=== PATIENT | female | born 1930 | race Caucasian/White ===

== ENCOUNTER 2016-03-11 12:03 | Inpatient (IN) | payer OTHER ==
--- NOTE | 2016-03-11 14:05 | PDOC ---
History of Present Illness - History of Present Illness Initial Comments: 03/11/16 14:56 Patient is an 85 year old female with significant medical hx of DVT, hypertension, hyperlipidemia, diabetes, and dementia who is presenting to the ED for abnormal labs. The patient is accompanied by family member who reports the patient has had high blood sugar the past few days measured as high as 320. The patient also recently saw Dr. Powell who reported she was hyponatremic. The patient complains of nausea and weakness; family member states she vomited a few times last week. The patient recently had biopsy done on a cell growth on the skin of her forehead that revealed cancer. Patient lives at home. PCP: Karson Powell MD <Renetta Tabor - Last Filed: 03/11/16 15:04> <Roman Yoon - Last Filed: 03/11/16 18:37> - General Chief Complaint: Blood Sugar Problem Stated Complaint: PCP SENT, HIGH SUGAR, DIZZY Past History <Renetta Tabor - Last Filed: 03/11/16 15:04> - Past Medical History Anemia: No Asthma: No Cancer: Yes (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) Cardiac Disorders: No CVA: No COPD: No CHF: No Diabetes: Yes Disorders: Yes HTN: Yes Hypercholesterolemia: Yes Suicide Attempt (Hx): No Seizures: No Thyroid Disease: No - Surgical History Abdominal Surgery: No Appendectomy: No Cholecystectomy: No Lung Surgery: Yes (tumor removed from right lung in 1996) Neurologic Surgery: No Orthopedic Surgery: No - Immunization History Immunization Up to Date: Yes - Psycho/Social/Smoking Cessation Hx Anxiety: No Suicidal Ideation: No Smoking Status: Yes Smoking History: Never smoked Years of Tobacco Use: 20 Have you smoked in the past 12 months: No Number of Cigarettes Smoked Daily: 0 If you are a former smoker, when did you quit?: 50yrs ago Information on smoking cessation initiated: No Hx Alcohol Use: No Drug/Substance Use Hx: No Substance Use Type: None Hx Substance Use Treatment: No <Roman Yoon - Last Filed: 03/11/16 18:37> - Past Medical History Allergies/Adverse Reactions: Allergies Allergy/AdvReac Type Severity Reaction Status Date / Time morphine Allergy Mild Swelling Verified 03/11/16 12:04 Home Medications: Ambulatory Orders Acetaminophen [Mapap] 500 mg PO PRN PRN 03/11/16 Amlodipine/Valsartan [Exforge 5-320 mg Tablet] 1 tab PO DAILY 03/11/16 Ammonium Lactate Cream [Lac-Hydrin] 1 applic TP BID 03/11/16 Aspirin [ASA -] 81 mg PO DAILY 03/11/16 Atorvastatin Ca [Lipitor] 10 mg PO DAILY 03/11/16 Dexlansoprazole [Dexilant] 60 mg PO DAILY 03/11/16 Diclofenac Sodium [Voltaren] 100 gm TP BID 03/11/16 Fenofibric Acid [Trilipix -] 45 mg PO DAILY 03/11/16 Furosemide [Lasix] 20 mg PO DAILY 03/11/16 Gabapentin [Neurontin] 100 mg PO BID 03/11/16 Glipizide [Glipizide ER] 10 mg PO BID 03/11/16 Icosapent Ethyl [Vascepa] 2 gm PO BID 03/11/16 Insulin Aspart [Novolog] 0 unit SQ DAILY 03/11/16 Insulin Glargine,Hum.rec.anlog [Toujeo Solostar] 35 unit SQ DAILY 03/11/16 Linaclotide [Linzess] 145 mcg PO DAILY 03/11/16 Nebivolol HCl [Bystolic] 5 mg PO DAILY 03/11/16 Nystatin Powder [Nystop Topical Powder -] 60 gm TP BID 03/11/16 Thiamine HCl [B-1] 100 mg PO DAILY 03/11/16 Review of Systems - Review of Systems Comments:: 03/11/16 14:57 CONSTITUTIONAL: Present: weakness Absent: fever, chills, diaphoresis, malaise, loss of appetite HEENT: Absent: rhinorrhea, nasal congestion, throat pain, throat swelling, difficulty swallowing, mouth swelling, ear pain, eye pain, visual changes CARDIOVASCULAR: Absent: chest pain, syncope, palpitations, irregular heart rate, lightheadedness , peripheral edema RESPIRATORY: Absent: cough, shortness of breath, dyspnea with exertion, orthopnea, wheezing, stridor, hemoptysis GASTROINTESTINAL: Present: nausea, vomiting Absent: abdominal pain, abdominal distension, diarrhea, constipation, melena, hematochezia GENITOURINARY: Absent: dysuria, frequency, urgency, hesitancy, hematuria, flank pain, genital pain MUSCULOSKELETAL: Absent: myalgia, arthralgia, joint swelling SKIN: Absent: rash, itching, pallor HEMATOLOGIC/IMMUNOLOGIC: Absent: easy bleeding, easy bruising, lymphadenopathy, frequent infections ENDOCRINE: Absent: unexplained weight gain, unexplained weight loss, heat intolerance, cold intolerance NEUROLOGIC: Absent: headache, focal weakness or paresthesia, dizziness, unsteady gait, seizure, mental status changes, bladder or bowel incontinence. PSYCHIATRIC: Absent: anxiety, depression, suicidal or homicidal ideation, hallucinations <Renetta Tabor - Last Filed: 03/11/16 15:04> *Physical Exam - Vital Signs Last Vital Signs Temp Pulse Resp BP Pulse Ox 97.5 F L 76 17 126/61 97 03/11/16 12:04 03/11/16 12:04 03/11/16 12:04 03/11/16 12:04 03/11/16 12:04 - Physical Exam Comments: 03/11/16 14:58 GENERAL: Well developed, well nourished. Awake and alert. No acute distress. HEENT: Normocephalic, atraumatic. PERRLA, EOMI. No conjunctival pallor. Sclera are non- icteric. Moist mucous membranes. Oropharynx is clear. NECK: Supple. Full ROM. No JVD. Carotid pulses 2+ and symmetric, without bruits. No thyromegaly. No lymphadenopathy. CARDIOVASCULAR: Regular rate and rhythm. No murmurs, rubs, or gallops. Distal pulses are 2+ and symmetric. PULMONARY: No evidence of respiratory distress. Lungs clear to auscultation bilaterally. No wheezing, rales or rhonchi. ABDOMINAL: Obese. Soft. Non-tender. Non-distended. No rebound or guarding. No organomegaly. Normoactive bowel sounds. MUSCULOSKELETAL: Normal range of motion at all joints. No bony deformities or tenderness. No CVA tenderness. EXTREMITIES: No cyanosis. No clubbing. No edema. No calf tenderness. 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 Warm and dry. Normal capillary refill. No jaundice. NEUROLOGICAL: Alert, awake, demented. No neurological deficits. Symmetric. Good, equal grasp in both hands. Cranial nerves 2-12 intact. Gait is normal without ataxia. PSYCHIATRIC: Cooperative. Good eye contact. Appropriate mood and affect. <Renetta Tabor - Last Filed: 03/11/16 15:04> - Vital Signs Last Vital Signs Temp Pulse Resp BP Pulse Ox 97.5 F L 76 17 126/61 97 03/11/16 12:04 03/11/16 12:04 03/11/16 12:04 03/11/16 12:04 03/11/16 12:04 <Roman Yoon - Last Filed: 03/11/16 18:37> ED Treatment Course - RADIOLOGY Radiograph Interpretation: 03/11/16 15:04 Chest X-Ray Since the prior study of 10/15/2015, again noted is the prominent mediastinum with weak inspiration and some new atelectatic changes in the right and left lower lung parker. Correlation recommended. Reported By: Frankie Bullock MD <Renetta Tabor - Last Filed: 03/11/16 15:04> - LABORATORY CBC & Chemistry Diagram: 03/11/16 15:45 03/11/16 16:40 <Roman Yoon - Last Filed: 03/11/16 18:37> *DC/Admit/Observation/Transfer - Attestations Scribe Attestion: 03/11/16 15:01 Documentation prepared by Renetta Tabor, acting as medical resident for Roman Yoon MD. <Renetta Tabor - Last Filed: 03/11/16 15:04> - Discharge Dispostion Admit: Yes <Roman Yoon - Last Filed: 03/11/16 18:37> Diagnosis at time of Disposition: Hyponatremia, Uncontrolled diabetes mellitus, Chronic kidney disease (CKD) - Discharge Dispostion Condition at time of disposition: Stable - Referrals Referrals: Karson Powell MD [Primary Care Provider] -
[2016-03-11 16:04] LABS: BASOPHIL 1.1 % (0-2.0); EOSINOPHIL 2.2 % (0-4.5); MCH 24.9 pg (25.7-33.7); MCHC 31.8 g/dl (32.0-36.0); MEAN CELL VOLUME 78.5 fl (80-96); NEUTROPHILS 67.5 % (42.8-82.8); RDW 15.6 % (11.6-15.6); WHITE BLOOD COUNT 9.6 K/mm3 (4.0-10.0)
[2016-03-11 16:38] LABS: PLATELET COMMENT2 SLT PLT CLUMPING; PLATELET COMMENT3 UNABLE TO ENUMERATE; PLATELET ESTIMATE ADEQUATE (NORMAL)
[2016-03-11 17:14] LABS: ALBUMIN 3.8 g/dl (3.4-5.0); CALCIUM 9.4 mg/dL (8.5-10.1); CREATININE 1.4 mg/dL (0.55-1.02)
[2016-03-11 17:15] LABS: BILIRUBIN,TOTAL 0.4 mg/dL (0.2-1.0); TOT PROT 7.8 g/dl (6.4-8.2)
[2016-03-11] MEDS ORDERED: SODIUM CHLORIDE 1,000 ML IV SCH (18:15)
[2016-03-11] MEDS ORDERED: FUROSEMIDE 20 MG TABLET (FP) PO PRN (18:46)
[2016-03-11] MEDS ORDERED: ACETAMINOPHEN 325 MG TABLET (FP) PO PRN (18:46)
[2016-03-11] MEDS ORDERED: glipiZIDE 5 MG TABLET (FP) ONE (20:55)
[2016-03-11] MEDS ORDERED: ATORVASTATIN CA 40 MG TABLET (FP) ONE (20:56)
[2016-03-11] MEDS: HEPARIN NA (PORCINE) 5,000 UNITS/ML 1ML VIAL SQ SCH (21:23)
[2016-03-11] MEDS: AMMONIUM LACTATE 12% LOTION 225 GM BOTTLE TP SCH (21:23)
[2016-03-11] MEDS: NYSTATIN POWDER 100,000 UNITS/GM - 15 GM TOPICAL POWDER TP SCH (21:24)
[2016-03-11] MEDS: GABAPENTIN 100 MG CAPSULE (FP) PO SCH (21:24)
[2016-03-11] MEDS: ATORVASTATIN CA 10 MG TABLET (FP) PO SCH (21:24)
[2016-03-11] MEDS ORDERED: INSULIN (NOVOLOG) ASPART 100 UNITS/ML 10ML VIAL ONE (21:29)
[2016-03-11] MEDS: INSULIN SLIDING SCALE (NOVOLOG) 1 VIAL SQ SCH (21:33)
[2016-03-11] MEDS ORDERED: glipiZIDE-XL 10 MG TAB.ER.24 (FP) PO SCH ×2 (22:00→22:06)
[2016-03-11] MEDS ORDERED: PATIENT'S OWN MEDICATION (NON-FORMULARY) (Diclofenac Sodium [Voltaren] 100 GM) TP SCH (22:00)
[2016-03-11] MEDS ORDERED: PATIENT'S OWN MEDICATION (NON-FORMULARY) (Icosapent Ethyl [Vascepa] 2 GM) PO SCH (22:00)
[2016-03-12 05:51] VITALS: BMI 33.5
[2016-03-12] MEDS: INSULIN SLIDING SCALE (NOVOLOG) 1 VIAL SQ SCH ×4 (06:22→21:44)
[2016-03-12] MEDS: INSULIN DETEMIR 100 UNITS/ML MDV SQ SCH (06:22)
[2016-03-12 08:26] LABS: EOSINOPHIL 2.9 % (0-4.5); MCH 25.9 pg (25.7-33.7); MEAN CELL VOLUME 78.4 fl (80-96); MEAN PLT VOLUME 6.6 fl (7.5-11.1); NEUTROPHILS 62.4 % (42.8-82.8); PLATELET COUNT 294 K/MM3 (134-434); RDW 15.4 % (11.6-15.6); WHITE BLOOD COUNT 6.6 K/mm3 (4.0-10.0)
[2016-03-12 08:44] LABS: BILIRUBIN,TOTAL 0.4 mg/dL (0.2-1.0); CALCIUM 8.5 mg/dL (8.5-10.1); CREATININE 1.6 mg/dL (0.55-1.02); TOT PROT 6.1 g/dl (6.4-8.2)
[2016-03-12] MEDS ORDERED: PATIENT'S OWN MEDICATION (NON-FORMULARY) (Amlodipine/Valsartan [Exforge 5-320 Mg Tablet] 1 PO SCH (10:00)
[2016-03-12] MEDS ORDERED: PATIENT'S OWN MEDICATION (NON-FORMULARY) (Linaclotide [Linzess] 145 MCG) PO SCH (10:00)
--- NOTE | 2016-03-12 10:24 | HP ---
Admitting History and Physical - Primary Care Physician PCP: Karson Powell I - Admission Chief Complaint: sent in by pmd for abnormal labs History of Present Illness: Patient is an 85 year old female with significant medical hx of DVT, hypertension, hyperlipidemia, diabetes, and dementia who is presenting to the ED for abnormal labs. The patient is accompanied by family member who reports the patient has had high blood sugar the past few days measured as high as 320. The patient also recently saw Dr. Powell who reported she was hyponatremic. The patient complains of nausea and weakness; family member states she vomited a few times last week. The patient recently had biopsy done on a cell growth on the skin of her forehead that revealed cancer. Patient lives at home. PCP: Karson Powell MD History Source: Family Member Limitations to Obtaining History: Language Barrier - Past Medical History Cardiovascular: Yes: Deep Vein Thrombosis, HTN, Hyperlipdemia Dermatology: Yes: Other (skin cancer at forehead) - Smoking History Smoking history: Never smoked Have you smoked in the past 12 months: No Aproximately how many cigarettes per day: 0 If you are a former smoker, when did you quit?: 50yrs ago - Alcohol/Substance Use Hx Alcohol Use: No Home Medications - Allergies Allergies/Adverse Reactions: Allergies Allergy/AdvReac Type Severity Reaction Status Date / Time morphine Allergy Mild Swelling Verified 03/11/16 12:04 - Home Medications Home Medications: Ambulatory Orders Acetaminophen [Mapap] 500 mg PO PRN PRN 03/11/16 Amlodipine/Valsartan [Exforge 5-320 mg Tablet] 1 tab PO DAILY 03/11/16 Ammonium Lactate Cream [Lac-Hydrin] 1 applic TP BID 03/11/16 Aspirin [ASA -] 81 mg PO DAILY 03/11/16 Atorvastatin Ca [Lipitor] 10 mg PO DAILY 03/11/16 Dexlansoprazole [Dexilant] 60 mg PO DAILY 03/11/16 Diclofenac Sodium [Voltaren] 100 gm TP BID 03/11/16 Fenofibric Acid [Trilipix -] 45 mg PO DAILY 03/11/16 Furosemide [Lasix] 20 mg PO DAILY 03/11/16 Gabapentin [Neurontin] 100 mg PO BID 03/11/16 Glipizide [Glipizide ER] 10 mg PO BID 03/11/16 Icosapent Ethyl [Vascepa] 2 gm PO BID 03/11/16 Insulin Aspart [Novolog] 0 unit SQ DAILY 03/11/16 Insulin Glargine,Hum.rec.anlog [Toujeo Solostar] 35 unit SQ DAILY 03/11/16 Linaclotide [Linzess] 145 mcg PO DAILY 03/11/16 Nebivolol HCl [Bystolic] 5 mg PO DAILY 03/11/16 Nystatin Powder [Nystop Topical Powder -] 60 gm TP BID 03/11/16 Thiamine HCl [B-1] 100 mg PO DAILY 03/11/16 Review of Systems - Review of Systems Respiratory: reports: No Symptoms Gastrointestinal: reports: No Symptoms Physical Examination Vital Signs: Vital Signs Temperature 98.1 F 03/12/16 05:39 Pulse Rate 69 03/12/16 05:39 Respiratory Rate 16 03/12/16 05:39 Blood Pressure 144/64 03/12/16 05:39 O2 Sat by Pulse Oximetry (%) 96 03/12/16 05:39 Constitutional: Yes: Calm, Thin Neck: Yes: Trachea Midline Cardiovascular: Yes: Regular Rate and Rhythm, S1, S2 Respiratory: Yes: CTA Bilaterally Gastrointestinal: Yes: Normal Bowel Sounds, Soft Neurological: Yes: Alert, Oriented Labs: CBC, BMP 03/12/16 07:00 03/12/16 07:00 Imaging - Results Chest X-ray: Report Reviewed Problem List - Problems (1) Chronic kidney disease (CKD) Assessment/Plan: renal consult renal sono Code(s): N18.9 - CHRONIC KIDNEY DISEASE, UNSPECIFIED Qualifiers: (2) DVT (deep venous thrombosis) Assessment/Plan: heparin sub q Code(s): I82.409 - ACUTE EMBOLISM AND THOMBOS UNSP DEEP VN UNSP LOWER EXTREMITY Qualifiers: DVT location: lower extremity Laterality: left Chronicity: chronic (3) Hyponatremia Assessment/Plan: iv hydration check tsh correct hyperglycemia Code(s): E87.1 - HYPO-OSMOLALITY AND HYPONATREMIA (4) Uncontrolled diabetes mellitus Assessment/Plan: endo insulin bgm hga1c nuerontin Code(s): E11.65 - TYPE 2 DIABETES MELLITUS WITH HYPERGLYCEMIA Qualifiers: Diabetes mellitus type: type 2 Diabetes mellitus complication status: with neurologic complications Diabetes mellitus complication detail: with unspecified neuropathy (5) Hyperlipidemia Assessment/Plan: triplipx and lovaza check lipid panel Code(s): E78.5 - HYPERLIPIDEMIA, UNSPECIFIED Qualifiers: Hyperlipidemia type: mixed hyperlipidemia Qualified Code(s): E78.2 - Mixed hyperlipidemia (6) Hypertension Assessment/Plan: stable Code(s): I10 - ESSENTIAL (PRIMARY) HYPERTENSION Qualifiers: Hypertension type: essential hypertension Qualified Code(s): I10 - Essential (primary) hypertension
[2016-03-12 11:12] LABS: INR 1.45 (0.82-1.09); PROTHROMBIN TIME (PATIENT) 16.1 SEC (9.98-11.88)
[2016-03-12] MEDS ORDERED: PT OWN MED DRAWER 7, Y5N ONE ×3 (11:26→21:16)
[2016-03-12] MEDS: amLODIPine BESYLATE 5 MG TABLET (FP) PO SCH (11:29)
[2016-03-12] MEDS: THIAMINE HCL 100 MG TABLET (FP) PO SCH (11:29)
[2016-03-12] MEDS: ASPIRIN 81 MG CHEWABLE TABLETS PO SCH (11:29)
[2016-03-12] MEDS: HEPARIN NA (PORCINE) 5,000 UNITS/ML 1ML VIAL SQ SCH ×2 (11:30→21:37)
[2016-03-12] MEDS: GABAPENTIN 100 MG CAPSULE (FP) PO SCH ×2 (11:30→21:44)
[2016-03-12] MEDS: VALSARTAN 160 MG TABLET (UD) PO SCH (11:30)
[2016-03-12] MEDS: LIDOCAINE 5% TOPICAL PATCH TP SCH (11:34)
[2016-03-12] MEDS: PANTOPRAZOLE 40 MG TABLET (FP) PO SCH (11:34)
--- NOTE | 2016-03-12 11:49 | CONSULT ---
Consult Consult Specialty:: Nephrology... Drs. Sam/ Brady Referred by:: Dr. Paul Reason for Consultation:: Thank you for the consult referral. Patient is an 85 y/o female who is found to have low serum Sodium - History of Present Illness Chief Complaint: The patient has h/o DM2. Recently her serum glucose had been running high. 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 Cardio/Vascular: Yes: Deep Vein Thrombosis, HTN, Hyperlipdemia Renal/: Yes: Renal Inusuff Dermatology: Yes: Other (skin cancer at forehead) - Alcohol/Substance Use Hx Alcohol Use: No - Smoking History Smoking history: Never smoked Have you smoked in the past 12 months: No Aproximately how many cigarettes per day: 0 If you are a former smoker, when did you quit?: 50yrs ago Home Medications - Allergies Allergies/Adverse Reactions: Allergies Allergy/AdvReac Type Severity Reaction Status Date / Time morphine Allergy Mild Swelling Verified 03/11/16 12:04 - Home Medications Home Medications: Ambulatory Orders Acetaminophen [Mapap] 500 mg PO PRN PRN 03/11/16 Amlodipine/Valsartan [Exforge 5-320 mg Tablet] 1 tab PO DAILY 03/11/16 Ammonium Lactate Cream [Lac-Hydrin] 1 applic TP BID 03/11/16 Aspirin [ASA -] 81 mg PO DAILY 03/11/16 Atorvastatin Ca [Lipitor] 10 mg PO DAILY 03/11/16 Dexlansoprazole [Dexilant] 60 mg PO DAILY 03/11/16 Diclofenac Sodium [Voltaren] 100 gm TP BID 03/11/16 Fenofibric Acid [Trilipix -] 45 mg PO DAILY 03/11/16 Furosemide [Lasix] 20 mg PO DAILY 03/11/16 Gabapentin [Neurontin] 100 mg PO BID 03/11/16 Glipizide [Glipizide ER] 10 mg PO BID 03/11/16 Icosapent Ethyl [Vascepa] 2 gm PO BID 03/11/16 Insulin Aspart [Novolog] 0 unit SQ DAILY 03/11/16 Insulin Glargine,Hum.rec.anlog [Toujeo Solostar] 35 unit SQ DAILY 03/11/16 Linaclotide [Linzess] 145 mcg PO DAILY 03/11/16 Nebivolol HCl [Bystolic] 5 mg PO DAILY 03/11/16 Nystatin Powder [Nystop Topical Powder -] 60 gm TP BID 03/11/16 Thiamine HCl [B-1] 100 mg PO DAILY 03/11/16 Review of Systems - Review of Systems Constitutional: denies: No Symptoms, Chills, Diaphoresis, Fever, Lethargy, Loss of Appetite, Malaise, Night Sweats, Unintentional Wgt. Loss, Weakness, Other HENT: denies: No Symptoms, Difficult Swallowing, Ear Discharge, Ear Pain, Epistaxis, Gingival Bleeding, Hearing Loss, Mouth Swelling, Nasal Congestion, Ocular Prosthesis, Throat Pain, Toothache, Ringing in Ears, Other Cardiovascular: denies: No Symptoms, Chest Pain, Edema, Palpitations, Shortness of Breath, Other Gastrointestinal: denies: No Symptoms, Abdominal Pain, Bloating, Constipation, Diarrhea, Dysphagia, Indigestion, Melena, Nausea, Rectal Bleeding, Vomiting, Vomiting Blood, Other Hematology/Lymphatic: denies: No Symptoms, Easily Bruised, Excessive Bleeding, Swollen Glands, Other Psychiatric: denies: No Symptoms, Altered Sleep Pattern, Anxiety, Depression, Hallucinations, Panic, Paranoia, Suicidal, Other Physical Exam Vital Signs: Vital Signs Temperature 98.1 F 03/12/16 05:39 Pulse Rate 69 03/12/16 05:39 Respiratory Rate 16 03/12/16 05:39 Blood Pressure 144/64 03/12/16 05:39 O2 Sat by Pulse Oximetry (%) 96 03/12/16 05:39 Constitutional: Yes: Well Nourished Eyes: Yes: WNL, Conjunctiva Clear, EOM Intact HENT: Yes: WNL, Atraumatic, Normocephalic Neck: Yes: WNL, Supple, Trachea Midline Cardiovascular: Yes: WNL, Regular Rate and Rhythm Respiratory: Yes: WNL, Regular, CTA Bilaterally Gastrointestinal: Yes: WNL, Normal Bowel Sounds ...Rectal Exam: Yes: WNL Renal/: Yes: WNL Breast(s): Yes: WNL Musculoskeletal: Yes: WNL Extremities: Yes: WNL Edema: No Integumentary: Yes: WNL Neurological: Yes: WNL, Alert, Oriented ...Motor Strength: WNL Psychiatric: Yes: WNL Labs: CBC, BMP 03/12/16 07:00 03/12/16 07:00 Problem List - Problems (1) Chronic kidney disease (CKD) Code(s): N18.9 - CHRONIC KIDNEY DISEASE, UNSPECIFIED Qualifiers: (2) Hyponatremia Code(s): E87.1 - HYPO-OSMOLALITY AND HYPONATREMIA (3) Uncontrolled diabetes mellitus Code(s): E11.65 - TYPE 2 DIABETES MELLITUS WITH HYPERGLYCEMIA Qualifiers: Diabetes mellitus type: type 2 Diabetes mellitus complication status: with neurologic complications Diabetes mellitus complication detail: with unspecified neuropathy (4) Diabetes Code(s): E11.9 - TYPE 2 DIABETES MELLITUS WITHOUT COMPLICATIONS Qualifiers: Diabetes mellitus type: type 2 Diabetes mellitus complication status: with neurologic complications Diabetes mellitus complication detail: with unspecified neuropathy Diabetes mellitus residential insulin use: with watermaster use Qualified Code(s): E11.40 - Type 2 diabetes mellitus with diabetic neuropathy, unspecified; 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 The patient may have an underlying Chronic hyponatremia from reset osmostat. But additionally an elemant of superimposed Acute hyponatremia is likely. While YENNI inhibitors and ARBs can cause Hyponatremia, the contributory significance of the same in her is most likely minimal There may be additional factors such as excess thirst and drinking, elevated blood Glucose (now better) and possible presence of non-osmotic ADH release. Basic w/u ordered. Will stop IV saline. Might further worsen the Hyponatremia in presence of ADH. Loop diuretics to facilitate free water excretion. Thank you will follow with you. Amilcar Lin
[2016-03-12] MEDS: FUROSEMIDE 40 MG TABLET (FP) PO SCH (13:24)
[2016-03-12] MEDS: NEBIVOLOL 5 MG TABLET (FP) PO SCH (15:43)
[2016-03-12] MEDS: NYSTATIN POWDER 100,000 UNITS/GM - 15 GM TOPICAL POWDER TP SCH ×2 (15:44→21:46)
[2016-03-12] MEDS: FENOFIBRIC ACID 45 MG CAP PO SCH (15:44)
[2016-03-12 16:45] LABS: URINE APPEARANCE SLCLOUDY; URINE BILIRUBIN NEGATIVE (NEGATIVE); URINE BLOOD 1+ (NEGATIVE); URINE COLOR LTYELLOW; URINE GLUCOSE (UA) 3+ (NEGATIVE); URINE KETONE NEGATIVE (NEGATIVE); URINE LEUK ESTERASE 3+ (NEGATIVE); URINE NITRITE POSITIVE (NEGATIVE); URINE PROTEIN NEGATIVE (NEGATIVE); URINE UROBILINOGEN NEGATIVE E.U./dl (0.2-1.0)
[2016-03-12 16:52] LABS: URINE BACTERIA MODERATE /hpf (NONE SEEN); URINE MUCUS MANY; URINE RBC 1 /hpf (0-3); URINE WBC 16 /hpf (3-5)
[2016-03-12] MEDS: AMMONIUM LACTATE 12% LOTION 225 GM BOTTLE TP SCH ×2 (17:51→23:00)
[2016-03-12] MEDS: ATORVASTATIN CA 10 MG TABLET (FP) PO SCH (21:43)
[2016-03-12] MEDS: OMEGA-3 ACID ETHYL ESTERS (FATTY-ACIDS) 1 GM CAPSULE (FP) PO SCH (21:44)
--- NOTE | 2016-03-13 01:59 | CONSULT ---
Consult Consult Specialty:: endocrine / diabetes mellitus Referred by:: dr.saba blas Reason for Consultation:: iddm nausea and vomiting hyponatremia - History of Present Illness Chief Complaint: nausea vomiting History of Present Illness: 85 year old female with significant medical hx of DVT, hypertension, hyperlipidemia, diabetes, and dementia who is presenting to the ED for abnormal labs. 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 Cardio/Vascular: Yes: Deep Vein Thrombosis, HTN, Hyperlipdemia Renal/: Yes: Renal Inusuff Dermatology: Yes: Other (skin cancer at forehead) - Alcohol/Substance Use Hx Alcohol Use: No - Smoking History Smoking history: Never smoked Have you smoked in the past 12 months: No Aproximately how many cigarettes per day: 0 If you are a former smoker, when did you quit?: 50yrs ago Home Medications - Allergies Allergies/Adverse Reactions: Allergies Allergy/AdvReac Type Severity Reaction Status Date / Time morphine Allergy Mild Swelling Verified 03/11/16 12:04 - Home Medications Home Medications: Ambulatory Orders Acetaminophen [Mapap] 500 mg PO PRN PRN 03/11/16 Amlodipine/Valsartan [Exforge 5-320 mg Tablet] 1 tab PO DAILY 03/11/16 Ammonium Lactate Cream [Lac-Hydrin] 1 applic TP BID 03/11/16 Aspirin [ASA -] 81 mg PO DAILY 03/11/16 Atorvastatin Ca [Lipitor] 10 mg PO DAILY 03/11/16 Dexlansoprazole [Dexilant] 60 mg PO DAILY 03/11/16 Diclofenac Sodium [Voltaren] 100 gm TP BID 03/11/16 Fenofibric Acid [Trilipix -] 45 mg PO DAILY 03/11/16 Furosemide [Lasix] 20 mg PO DAILY 03/11/16 Gabapentin [Neurontin] 100 mg PO BID 03/11/16 Glipizide [Glipizide ER] 10 mg PO BID 03/11/16 Icosapent Ethyl [Vascepa] 2 gm PO BID 03/11/16 Insulin Aspart [Novolog] 0 unit SQ DAILY 03/11/16 Insulin Glargine,Hum.rec.anlog [Toujeo Solostar] 35 unit SQ DAILY 03/11/16 Linaclotide [Linzess] 145 mcg PO DAILY 03/11/16 Nebivolol HCl [Bystolic] 5 mg PO DAILY 03/11/16 Nystatin Powder [Nystop Topical Powder -] 60 gm TP BID 03/11/16 Thiamine HCl [B-1] 100 mg PO DAILY 03/11/16 Review of Systems - Review of Systems Constitutional: reports: Lethargy, Loss of Appetite Eyes: reports: No Symptoms HENT: reports: No Symptoms Neck: reports: No Symptoms Cardiovascular: reports: Shortness of Breath Respiratory: reports: Exercise Intolerance Gastrointestinal: reports: Constipation, Indigestion Genitourinary: reports: No Symptoms Breasts: reports: No Symptoms Reported Musculoskeletal: reports: No Symptoms Integumentary: reports: No Symptoms Neurological: reports: Weakness Endocrine: reports: No Symptoms Hematology/Lymphatic: reports: No Symptoms Psychiatric: reports: No Symptoms Physical Exam Vital Signs: Vital Signs Temperature 97.8 F 03/13/16 01:37 Pulse Rate 73 03/13/16 01:37 Respiratory Rate 16 03/13/16 01:37 Blood Pressure 147/69 03/13/16 01:37 O2 Sat by Pulse Oximetry (%) 100 03/12/16 21:00 Constitutional: Yes: Anxious Eyes: Yes: EOM Intact HENT: Yes: Normocephalic Neck: Yes: Trachea Midline Cardiovascular: Yes: Regular Rate and Rhythm Respiratory: Yes: CTA Bilaterally Gastrointestinal: Yes: Normal Bowel Sounds ...Rectal Exam: Yes: Deferred Renal/: Yes: WNL Breast(s): Yes: WNL Musculoskeletal: Yes: WNL Extremities: Yes: WNL Edema: No Integumentary: Yes: WNL Neurological: Yes: WNL, Alert, Oriented ...Motor Strength: WNL Psychiatric: Yes: Alert Labs: CBC, BMP 03/12/16 07:00 03/12/16 07:00 Problem List - Problems (1) Chronic kidney disease (CKD) Code(s): N18.9 - CHRONIC KIDNEY DISEASE, UNSPECIFIED Qualifiers: Chronic kidney disease stage: stage 1 Qualified Code(s): N18.1 - Chronic kidney disease, stage 1 (2) Hyponatremia Code(s): E87.1 - HYPO-OSMOLALITY AND HYPONATREMIA (3) Uncontrolled diabetes mellitus Code(s): E11.65 - TYPE 2 DIABETES MELLITUS WITH HYPERGLYCEMIA Qualifiers: Diabetes mellitus type: type 2 Diabetes mellitus complication status: with neurologic complications Diabetes mellitus complication detail: with unspecified neuropathy (4) Back pain Code(s): M54.9 - DORSALGIA, UNSPECIFIED Assessment/Plan iddm ckd hyponatremia gastroparesis dehydration htn Current Active Problems Chest pain (Acute) Chronic kidney disease (CKD) (Acute) DVT (deep venous thrombosis) (Acute) Dementia (Acute) Diastolic dysfunction without heart failure (Acute) Hyponatremia (Acute) Uncontrolled diabetes mellitus (Acute) Abnormal Lab Results 03/12/16 03/12/16 03/12/16 07:00 07:00 10:05 Hgb 10.3 L D Hct 31.1 L D MCV 78.4 L MPV 6.6 L Monocytes % 11.2 H INR 1.45 H Sodium 129 L Chloride 96 L BUN 22 H Creatinine 1.6 H Random Glucose 163 H D Total Protein 6.1 L D Albumin 3.0 L D Urine Glucose (UA) Urine Blood Ur Leukocyte Esterase 03/12/16 14:45 Hgb Hct MCV MPV Monocytes % INR Sodium Chloride BUN Creatinine Random Glucose Total Protein Albumin Urine Glucose (UA) 3+ H Urine Blood 1+ H Ur Leukocyte Esterase 3+ H Laboratory Tests 03/12/16 03/12/16 03/12/16 07:00 07:00 12:34 WBC 6.6 D RBC 3.96 Hgb 10.3 L D Hct 31.1 L D MCV 78.4 L MCHC 33.0 RDW 15.4 Plt Count 294 Neutrophils % 62.4 Sodium 129 L Potassium 4.3 Chloride 96 L Carbon Dioxide 24 Anion Gap 9 BUN 22 H Creatinine 1.6 H Creat Clearance w eGFR 30.56 POC Glucometer 244 Plan : bgm qid novolog coverage levemir 30 units am ck hba1c ck cortisol level ck tsh free t4
[2016-03-13] MEDS: INSULIN DETEMIR 100 UNITS/ML MDV SQ SCH (06:32)
[2016-03-13] MEDS: FUROSEMIDE 40 MG TABLET (FP) PO SCH ×2 (06:33→15:27)
[2016-03-13] MEDS: INSULIN SLIDING SCALE (NOVOLOG) 1 VIAL SQ SCH ×4 (06:36→22:41)
[2016-03-13 08:01] LABS: ALBUMIN 3.1 g/dl (3.4-5.0); BILIRUBIN,TOTAL 0.4 mg/dL (0.2-1.0); CALCIUM 8.6 mg/dL (8.5-10.1); CREATININE 1.6 mg/dL (0.55-1.02); FREE T4 1.24 ng/dl (0.76-1.46); THYROID STIMULATING HORMONE 2.78 uIU/ml (0.358-3.74); TOT PROT 6.7 g/dl (6.4-8.2)
[2016-03-13] MEDS ORDERED: PT OWN MED DRAWER 7, Y5N ONE ×2 (10:33→22:28)
[2016-03-13] MEDS: THIAMINE HCL 100 MG TABLET (FP) PO SCH (10:35)
[2016-03-13] MEDS: ASPIRIN 81 MG CHEWABLE TABLETS PO SCH (10:35)
[2016-03-13] MEDS: PANTOPRAZOLE 40 MG TABLET (FP) PO SCH (10:35)
[2016-03-13] MEDS: GABAPENTIN 100 MG CAPSULE (FP) PO SCH ×2 (10:36→22:31)
[2016-03-13] MEDS: amLODIPine BESYLATE 5 MG TABLET (FP) PO SCH (10:36)
[2016-03-13] MEDS: VALSARTAN 160 MG TABLET (UD) PO SCH (10:36)
[2016-03-13] MEDS: HEPARIN NA (PORCINE) 5,000 UNITS/ML 1ML VIAL SQ SCH ×2 (10:36→22:30)
[2016-03-13] MEDS: NEBIVOLOL 5 MG TABLET (FP) PO SCH (10:37)
[2016-03-13] MEDS: AMMONIUM LACTATE 12% LOTION 225 GM BOTTLE TP SCH ×2 (10:37→22:31)
[2016-03-13] MEDS: OMEGA-3 ACID ETHYL ESTERS (FATTY-ACIDS) 1 GM CAPSULE (FP) PO SCH ×2 (10:37→22:31)
[2016-03-13] MEDS: NYSTATIN POWDER 100,000 UNITS/GM - 15 GM TOPICAL POWDER TP SCH ×2 (10:39→22:31)
[2016-03-13] MEDS: FENOFIBRIC ACID 45 MG CAP PO SCH (10:39)
[2016-03-13] MEDS: LIDOCAINE 5% TOPICAL PATCH TP SCH (10:39)
--- NOTE | 2016-03-13 11:52 | PN ---
Progress Note (short form) - Note Progress Note: Renal Follow up for CKD and Hyponatremia Pt seen and examined at the bedside awake and alert w/o complaints no sob, abd pain, N/V/D son at the bedside (he translated the interview) Vital Signs Temperature 97.7 F 03/13/16 10:00 Pulse Rate 67 03/13/16 10:00 Respiratory Rate 20 03/13/16 10:00 Blood Pressure 120/60 03/13/16 10:00 O2 Sat by Pulse Oximetry (%) 100 03/12/16 21:00 Intake & Output 03/10/16 03/11/16 03/12/16 03/13/16 23:59 23:59 23:59 23:59 Intake Total 1660 120 Balance 1660 120 Weight 189 lb 195 lb 9.6 oz Gen: NAD, awake and alert CVS: RRR Lungs: CTA Abd: soft NT/ND Ext: No edema, clubbing or cyanosis CBC, BMP 03/12/16 07:00 03/13/16 06:25 Current Medications Acetaminophen (Tylenol -) 650 mg PO Q6H PRN PRN Reason: PAIN Amlodipine Besylate (Norvasc -) 5 mg PO DAILY [facility] Last Admin: 03/13/16 10:36 Dose: 5 mg Aspirin (Asa -) 81 mg PO DAILY [facility] Last Admin: 03/13/16 10:35 Dose: 81 mg Atorvastatin Calcium (Lipitor -) 10 mg PO HS [facility] Last Admin: 03/12/16 21:43 Dose: 10 mg Fenofibric Acid (Trilipix -) 45 mg PO DAILY [facility] Last Admin: 03/13/16 10:39 Dose: 45 mg Furosemide (Lasix -) 40 mg PO BID@0600,1400 [facility] Last Admin: 03/13/16 06:33 Dose: 40 mg Gabapentin (Neurontin -) 100 mg PO BID [facility] Last Admin: 03/13/16 10:36 Dose: 100 mg Heparin Sodium (Porcine) (Heparin -) 5,000 unit SQ BID [facility] Last Admin: 03/13/16 10:36 Dose: 5,000 unit Insulin Aspart (Novolog Vial Sliding Scale -) 1 vial SQ ACHS [facility] PRN Reason: Protocol Last Admin: 03/13/16 06:36 Dose: Not Given Insulin Detemir (Levemir Vial) 30 units SQ AM [facility] Last Admin: 03/13/16 06:32 Dose: 30 units Lactic Acid (Lac-Hydrin 12) 1 applic TP BID [facility] Last Admin: 03/13/16 10:37 Dose: 1 applic Lidocaine (Lidoderm Patch -) 1 patch TP DAILY [facility] Last Admin: 03/13/16 10:39 Dose: Not Given Nebivolol (Bystolic -) 5 mg PO DAILY [facility] Last Admin: 03/13/16 10:37 Dose: 5 mg Nystatin (Nystop Powder -) 1 applic TP BID [facility] Last Admin: 03/13/16 10:39 Dose: 1 applic Sekdf-9-Stid Ethyl Esters (Lovaza -) 2 gm PO BID [facility] Last Admin: 03/13/16 10:37 Dose: 2 gm Pantoprazole Sodium (Protonix -) 40 mg PO DAILY [facility] Last Admin: 03/13/16 10:35 Dose: 40 mg Thiamine HCl (Vitamin B1 -) 100 mg PO DAILY [facility] Last Admin: 03/13/16 10:35 Dose: 100 mg Valsartan (Diovan -) 320 mg PO DAILY [facility] Last Admin: 03/13/16 10:36 Dose: 320 mg A/P 85 year old woman with PMhx of DVT, Hypertension, HLD, DM, Dementia edical hx of DVT, hypertension, hyperlipidemia, diabetes, and dementia who is presenting to the ED for elevated blood glucose and found to have Na of 129 and Cr of 1.6. 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
--- NOTE | 2016-03-13 12:36 | PN ---
Progress Note, Physician Chief Complaint: patient seen in bed no distress feeling better - Current Medication List Current Medications: Active Medications Acetaminophen (Tylenol -) 650 mg PO Q6H PRN PRN Reason: PAIN Amlodipine Besylate (Norvasc -) 5 mg PO DAILY [facility] Last Admin: 03/13/16 10:36 Dose: 5 mg Aspirin (Asa -) 81 mg PO DAILY [facility] Last Admin: 03/13/16 10:35 Dose: 81 mg Atorvastatin Calcium (Lipitor -) 10 mg PO HS [facility] Last Admin: 03/12/16 21:43 Dose: 10 mg Fenofibric Acid (Trilipix -) 45 mg PO DAILY [facility] Last Admin: 03/13/16 10:39 Dose: 45 mg Furosemide (Lasix -) 40 mg PO BID@0600,1400 [facility] Last Admin: 03/13/16 06:33 Dose: 40 mg Gabapentin (Neurontin -) 100 mg PO BID [facility] Last Admin: 03/13/16 10:36 Dose: 100 mg Heparin Sodium (Porcine) (Heparin -) 5,000 unit SQ BID [facility] Last Admin: 03/13/16 10:36 Dose: 5,000 unit Insulin Aspart (Novolog Vial Sliding Scale -) 1 vial SQ ACHS [facility] PRN Reason: Protocol Last Admin: 03/13/16 12:19 Dose: 2 units Insulin Detemir (Levemir Vial) 30 units SQ AM [facility] Last Admin: 03/13/16 06:32 Dose: 30 units Lactic Acid (Lac-Hydrin 12) 1 applic TP BID [facility] Last Admin: 03/13/16 10:37 Dose: 1 applic Lidocaine (Lidoderm Patch -) 1 patch TP DAILY [facility] Last Admin: 03/13/16 10:39 Dose: Not Given Nebivolol (Bystolic -) 5 mg PO DAILY [facility] Last Admin: 03/13/16 10:37 Dose: 5 mg Nystatin (Nystop Powder -) 1 applic TP BID [facility] Last Admin: 03/13/16 10:39 Dose: 1 applic Tdonw-5-Sttz Ethyl Esters (Lovaza -) 2 gm PO BID [facility] Last Admin: 03/13/16 10:37 Dose: 2 gm Pantoprazole Sodium (Protonix -) 40 mg PO DAILY [facility] Last Admin: 03/13/16 10:35 Dose: 40 mg Silver Sulfadiazine (Silvadene -) 1 applic TP BID [facility] Thiamine HCl (Vitamin B1 -) 100 mg PO DAILY [facility] Last Admin: 03/13/16 10:35 Dose: 100 mg Valsartan (Diovan -) 320 mg PO DAILY [facility] Last Admin: 03/13/16 10:36 Dose: 320 mg - Objective Vital Signs: Vital Signs Temperature 97.3 F L 03/13/16 12:16 Pulse Rate 70 03/13/16 12:16 Respiratory Rate 18 03/13/16 12:16 Blood Pressure 128/60 03/13/16 12:16 O2 Sat by Pulse Oximetry (%) 100 03/12/16 21:00 Constitutional: Yes: Calm Neck: Yes: Trachea Midline Cardiovascular: Yes: Regular Rate and Rhythm, S1, S2 Respiratory: Yes: CTA Bilaterally Gastrointestinal: Yes: Normal Bowel Sounds, Soft Neurological: Yes: Alert, Oriented Labs: CBC, BMP 03/12/16 07:00 03/13/16 06:25 INR, PTT INR 1.45 (0.82-1.09) H 03/12/16 10:05 Problem List - Problems (1) Chronic kidney disease (CKD) Assessment/Plan: renal consult noted renal sono right kidney slightly smaller claudia need outpatient renal fu Code(s): N18.9 - CHRONIC KIDNEY DISEASE, UNSPECIFIED Qualifiers: Chronic kidney disease stage: stage 1 Qualified Code(s): N18.1 - Chronic kidney disease, stage 1 (2) DVT (deep venous thrombosis) Assessment/Plan: heparin sub q couamdin was stopped by pmd Code(s): I82.409 - ACUTE EMBOLISM AND THOMBOS UNSP DEEP VN UNSP LOWER EXTREMITY Qualifiers: DVT location: lower extremity Laterality: left Chronicity: chronic (3) Hyponatremia Assessment/Plan: sodium is improving Code(s): E87.1 - HYPO-OSMOLALITY AND HYPONATREMIA (4) Uncontrolled diabetes mellitus Assessment/Plan: endo consult noted insulin increased bgm hga1c 9.3 nuerontin Code(s): E11.65 - TYPE 2 DIABETES MELLITUS WITH HYPERGLYCEMIA Qualifiers: Diabetes mellitus type: type 2 Diabetes mellitus complication status: with neurologic complications Diabetes mellitus complication detail: with unspecified neuropathy (5) Hyperlipidemia Code(s): E78.5 - HYPERLIPIDEMIA, UNSPECIFIED Qualifiers: Hyperlipidemia type: mixed hyperlipidemia Qualified Code(s): E78.2 - Mixed hyperlipidemia (6) Hypertension Code(s): I10 - ESSENTIAL (PRIMARY) HYPERTENSION Qualifiers: Hypertension type: essential hypertension Qualified Code(s): I10 - Essential (primary) hypertension (7) Pressure ulcer Assessment/Plan: silvadene prostat and vitamin c Code(s): L89.90 - PRESSURE ULCER OF UNSPECIFIED SITE, UNSPECIFIED STAGE Assessment/Plan possible dc in am if labs are better
[2016-03-13] MEDS: AMINO ACIDS/PROTEIN HYDROLYS SUGAR-FREE 30 ML PACKET PO SCH (16:59)
[2016-03-13] MEDS ORDERED: INSULIN (NOVOLOG) ASPART 100 UNITS/ML 10ML VIAL ONE (17:37)
[2016-03-13] MEDS: SILVER SULFADIAZINE 1% TOP CREAM 50 GM JAR TP SCH (22:31)
[2016-03-13] MEDS: ATORVASTATIN CA 10 MG TABLET (FP) PO SCH (22:31)
[2016-03-14] MEDS: FUROSEMIDE 40 MG TABLET (FP) PO SCH (05:58)
[2016-03-14] MEDS: INSULIN DETEMIR 100 UNITS/ML MDV SQ SCH (05:59)
[2016-03-14] MEDS: INSULIN SLIDING SCALE (NOVOLOG) 1 VIAL SQ SCH ×4 (05:59→21:42)
[2016-03-14] MEDS ORDERED: POLYETHYLENE GLYCOL 3350 119 GM BTL PO PRN (06:34)
[2016-03-14 07:53] LABS: BASOPHIL 1.2 % (0-2.0); EOSINOPHIL 4.7 % (0-4.5); MCH 25.7 pg (25.7-33.7); MCHC 32.9 g/dl (32.0-36.0); MEAN CELL VOLUME 78.1 fl (80-96); MEAN PLT VOLUME 6.8 fl (7.5-11.1); NEUTROPHILS 56.8 % (42.8-82.8); PLATELET COUNT 329 K/MM3 (134-434); RDW 15.5 % (11.6-15.6); WHITE BLOOD COUNT 6.2 K/mm3 (4.0-10.0)
[2016-03-14 08:31] LABS: ALBUMIN 3.2 g/dl (3.4-5.0); BILIRUBIN,TOTAL 0.4 mg/dL (0.2-1.0); CREATININE 2.3 mg/dL (0.55-1.02); TOT PROT 6.6 g/dl (6.4-8.2)
--- NOTE | 2016-03-14 08:40 | PN ---
Progress Note, Physician - Current Medication List Current Medications: Active Medications Acetaminophen (Tylenol -) 650 mg PO Q6H PRN PRN Reason: PAIN Amino Acids (Prostat Sugar-Free Packet -) 30 ml PO BID@0800,1730 [facility] Last Admin: 03/13/16 16:59 Dose: 30 ml Amlodipine Besylate (Norvasc -) 5 mg PO DAILY [facility] Last Admin: 03/13/16 10:36 Dose: 5 mg Ascorbic Acid (Vitamin C -) 500 mg PO DAILY [facility] Aspirin (Asa -) 81 mg PO DAILY [facility] Last Admin: 03/13/16 10:35 Dose: 81 mg Atorvastatin Calcium (Lipitor -) 10 mg PO HS [facility] Last Admin: 03/13/16 22:31 Dose: 10 mg Fenofibric Acid (Trilipix -) 45 mg PO DAILY [facility] Last Admin: 03/13/16 10:39 Dose: 45 mg Gabapentin (Neurontin -) 100 mg PO BID [facility] Last Admin: 03/13/16 22:31 Dose: 100 mg Heparin Sodium (Porcine) (Heparin -) 5,000 unit SQ BID [facility] Last Admin: 03/13/16 22:30 Dose: 5,000 unit Insulin Aspart (Novolog Vial Sliding Scale -) 1 vial SQ ACHS [facility] PRN Reason: Protocol Last Admin: 03/14/16 05:59 Dose: 2 units Insulin Detemir (Levemir Vial) 30 units SQ AM [facility] Last Admin: 03/14/16 05:59 Dose: 30 units Lactic Acid (Lac-Hydrin 12) 1 applic TP BID [facility] Last Admin: 03/13/16 22:31 Dose: 1 applic Lidocaine (Lidoderm Patch -) 1 patch TP DAILY [facility] Last Admin: 03/13/16 10:39 Dose: Not Given Nebivolol (Bystolic -) 5 mg PO DAILY [facility] Last Admin: 03/13/16 10:37 Dose: 5 mg Nystatin (Nystop Powder -) 1 applic TP BID [facility] Last Admin: 03/13/16 22:31 Dose: 1 applic Bljjh-9-Fxhs Ethyl Esters (Lovaza -) 2 gm PO BID [facility] Last Admin: 03/13/16 22:31 Dose: 2 gm Pantoprazole Sodium (Protonix -) 40 mg PO DAILY [facility] Last Admin: 03/13/16 10:35 Dose: 40 mg Polyethylene Glycol (Miralax (For Daily Use) -) 17 gm PO DAILY [facility] Sulfadiazine (Silvadene -) 1 applic TP BID [facility] Last Admin: 03/13/16 22:31 Dose: 1 applic Thiamine HCl (Vitamin B1 -) 100 mg PO DAILY [facility] Last Admin: 03/13/16 10:35 Dose: 100 mg Valsartan (Diovan -) 320 mg PO DAILY [facility] Last Admin: 03/13/16 10:36 Dose: 320 mg - Objective Vital Signs: Vital Signs Temperature 97.9 F 03/14/16 07:03 Pulse Rate 73 03/14/16 07:03 Respiratory Rate 20 03/14/16 07:03 Blood Pressure 136/64 03/14/16 07:03 O2 Sat by Pulse Oximetry (%) 100 03/13/16 21:00 Labs: CBC, BMP 03/14/16 06:20 03/14/16 06:20 INR, PTT INR 1.45 (0.82-1.09) H 03/12/16 10:05 Assessment/Plan - Problems (1) Chronic kidney disease (CKD) Assessment/Plan: renal consult noted renal sono right kidney slightly smaller will need outpatient renal fu RENAL FUNCTION WORSENING--HOLD LASIX--CXR--BLADDER SCAN Code(s): N18.9 - CHRONIC KIDNEY DISEASE, UNSPECIFIED Qualifiers: Chronic kidney disease stage: stage 1 Qualified Code(s): N18.1 - Chronic kidney disease, stage 1 (2) DVT (deep venous thrombosis) Assessment/Plan: heparin sub q Coumadin was stopped by pmd Code(s): I82.409 - ACUTE EMBOLISM AND THOMBOS UNSP DEEP VN UNSP LOWER EXTREMITY Qualifiers: DVT location: lower extremity Laterality: left Chronicity: chronic (3) Hyponatremia Assessment/Plan: sodium is improving MAYBE DUE TO DIURETIC Code(s): E87.1 - HYPO-OSMOLALITY AND HYPONATREMIA (4) Uncontrolled diabetes mellitus Assessment/Plan: endo consult noted insulin increased bgm hga1c 9.3 nuerontin Code(s): E11.65 - TYPE 2 DIABETES MELLITUS WITH HYPERGLYCEMIA Qualifiers: Diabetes mellitus type: type 2 Diabetes mellitus complication status: with neurologic complications Diabetes mellitus complication detail: with unspecified neuropathy (5) Hyperlipidemia Code(s): E78.5 - HYPERLIPIDEMIA, UNSPECIFIED Qualifiers: Hyperlipidemia type: mixed hyperlipidemia Qualified Code(s): E78.2 - Mixed hyperlipidemia (6) Hypertension Code(s): I10 - ESSENTIAL (PRIMARY) HYPERTENSION Qualifiers: Hypertension type: essential hypertension Qualified Code(s): I10 - Essential (primary) hypertension (7) Pressure ulcer Assessment/Plan: silvadene prostat and vitamin c Code(s): L89.90 - PRESSURE ULCER OF UNSPECIFIED SITE, UNSPECIFIED STAGE Assessment/Plan possible dc in am if labs are better
[2016-03-14] MEDS ORDERED: PT OWN MED DRAWER 7, Y5N ONE ×3 (09:38→20:46)
[2016-03-14] MEDS: amLODIPine BESYLATE 5 MG TABLET (FP) PO SCH (10:58)
[2016-03-14] MEDS: AMINO ACIDS/PROTEIN HYDROLYS SUGAR-FREE 30 ML PACKET PO SCH ×2 (10:58→17:13)
[2016-03-14] MEDS: OMEGA-3 ACID ETHYL ESTERS (FATTY-ACIDS) 1 GM CAPSULE (FP) PO SCH ×2 (10:58→21:41)
[2016-03-14] MEDS: ASCORBIC ACID 500 MG TABLET (FP) PO SCH (10:59)
[2016-03-14] MEDS: NEBIVOLOL 5 MG TABLET (FP) PO SCH (10:59)
[2016-03-14] MEDS: VALSARTAN 160 MG TABLET (UD) PO SCH (10:59)
[2016-03-14] MEDS: PANTOPRAZOLE 40 MG TABLET (FP) PO SCH (10:59)
[2016-03-14] MEDS: ASPIRIN 81 MG CHEWABLE TABLETS PO SCH (11:00)
[2016-03-14] MEDS: THIAMINE HCL 100 MG TABLET (FP) PO SCH (11:00)
[2016-03-14] MEDS: HEPARIN NA (PORCINE) 5,000 UNITS/ML 1ML VIAL SQ SCH ×2 (11:01→21:40)
[2016-03-14] MEDS: AMMONIUM LACTATE 12% LOTION 225 GM BOTTLE TP SCH ×2 (11:01→21:37)
[2016-03-14] MEDS: GABAPENTIN 100 MG CAPSULE (FP) PO SCH ×2 (11:01→21:42)
[2016-03-14] MEDS: LIDOCAINE 5% TOPICAL PATCH TP SCH (11:01)
[2016-03-14] MEDS: SILVER SULFADIAZINE 1% TOP CREAM 50 GM JAR TP SCH ×2 (11:02→21:36)
[2016-03-14] MEDS: NYSTATIN POWDER 100,000 UNITS/GM - 15 GM TOPICAL POWDER TP SCH ×2 (11:02→21:37)
[2016-03-14] MEDS: FENOFIBRIC ACID 45 MG CAP PO SCH (11:02)
[2016-03-14 11:22] LABS: URINE APPEARANCE CLEAR; URINE BILIRUBIN NEGATIVE (NEGATIVE); URINE COLOR LT. YELLOW; URINE GLUCOSE (UA) NEGATIVE (NEGATIVE); URINE KETONE NEGATIVE (NEGATIVE); URINE PROTEIN NEGATIVE (NEGATIVE); URINE UROBILINOGEN 0.2 E.U/dl E.U./dl (0.2-1.0)
[2016-03-14 11:25] LABS: URINE BLOOD TRACE (NEGATIVE); URINE LEUK ESTERASE 3+ (NEGATIVE); URINE NITRITE POSITIVE (NEGATIVE)
[2016-03-14 11:39] LABS: URINE BACTERIA MANY /hpf (NONE SEEN); URINE HYALINE CAST 3 /lpf; URINE MUCUS RARE; URINE RBC 4 /hpf (0-3); URINE WBC 140 /hpf (3-5); YEAST FEW
[2016-03-14] MEDS ORDERED: INSULIN (NOVOLOG) ASPART 100 UNITS/ML 10ML VIAL ONE (11:45)
[2016-03-14] MEDS: SODIUM CHLORIDE 1 GM TABLET PO SCH ×2 (12:03→21:43)
--- NOTE | 2016-03-14 13:15 | PN ---
Progress Note (short form) - Note Progress Note: Renal Follow up for CKD and Hyponatremia Pt seen and examined at the bedside no complaints Vital Signs Temperature 97.9 F 03/14/16 07:03 Pulse Rate 73 03/14/16 07:03 Respiratory Rate 20 03/14/16 07:03 Blood Pressure 136/64 03/14/16 07:03 O2 Sat by Pulse Oximetry (%) 100 03/13/16 21:00 Intake & Output 03/11/16 03/12/16 03/13/16 03/14/16 23:59 23:59 23:59 23:59 Intake Total 1660 730 Balance 1660 730 Weight 189 lb 195 lb 9.6 oz Gen: NAD, awake and alert CVS: RRR Lungs: CTA Abd: soft NT/ND Ext: No edema, clubbing or cyanosis CBC, BMP 03/14/16 06:20 03/14/16 06:20 Current Medications Acetaminophen (Tylenol -) 650 mg PO Q6H PRN PRN Reason: PAIN Amino Acids (Prostat Sugar-Free Packet -) 30 ml PO BID@0800,1730 [facility] Last Admin: 03/14/16 10:58 Dose: 30 ml Amlodipine Besylate (Norvasc -) 5 mg PO DAILY [facility] Last Admin: 03/14/16 10:58 Dose: 5 mg Ascorbic Acid (Vitamin C -) 500 mg PO DAILY [facility] Last Admin: 03/14/16 10:59 Dose: 500 mg Aspirin (Asa -) 81 mg PO DAILY [facility] Last Admin: 03/14/16 11:00 Dose: 81 mg Atorvastatin Calcium (Lipitor -) 10 mg PO HS [facility] Last Admin: 03/13/16 22:31 Dose: 10 mg Fenofibric Acid (Trilipix -) 45 mg PO DAILY [facility] Last Admin: 03/14/16 11:02 Dose: 45 mg Gabapentin (Neurontin -) 100 mg PO BID [facility] Last Admin: 03/14/16 11:01 Dose: 100 mg Heparin Sodium (Porcine) (Heparin -) 5,000 unit SQ BID [facility] Last Admin: 03/14/16 11:01 Dose: 5,000 unit Insulin Aspart (Novolog Vial Sliding Scale -) 1 vial SQ ACHS [facility] PRN Reason: Protocol Last Admin: 03/14/16 12:03 Dose: 6 units Insulin Detemir (Levemir Vial) 30 units SQ AM [facility] Last Admin: 03/14/16 05:59 Dose: 30 units Lactic Acid (Lac-Hydrin 12) 1 applic TP BID [facility] Last Admin: 03/14/16 11:01 Dose: 1 applic Lidocaine (Lidoderm Patch -) 1 patch TP DAILY [facility] Last Admin: 03/14/16 11:01 Dose: Not Given Nebivolol (Bystolic -) 5 mg PO DAILY [facility] Last Admin: 03/14/16 10:59 Dose: 5 mg Nystatin (Nystop Powder -) 1 applic TP BID [facility] Last Admin: 03/14/16 11:02 Dose: 1 applic Exgiy-9-Bmga Ethyl Esters (Lovaza -) 2 gm PO BID [facility] Last Admin: 03/14/16 10:58 Dose: 2 gm Pantoprazole Sodium (Protonix -) 40 mg PO DAILY [facility] Last Admin: 03/14/16 10:59 Dose: 40 mg Polyethylene Glycol (Miralax (For Daily Use) -) 17 gm PO DAILY [facility] Sulfadiazine (Silvadene -) 1 applic TP BID [facility] Last Admin: 03/14/16 11:02 Dose: 1 applic Sodium Chloride (Sodium Chloride Tablet -) 1 gm PO BID [facility] Last Admin: 03/14/16 12:03 Dose: 1 gm Thiamine HCl (Vitamin B1 -) 100 mg PO DAILY [facility] Last Admin: 03/14/16 11:00 Dose: 100 mg A/P 85 year old woman with PMhx of DVT, Hypertension, HLD, DM, Dementia who is presenting to the ED for elevated blood glucose and found to have Na of 129 and Cr of 1.6. #TK on CKD Cr bennett to 2.3 from 1.6 hold ARB and Lasix Check repeat urine studies trend BUN/Cr no indication for [employer] Dose all meds for Cr Cl less then 20 #Hyponatremia in setting of CKD Unlikely SIADH given CKD pt is a big water drinker serum na low likely due to excessive water intake in setting of diminished renal function advised to restrict free water to 1.5L daily Trend Chelsea Abreu DO
[2016-03-14] MEDS: ATORVASTATIN CA 10 MG TABLET (FP) PO SCH (21:41)
--- NOTE | 2016-03-15 00:43 | PN ---
Progress Note, Physician Chief Complaint: resting comfortable denies discomfort,sugars are higher with improving appetite History of Present Illness: iddm,ckd,hyponatremia,volume excess,likely fluid balance always thirsty, - Current Medication List Current Medications: Active Medications Acetaminophen (Tylenol -) 650 mg PO Q6H PRN PRN Reason: PAIN Amino Acids (Prostat Sugar-Free Packet -) 30 ml PO BID@0800,1730 [facility] Last Admin: 03/14/16 17:13 Dose: 30 ml Amlodipine Besylate (Norvasc -) 5 mg PO DAILY [facility] Last Admin: 03/14/16 10:58 Dose: 5 mg Ascorbic Acid (Vitamin C -) 500 mg PO DAILY [facility] Last Admin: 03/14/16 10:59 Dose: 500 mg Aspirin (Asa -) 81 mg PO DAILY [facility] Last Admin: 03/14/16 11:00 Dose: 81 mg Atorvastatin Calcium (Lipitor -) 10 mg PO HS [facility] Last Admin: 03/14/16 21:41 Dose: 10 mg Fenofibric Acid (Trilipix -) 45 mg PO DAILY [facility] Last Admin: 03/14/16 11:02 Dose: 45 mg Gabapentin (Neurontin -) 100 mg PO BID [facility] Last Admin: 03/14/16 21:42 Dose: 100 mg Heparin Sodium (Porcine) (Heparin -) 5,000 unit SQ BID [facility] Last Admin: 03/14/16 21:40 Dose: 5,000 unit Insulin Aspart (Novolog Vial Sliding Scale -) 1 vial SQ ACHS [facility] PRN Reason: Protocol Last Admin: 03/14/16 21:42 Dose: 6 units Insulin Detemir (Levemir Vial) 30 units SQ AM [facility] Last Admin: 03/14/16 05:59 Dose: 30 units Lactic Acid (Lac-Hydrin 12) 1 applic TP BID [facility] Last Admin: 03/14/16 21:37 Dose: 1 applic Lidocaine (Lidoderm Patch -) 1 patch TP DAILY [facility] Last Admin: 03/14/16 11:01 Dose: Not Given Nebivolol (Bystolic -) 5 mg PO DAILY [facility] Last Admin: 03/14/16 10:59 Dose: 5 mg Nystatin (Nystop Powder -) 1 applic TP BID [facility] Last Admin: 03/14/16 21:37 Dose: 1 applic Icjoi-1-Jbjk Ethyl Esters (Lovaza -) 2 gm PO BID [facility] Last Admin: 03/14/16 21:41 Dose: 2 gm Pantoprazole Sodium (Protonix -) 40 mg PO DAILY [facility] Last Admin: 03/14/16 10:59 Dose: 40 mg Polyethylene Glycol (Miralax (For Daily Use) -) 17 gm PO DAILY [facility] Sulfadiazine (Silvadene -) 1 applic TP BID [facility] Last Admin: 03/14/16 21:36 Dose: 1 applic Sodium Chloride (Sodium Chloride Tablet -) 1 gm PO BID [facility] Last Admin: 03/14/16 21:43 Dose: 1 gm Thiamine HCl (Vitamin B1 -) 100 mg PO DAILY [facility] Last Admin: 03/14/16 11:00 Dose: 100 mg - Objective Vital Signs: Vital Signs Temperature 98 F 03/14/16 22:00 Pulse Rate 79 03/14/16 22:00 Respiratory Rate 18 03/14/16 22:00 Blood Pressure 123/61 03/14/16 22:00 O2 Sat by Pulse Oximetry (%) 91 L 03/14/16 21:00 Constitutional: Yes: Well Nourished Eyes: Yes: EOM Intact HENT: Yes: Normocephalic Neck: Yes: Trachea Midline Cardiovascular: Yes: Regular Rate and Rhythm Respiratory: Yes: CTA Bilaterally Gastrointestinal: Yes: WNL ...Rectal Exam: Yes: Deferred Genitourinary: Yes: WNL Breast(s): Yes: WNL Musculoskeletal: Yes: WNL Extremities: Yes: WNL Edema: No Neurological: Yes: Alert, Oriented Labs: CBC, BMP 03/14/16 06:20 03/14/16 06:20 INR, PTT INR 1.45 (0.82-1.09) H 03/12/16 10:05 Problem List - Problems (1) Chronic kidney disease (CKD) Code(s): N18.9 - CHRONIC KIDNEY DISEASE, UNSPECIFIED Qualifiers: Chronic kidney disease stage: stage 1 Qualified Code(s): N18.1 - Chronic kidney disease, stage 1 (2) Hyponatremia Code(s): E87.1 - HYPO-OSMOLALITY AND HYPONATREMIA (3) Uncontrolled diabetes mellitus Code(s): E11.65 - TYPE 2 DIABETES MELLITUS WITH HYPERGLYCEMIA Qualifiers: Diabetes mellitus type: type 2 Diabetes mellitus complication status: with neurologic complications Diabetes mellitus complication detail: with unspecified neuropathy (4) Back pain Code(s): M54.9 - DORSALGIA, UNSPECIFIED Assessment/Plan iddm hyperglycemia hyponatremia dilutional likely siadh ckd Current Active Problems Chest pain (Acute) Chronic kidney disease (CKD) (Acute) DVT (deep venous thrombosis) (Acute) Dementia (Acute) Diastolic dysfunction without heart failure (Acute) Hyponatremia (Acute) Pressure ulcer (Acute) Uncontrolled diabetes mellitus (Acute) Abnormal Lab Results 03/14/16 03/14/16 03/14/16 06:20 06:20 10:15 MCV 78.1 L MPV 6.8 L Monocytes % 10.8 H Eosinophils % 4.7 H Sodium 129 L Chloride 93 L BUN 36 H D Creatinine 2.3 H D Random Glucose 166 H D Albumin 3.2 L Urine Blood Trace H Ur Leukocyte Esterase 3+ H Laboratory Tests 03/13/16 03/14/16 03/14/16 22:39 05:57 06:20 Sodium 129 L Potassium 4.7 Chloride 93 L Carbon Dioxide 26 Anion Gap 10 BUN 36 H D POC Glucometer 245 181 Calcium 9.0 03/14/16 03/14/16 03/14/16 12:02 17:10 21:34 Sodium Potassium Chloride Carbon Dioxide Anion Gap BUN POC Glucometer 270 221 297 Calcium plan : dc lipitor ckd increase levemir 45 units am dc trilipix
[2016-03-15 06:21] LABS: URINE APPEARANCE CLEAR; URINE BILIRUBIN NEGATIVE (NEGATIVE); URINE BLOOD NEGATIVE (NEGATIVE); URINE COLOR YELLOW; URINE GLUCOSE (UA) NEGATIVE (NEGATIVE); URINE KETONE NEGATIVE (NEGATIVE); URINE LEUK ESTERASE 2+ (NEGATIVE); URINE NITRITE NEGATIVE (NEGATIVE); URINE PROTEIN NEGATIVE (NEGATIVE); URINE UROBILINOGEN 0.2 E.U/dl E.U./dl (0.2-1.0)
[2016-03-15 06:25] LABS: URINE BACTERIA MANY /hpf (NONE SEEN); URINE RBC 2 /hpf (0-3); URINE WBC 29 /hpf (3-5)
[2016-03-15] MEDS: INSULIN SLIDING SCALE (NOVOLOG) 1 VIAL SQ SCH ×4 (06:46→22:29)
[2016-03-15] MEDS: INSULIN DETEMIR 100 UNITS/ML MDV SQ SCH (06:47)
[2016-03-15] MEDS ORDERED: INSULIN (NOVOLOG) ASPART 100 UNITS/ML 10ML VIAL ONE (07:08)
[2016-03-15 08:27] LABS: ALBUMIN 3.3 g/dl (3.4-5.0); CALCIUM 9.4 mg/dL (8.5-10.1); CREATININE 2.5 mg/dL (0.55-1.02)
[2016-03-15 08:34] LABS: BILIRUBIN,TOTAL 0.3 mg/dL (0.2-1.0); TOT PROT 6.9 g/dl (6.4-8.2)
--- NOTE | 2016-03-15 08:39 | PN ---
Progress Note, Physician History of Present Illness: FEELS BETTER - Current Medication List Current Medications: Active Medications Acetaminophen (Tylenol -) 650 mg PO Q6H PRN PRN Reason: PAIN Amino Acids (Prostat Sugar-Free Packet -) 30 ml PO BID@0800,1730 [facility] Last Admin: 03/14/16 17:13 Dose: 30 ml Amlodipine Besylate (Norvasc -) 5 mg PO DAILY [facility] Last Admin: 03/14/16 10:58 Dose: 5 mg Ascorbic Acid (Vitamin C -) 500 mg PO DAILY [facility] Last Admin: 03/14/16 10:59 Dose: 500 mg Aspirin (Asa -) 81 mg PO DAILY [facility] Last Admin: 03/14/16 11:00 Dose: 81 mg Ciprofloxacin (Cipro (Restricted To Id)) 250 mg PO BID [facility] Gabapentin (Neurontin -) 100 mg PO BID [facility] Last Admin: 03/14/16 21:42 Dose: 100 mg Heparin Sodium (Porcine) (Heparin -) 5,000 unit SQ BID [facility] Last Admin: 03/14/16 21:40 Dose: 5,000 unit Insulin Aspart (Novolog Vial Sliding Scale -) 1 vial SQ ACHS [facility] PRN Reason: Protocol Last Admin: 03/15/16 06:46 Dose: 4 units Insulin Detemir (Levemir Vial) 30 units SQ AM [facility] Last Admin: 03/15/16 06:47 Dose: 30 units Lactic Acid (Lac-Hydrin 12) 1 applic TP BID [facility] Last Admin: 03/14/16 21:37 Dose: 1 applic Lidocaine (Lidoderm Patch -) 1 patch TP DAILY [facility] Last Admin: 03/14/16 11:01 Dose: Not Given Nebivolol (Bystolic -) 5 mg PO DAILY [facility] Last Admin: 03/14/16 10:59 Dose: 5 mg Nystatin (Nystop Powder -) 1 applic TP BID [facility] Last Admin: 03/14/16 21:37 Dose: 1 applic [id number]-[id number] Ethyl Esters (Lovaza -) 2 gm PO BID [facility] Last Admin: 03/14/16 21:41 Dose: 2 gm Pantoprazole Sodium (Protonix -) 40 mg PO DAILY [facility] Last Admin: 03/14/16 10:59 Dose: 40 mg Polyethylene Glycol (Miralax (For Daily Use) -) 17 gm PO DAILY PRN Silver Sulfadiazine (Silvadene -) 1 applic TP BID [facility] Last Admin: 03/14/16 21:36 Dose: 1 applic Sodium Chloride (Sodium Chloride Tablet -) 1 gm PO BID [facility] Last Admin: 03/14/16 21:43 Dose: 1 gm Thiamine HCl (Vitamin B1 -) 100 mg PO DAILY [facility] Last Admin: 03/14/16 11:00 Dose: 100 mg - Objective Vital Signs: Vital Signs Temperature 97.6 F 03/15/16 07:20 Pulse Rate 71 03/15/16 07:20 Respiratory Rate 20 03/15/16 07:20 Blood Pressure 100/53 03/15/16 07:20 O2 Sat by Pulse Oximetry (%) 91 L 03/14/16 21:00 Cardiovascular: Yes: Regular Rate and Rhythm Respiratory: Yes: Regular, CTA Bilaterally Gastrointestinal: Yes: Normal Bowel Sounds, Soft Labs: CBC, BMP 03/14/16 06:20 INR, PTT INR 1.45 (0.82-1.09) H 03/12/16 10:05 Assessment/Plan - Problems (1) Chronic kidney disease (CKD) Assessment/Plan: renal consult noted renal sono right kidney slightly smaller will need outpatient renal fu RENAL FUNCTION WORSENING--HOLD LASIX--CXR--BLADDER SCAN Code(s): N18.9 - CHRONIC KIDNEY DISEASE, UNSPECIFIED Qualifiers: Chronic kidney disease stage: stage 1 Qualified Code(s): N18.1 - Chronic kidney disease, stage 1 (2) DVT (deep venous thrombosis) Assessment/Plan: heparin sub q Coumadin was stopped by pmd Code(s): I82.409 - ACUTE EMBOLISM AND THOMBOS UNSP DEEP VN UNSP LOWER EXTREMITY Qualifiers: DVT location: lower extremity Laterality: left Chronicity: chronic (3) Hyponatremia Assessment/Plan: sodium is improving MAYBE DUE TO DIURETIC Code(s): E87.1 - HYPO-OSMOLALITY AND HYPONATREMIA (4) Uncontrolled diabetes mellitus Assessment/Plan: endo consult noted insulin increased bgm hga1c 9.3 nuerontin Code(s): E11.65 - TYPE 2 DIABETES MELLITUS WITH HYPERGLYCEMIA Qualifiers: Diabetes mellitus type: type 2 Diabetes mellitus complication status: with neurologic complications Diabetes mellitus complication detail: with unspecified neuropathy (5) UTI URINE CULTURE POSITIVE START CIPRO Microbiology 03/14/16 10:15 Urine Culture - Preliminary Urine - Urine Clean Catch Lactose Fermenting Neg Bacilli Non Lactose Fermenting Gnb 03/12/16 14:45 Urine Culture - Final Urine - Urine Clean Catch Contaminated: Please Repeat (6) Hypertension Code(s): I10 - ESSENTIAL (PRIMARY) HYPERTENSION Qualifiers: Hypertension type: essential hypertension Qualified Code(s): I10 - Essential (primary) hypertension (7) Pressure ulcer Assessment/Plan: silvadene prostat and vitamin c Code(s): L89.90 - PRESSURE ULCER OF UNSPECIFIED SITE, UNSPECIFIED STAGE Assessment/Plan possible dc in am if labs are better
[2016-03-15] MEDS: AMINO ACIDS/PROTEIN HYDROLYS SUGAR-FREE 30 ML PACKET PO SCH ×2 (08:56→17:49)
[2016-03-15] MEDS: PANTOPRAZOLE 40 MG TABLET (FP) PO SCH (10:23)
[2016-03-15] MEDS: THIAMINE HCL 100 MG TABLET (FP) PO SCH (10:23)
[2016-03-15] MEDS: NEBIVOLOL 5 MG TABLET (FP) PO SCH (10:24)
[2016-03-15] MEDS: HEPARIN NA (PORCINE) 5,000 UNITS/ML 1ML VIAL SQ SCH ×2 (10:24→22:29)
[2016-03-15] MEDS: OMEGA-3 ACID ETHYL ESTERS (FATTY-ACIDS) 1 GM CAPSULE (FP) PO SCH ×2 (10:24→22:31)
[2016-03-15] MEDS: SODIUM CHLORIDE 1 GM TABLET PO SCH ×2 (10:24→22:29)
[2016-03-15] MEDS: ASPIRIN 81 MG CHEWABLE TABLETS PO SCH (10:24)
[2016-03-15] MEDS: ASCORBIC ACID 500 MG TABLET (FP) PO SCH (10:24)
[2016-03-15] MEDS: LEVOFLOXACIN 250 MG TABLET (FP) PO SCH (10:24)
[2016-03-15] MEDS: amLODIPine BESYLATE 5 MG TABLET (FP) PO SCH (10:24)
[2016-03-15] MEDS: LIDOCAINE 5% TOPICAL PATCH TP SCH (10:25)
[2016-03-15] MEDS: GABAPENTIN 100 MG CAPSULE (FP) PO SCH ×2 (10:25→22:29)
[2016-03-15] MEDS: NYSTATIN POWDER 100,000 UNITS/GM - 15 GM TOPICAL POWDER TP SCH ×2 (10:26→22:30)
[2016-03-15] MEDS: AMMONIUM LACTATE 12% LOTION 225 GM BOTTLE TP SCH ×2 (10:26→22:29)
[2016-03-15] MEDS: SILVER SULFADIAZINE 1% TOP CREAM 50 GM JAR TP SCH ×2 (10:27→22:30)
[2016-03-15] MEDS ORDERED: SODIUM CHLORIDE 500 ML IV STA (15:47)
--- NOTE | 2016-03-15 15:51 | PN ---
Progress Note (short form) - Note Progress Note: Renal Follow up for CKD and Hyponatremia Pt seen and examined at the bedside denies sob, chest pain, cough, fever, chills, N/V/D Vital Signs Temperature 98.2 F 03/15/16 15:18 Pulse Rate 80 03/15/16 15:18 Respiratory Rate 17 03/15/16 15:18 Blood Pressure 131/57 03/15/16 15:18 O2 Sat by Pulse Oximetry (%) 94 L 03/15/16 09:00 Intake & Output 03/12/16 03/13/16 03/14/16 03/15/16 23:59 23:59 23:59 23:59 Intake Total 1660 730 530 120 Balance 1660 730 530 120 Weight 195 lb 9.6 oz Gen: NAD, awake and alert CVS: RRR Lungs: CTA Abd: soft NT/ND Ext: No edema, clubbing or cyanosis CBC, BMP 03/14/16 06:20 03/15/16 06:45 Current Medications Acetaminophen (Tylenol -) 650 mg PO Q6H PRN PRN Reason: PAIN Amino Acids (Prostat Sugar-Free Packet -) 30 ml PO BID@0800,1730 [facility] Last Admin: 03/15/16 08:56 Dose: 30 ml Amlodipine Besylate (Norvasc -) 5 mg PO DAILY [facility] Last Admin: 03/15/16 10:24 Dose: 5 mg Ascorbic Acid (Vitamin C -) 500 mg PO DAILY [facility] Last Admin: 03/15/16 10:24 Dose: 500 mg Aspirin (Asa -) 81 mg PO DAILY [facility] Last Admin: 03/15/16 10:24 Dose: 81 mg Gabapentin (Neurontin -) 100 mg PO BID [facility] Last Admin: 03/15/16 10:25 Dose: 100 mg Heparin Sodium (Porcine) (Heparin -) 5,000 unit SQ BID [facility] Last Admin: 03/15/16 10:24 Dose: 5,000 unit Sodium Chloride (Normal Saline -) 500 mls @ 500 mls/hr IV ASDIR STA Stop: 03/15/16 16:46 Sodium Chloride (Normal Saline -) 1,000 mls @ 83 mls/hr IV ASDIR [facility] Insulin Aspart (Novolog Vial Sliding Scale -) 1 vial SQ ACHS [facility] PRN Reason: Protocol Last Admin: 01/12/17 12:02 Dose: 6 units Insulin Detemir (Levemir Vial) 30 units SQ AM [facility] Last Admin: 03/15/16 06:47 Dose: 30 units Lactic Acid (Lac-Hydrin 12) 1 applic TP BID [facility] Last Admin: 03/15/16 10:26 Dose: 1 applic Levofloxacin (Levaquin -) 250 mg PO DAILY@0600 [facility] Last Admin: 03/15/16 10:24 Dose: 250 mg Lidocaine (Lidoderm Patch -) 1 patch TP DAILY [facility] Last Admin: 03/15/16 10:25 Dose: Not Given Nebivolol (Bystolic -) 5 mg PO DAILY [facility] Last Admin: 03/15/16 10:24 Dose: 5 mg Nystatin (Nystop Powder -) 1 applic TP BID [facility] Last Admin: 03/15/16 10:26 Dose: 1 applic [id number]-[id number] Ethyl Esters (Lovaza -) 2 gm PO BID [facility] Last Admin: 03/15/16 10:24 Dose: 2 gm Pantoprazole Sodium (Protonix -) 40 mg PO DAILY [facility] Last Admin: 03/15/16 10:23 Dose: 40 mg Polyethylene Glycol (Miralax (For Daily Use) -) 17 gm PO DAILY PRN Silver Sulfadiazine (Silvadene -) 1 applic TP BID [facility] Last Admin: 03/15/16 10:27 Dose: 1 applic Sodium Chloride (Sodium Chloride Tablet -) 1 gm PO BID [facility] Last Admin: 03/15/16 10:24 Dose: 1 gm Thiamine HCl (Vitamin B1 -) 100 mg PO DAILY [facility] Last Admin: 03/15/16 10:23 Dose: 100 mg A/P 85 year old woman with PMhx of DVT, Hypertension, HLD, DM, Dementia who is presenting to the ED for elevated blood glucose and found to have Na of 129 and Cr of 1.6. #TK on CKD Renal function still down trending FeNa was 0.43% Start IVF: NS Bolus 500cc x1 and then 83cc per hour Trend BUN/cr holding ARB and Lasix at this time monitor volume status closely dose all meds for Cr Cl less then 20 #Hyponatremia in setting of CKD Unlikely SIADH given CKD pt is a big water drinker serum na low likely due to excessive water intake in setting of diminished renal function advised to restrict free water to 1.5L daily Alejandro Abreu DO
[2016-03-15] MEDS: SODIUM CHLORIDE 1,000 ML IV SCH (17:51)
[2016-03-16] MEDS: INSULIN DETEMIR 100 UNITS/ML MDV SQ SCH (06:13)
[2016-03-16] MEDS: LEVOFLOXACIN 250 MG TABLET (FP) PO SCH (06:14)
[2016-03-16] MEDS: INSULIN SLIDING SCALE (NOVOLOG) 1 VIAL SQ SCH ×4 (06:14→23:09)
[2016-03-16 08:42] LABS: CALCIUM 9.1 mg/dL (8.5-10.1); CREATININE 1.9 mg/dL (0.55-1.02); PHOSPHOROUS 3.4 mg/dL (2.5-4.9)
--- NOTE | 2016-03-16 10:23 | DS ---
Physical Examination Vital Signs: Vital Signs Temperature 98.7 F 03/16/16 06:30 Pulse Rate 72 03/16/16 06:30 Respiratory Rate 20 03/16/16 06:30 Blood Pressure 121/60 03/16/16 06:30 O2 Sat by Pulse Oximetry (%) 97 03/15/16 22:00 Cardiovascular: Yes: Regular Rate and Rhythm Respiratory: Yes: Regular, CTA Bilaterally Gastrointestinal: Yes: Normal Bowel Sounds, Soft. No: Tenderness Labs: CBC, BMP 03/14/16 06:20 03/16/16 07:00 Discharge Summary Reason For Visit: HYPONATERMIA CKD DIABETES MELLITIS Current Active Problems Chest pain (Acute) Chronic kidney disease (CKD) (Acute) DVT (deep venous thrombosis) (Acute) Dementia (Acute) Diastolic dysfunction without heart failure (Acute) Hyponatremia (Acute) Pressure ulcer (Acute) Uncontrolled diabetes mellitus (Acute) Hospital Course: Patient is an 85 year old female with significant medical hx of DVT, hypertension, hyperlipidemia, diabetes, and dementia who is presenting to the ED for abnormal labs. The patient is accompanied by family member who reports the patient has had high blood sugar the past few days measured as high as 320. The patient also recently saw Dr. Powell who reported she was hyponatremic. The patient complains of nausea and weakness; family member states she vomited a few times last week. The patient recently had biopsy done on a cell growth on the skin of her forehead that revealed cancer. Patient lives at home. PCP: Karson Powell MD History Source: Family Member Limitations to Obtaining History: Language Barrier - Past Medical History Cardiovascular: Yes: Deep Vein Thrombosis, HTN, Hyperlipdemia Dermatology: Yes: Other (skin cancer at forehead) Problems (1) Chronic kidney disease (CKD) Assessment/Plan: renal consult noted renal sono right kidney slightly smaller will need outpatient renal fu RENAL FUNCTION IMPROVING--HOLD LASIX-- Code(s): N18.9 - CHRONIC KIDNEY DISEASE, UNSPECIFIED Qualifiers: Chronic kidney disease stage: stage 1 Qualified Code(s): N18.1 - Chronic kidney disease, stage 1 (2) DVT (deep venous thrombosis) Assessment/Plan: heparin sub q Coumadin was stopped by pmd Code(s): I82.409 - ACUTE EMBOLISM AND THOMBOS UNSP DEEP VN UNSP LOWER EXTREMITY Qualifiers: DVT location: lower extremity Laterality: left Chronicity: chronic (3) Hyponatremia Assessment/Plan: sodium is improving MAYBE DUE TO DIURETIC Code(s): E87.1 - HYPO-OSMOLALITY AND HYPONATREMIA (4) Uncontrolled diabetes mellitus Assessment/Plan: endo consult noted insulin increased bgm hga1c 9.3 nuerontin Code(s): E11.65 - TYPE 2 DIABETES MELLITUS WITH HYPERGLYCEMIA Qualifiers: Diabetes mellitus type: type 2 Diabetes mellitus complication status: with neurologic complications Diabetes mellitus complication detail: with unspecified neuropathy (5) UTI URINE CULTURE POSITIVE ON CIPRO Microbiology 03/14/16 10:15 Urine Culture - Final Urine - Urine Clean Catch Escherichia Coli Pseudomonas Aeruginosa E COLI RESISTENT TO CIPRO ID (6) Hypertension Code(s): I10 - ESSENTIAL (PRIMARY) HYPERTENSION Qualifiers: Hypertension type: essential hypertension Qualified Code(s): I10 - Essential (primary) hypertension (7) Pressure ulcer Assessment/Plan: silvadene prostat and vitamin c Code(s): L89.90 - PRESSURE ULCER OF UNSPECIFIED SITE, UNSPECIFIED STAGE Assessment/Plan POSSIBLE DC PENDING ID CONSULT Condition: Stable - Instructions Diet, Activity, Other Instructions: BMP Q WEEK CBC FOLLOW UP UA AND CULTURE Referrals: Karson Powell MD [Primary Care Provider] - Disposition: LONG TERM FACILITY - Home Medications Comprehensive Discharge Medication List: Ambulatory Orders Acetaminophen [Mapap] 500 mg PO PRN PRN 03/11/16 Amlodipine/Valsartan [Exforge 5-320 mg Tablet] 1 tab PO DAILY 03/11/16 Ammonium Lactate Cream [Lac-Hydrin] 1 applic TP BID 03/11/16 Aspirin [ASA -] 81 mg PO DAILY 03/11/16 Atorvastatin Ca [Lipitor] 10 mg PO DAILY 03/11/16 Dexlansoprazole [Dexilant] 60 mg PO DAILY 03/11/16 Diclofenac Sodium [Voltaren] 100 gm TP BID 03/11/16 Fenofibric Acid [Trilipix -] 45 mg PO DAILY 03/11/16 Furosemide [Lasix] 20 mg PO DAILY 03/11/16 Gabapentin [Neurontin] 100 mg PO BID 03/11/16 Glipizide [Glipizide ER] 10 mg PO BID 03/11/16 Icosapent Ethyl [Vascepa] 2 gm PO BID 03/11/16 Insulin Aspart [Novolog] 0 unit SQ DAILY 03/11/16 Insulin Glargine,Hum.rec.anlog [Nimco Galindo] 35 unit SQ DAILY 03/11/16 Linaclotide [Linzess] 145 mcg PO DAILY 03/11/16 Nebivolol HCl [Bystolic] 5 mg PO DAILY 03/11/16 Nystatin Powder [Nystop Topical Powder -] 60 gm TP BID 03/11/16 Thiamine HCl [B-1] 100 mg PO DAILY 03/11/16
[2016-03-16] MEDS ORDERED: PT OWN MED DRAWER 7, Y5N ONE ×2 (10:56→17:47)
[2016-03-16] MEDS: AMINO ACIDS/PROTEIN HYDROLYS SUGAR-FREE 30 ML PACKET PO SCH ×2 (11:07→17:38)
[2016-03-16] MEDS: THIAMINE HCL 100 MG TABLET (FP) PO SCH (11:08)
[2016-03-16] MEDS: SODIUM CHLORIDE 1 GM TABLET PO SCH (11:08)
[2016-03-16] MEDS: ASPIRIN 81 MG CHEWABLE TABLETS PO SCH (11:09)
[2016-03-16] MEDS: PANTOPRAZOLE 40 MG TABLET (FP) PO SCH (11:09)
[2016-03-16] MEDS: GABAPENTIN 100 MG CAPSULE (FP) PO SCH ×2 (11:09→23:10)
[2016-03-16] MEDS: amLODIPine BESYLATE 5 MG TABLET (FP) PO SCH (11:09)
[2016-03-16] MEDS: OMEGA-3 ACID ETHYL ESTERS (FATTY-ACIDS) 1 GM CAPSULE (FP) PO SCH ×2 (11:10→23:10)
[2016-03-16] MEDS: HEPARIN NA (PORCINE) 5,000 UNITS/ML 1ML VIAL SQ SCH ×2 (11:10→23:09)
[2016-03-16] MEDS: ASCORBIC ACID 500 MG TABLET (FP) PO SCH (11:10)
[2016-03-16] MEDS: LIDOCAINE 5% TOPICAL PATCH TP SCH (11:11)
[2016-03-16] MEDS: NYSTATIN POWDER 100,000 UNITS/GM - 15 GM TOPICAL POWDER TP SCH ×2 (11:12→23:11)
[2016-03-16] MEDS: SILVER SULFADIAZINE 1% TOP CREAM 50 GM JAR TP SCH ×2 (11:12→23:11)
[2016-03-16] MEDS: AMMONIUM LACTATE 12% LOTION 225 GM BOTTLE TP SCH ×2 (11:12→23:11)
[2016-03-16] MEDS: NEBIVOLOL 5 MG TABLET (FP) PO SCH (11:12)
[2016-03-16] MEDS ORDERED: INSULIN (NOVOLOG) ASPART 100 UNITS/ML 10ML VIAL ONE (11:33)
--- NOTE | 2016-03-16 12:02 | PN ---
Progress Note (short form) - Note Progress Note: ID Consult dictated Recurrent E. coli UTI Pseudomonas in urine likely colonizer Azotemia Diabetes mellitus Advise Keflex 500mg po bid x7d OK for outpatient treatment
--- NOTE | 2016-03-16 12:23 | CONS ---
DATE OF CONSULTATION: 03/16/2016 REFERRING PHYSICIAN: Vandana Emery MD HISTORY OF PRESENT ILLNESS: The patient is an 85-year-old woman with past medical history of chronic kidney disease, diabetes, deep vein thrombosis, hypertension who was admitted with weakness and hyponatremia. The patient developed increasing weakness and, as of March 11, she presented to the emergency room with a sodium of 127. BUN was slightly elevated at 20, creatinine 1.4. The patient had a normal total protein on admission, 7.8, and albumin of 3.8. CBC was normal with WBCs high normal at 9.6, hemoglobin 11.9, platelet count not reportable on March 11. The patient had follow up blood work, and her sodium had slightly improved but her kidney function worsened. As of March 15, BUN elevated at 52, creatinine 2.5, sodium to 129, albumin low at 3.3. The patient was started on IV fluids and has noted improvement in BUN to 48, creatinine 1.9 still above her baseline. Sodium improved to 134. CBC was last done on March 14. WBCs 6.2, hemoglobin 10.7, platelet count 329. The patient was evaluated by physical therapy and was limited with her mobility only ambulating a few feet with minimal assist of 2 using a walker, and she was [id number] assist for transfers. The patient herself has no complaints other than generalized weakness. PAST MEDICAL HISTORY: As above. There is also mention of mild dementia, hypertension, hyperlipidemia, diabetes, chronic, mild back pain. No complaints of arthritic pain. PAST SURGICAL HISTORY: As above. SOCIAL HISTORY: Lives with a daughter in an apartment with an elevator. Premorbidly she could ambulate with assistance using a rolling walker and required assistance from a homemaker, which she has 6 days a week from 9 a.m. to 6 p.m. Current function as above. MEDICATIONS: Extensive and reviewed. ALLERGIES: MORPHINE. REVIEW OF SYSTEMS: She denies any headache, any lightheadedness, dizziness, blurry vision, double vision, chest pain, shortness of breath, dyspnea on exertion, cough, abdominal discomfort, bowel or bladder complaints, numbness or tingling in the upper and lower extremities. Mild back pain but no other joint arthralgias. No skin rash. No significant weight loss, weight gain, fever, or chills. PHYSICAL EXAMINATION: General: An overweight woman seen lying in bed. She is awake and cooperative. HEENT: She is normocephalic and atraumatic. Extraocular muscles are intact. She has no other facial weakness. Neck: Supple. Extremities: Without any pitting edema or calf tenderness. Skin: Without any heel breakdown. No rash. No discoloration. Neuromuscular: Awake and alert. She is close with the date. Cranial nerves 2-12 appear grossly intact. Fairly good strength and range in the upper extremities with some mild shoulder girdle weakness. In the lower extremities, she has weakness in the hip girdle at 2/5-3/5, knee extensors 3+/5, dorsiflexion and plantar flexion 5/5. Normal sensation to pinprick in the upper and lower extremities. Symmetric reflexes. Downgoing toes. OVERALL IMPRESSION: 1. Deficits in mobility, activities of daily living multifactorial. 2. Deconditioning. 3. Hyponatremia, improving. 4. Acute on chronic kidney disease, improving with intravenous fluids. 5. History of diabetes and elevated blood sugars. 6. The patient is overweight. 7. History of a left lower extremity deep vein thrombosis and elevated risk for further deep vein thrombosis. 8. Reported mild dementia. 9. History of hypertension. 10. History of hyperlipidemia. 11. Mild back discomfort. PLAN/SUGGESTION: 1. Discuss with case management. 2. Continue physical therapy while the patient is in the hospital. 3. Renal follow up regarding IV fluids and whether the patient can be discharged. 4. Out of bed to chair. 5. Agree with subcutaneous heparin for DVT prophylaxis especially in light of her history of a DVT. 6. Safety fall precaution. 7. Cardiac precaution. 8. Follow up chemistry if the patient remains in the hospital. 9. Discussed discharge planning with family. 10. Discharge to a fdc facility once she is medically stable. I thank you for this referral. JOAQUIN AYON M.D. CRUZ/[id number]
[2016-03-16] MEDS: CEPHALEXIN MONOHYDRATE 500 MG CAPSULE (UD) PO SCH ×2 (14:57→23:09)
--- NOTE | 2016-03-16 15:41 | PN ---
Progress Note (short form) - Note Progress Note: Renal Follow up for CKD and Hyponatremia Pt seen and examined at the bedside no acute complaints Vital Signs Temperature 98.0 F 03/16/16 10:00 Pulse Rate 74 03/16/16 10:00 Respiratory Rate 18 03/16/16 10:00 Blood Pressure 153/73 03/16/16 10:00 O2 Sat by Pulse Oximetry (%) 97 03/16/16 09:00 Intake & Output 03/13/16 03/14/16 03/15/16 03/16/16 23:59 23:59 23:59 23:59 Intake Total 212 726 3720 664 Balance 002 787 2031 664 Gen: NAD, awake and alert CVS: RRR Lungs: CTA Abd: soft NT/ND Ext: No edema, clubbing or cyanosis CBC, BMP 03/14/16 06:20 03/16/16 07:00 Current Medications Acetaminophen (Tylenol -) 650 mg PO Q6H PRN PRN Reason: PAIN Amino Acids (Prostat Sugar-Free Packet -) 30 ml PO BID@0800,1730 [facility] Last Admin: 03/16/16 11:07 Dose: 30 ml Amlodipine Besylate (Norvasc -) 5 mg PO DAILY [facility] Last Admin: 03/16/16 11:09 Dose: 5 mg Ascorbic Acid (Vitamin C -) 500 mg PO DAILY [facility] Last Admin: 03/16/16 11:10 Dose: 500 mg Aspirin (Asa -) 81 mg PO DAILY [facility] Last Admin: 03/16/16 11:09 Dose: 81 mg Cephalexin HCl (Keflex -) 500 mg PO BID [facility] Last Admin: 03/16/16 14:57 Dose: 500 mg Gabapentin (Neurontin -) 100 mg PO BID [facility] Last Admin: 03/16/16 11:09 Dose: 100 mg Heparin Sodium (Porcine) (Heparin -) 5,000 unit SQ BID [facility] Last Admin: 03/16/16 11:10 Dose: 5,000 unit Sodium Chloride (Normal Saline -) 1,000 mls @ 83 mls/hr IV ASDIR [facility] Last Admin: 03/15/16 17:51 Dose: 83 mls/hr Insulin Aspart (Novolog Vial Sliding Scale -) 1 vial SQ ACHS [facility] PRN Reason: Protocol Last Admin: 03/16/16 11:34 Dose: 2 units Insulin Detemir (Levemir Vial) 35 units SQ AM [facility] Lactic Acid (Lac-Hydrin 12) 1 applic TP BID [facility] Last Admin: 03/16/16 11:12 Dose: 1 applic Lidocaine (Lidoderm Patch -) 1 patch TP DAILY [facility] Last Admin: 03/16/16 11:11 Dose: Not Given Nebivolol (Bystolic -) 5 mg PO DAILY [facility] Last Admin: 03/16/16 11:12 Dose: 5 mg Nystatin (Nystop Powder -) 1 applic TP BID [facility] Last Admin: 03/16/16 11:12 Dose: 1 applic Iagut-5-Wmlk Ethyl Esters (Lovaza -) 2 gm PO BID [facility] Last Admin: 03/16/16 11:10 Dose: 2 gm Pantoprazole Sodium (Protonix -) 40 mg PO DAILY [facility] Last Admin: 03/16/16 11:09 Dose: 40 mg Polyethylene Glycol (Miralax (For Daily Use) -) 17 gm PO DAILY PRN Silver Sulfadiazine (Silvadene -) 1 applic TP BID [facility] Last Admin: 03/16/16 11:12 Dose: 1 applic Thiamine HCl (Vitamin B1 -) 100 mg PO DAILY [facility] Last Admin: 03/16/16 11:08 Dose: 100 mg A/P 85 year old woman with PMhx of DVT, Hypertension, HLD, DM, Dementia who is presenting to the ED for elevated blood glucose and found to have Na of 129 and Cr of 1.6. #TK on CKD Renal function improved today FeNa was 0.43% continue normal saline holding ARB and Lasix at this time monitor volume status closely dose all meds for Cr Cl less then 20 #Hyponatremia in setting of CKD Unlikely SIADH given CKD pt is a big water drinker serum na low likely due to excessive water intake in setting of diminished renal function advised to restrict free water to 1.5L daily Alejandro Abreu DO
[2016-03-16] MEDS: SODIUM CHLORIDE 1,000 ML IV SCH ×2 (17:34→23:28)
[2016-03-16] MEDS ORDERED: INSULIN (NOVOLOG MIX 70/30) 100 UNITS/ML MDV SQ ONE (17:44)
[2016-03-17] MEDS: INSULIN SLIDING SCALE (NOVOLOG) 1 VIAL SQ SCH ×4 (06:43→23:29)
[2016-03-17] MEDS ORDERED: INSULIN DETEMIR 100 UNITS/ML MDV SQ SCH ×2 (07:00→10:00)
[2016-03-17] MEDS: AMINO ACIDS/PROTEIN HYDROLYS SUGAR-FREE 30 ML PACKET PO SCH ×2 (08:56→17:09)
[2016-03-17] MEDS: CEPHALEXIN MONOHYDRATE 500 MG CAPSULE (UD) PO SCH ×2 (09:29→23:16)
[2016-03-17] MEDS: ASPIRIN 81 MG CHEWABLE TABLETS PO SCH (09:29)
[2016-03-17] MEDS: ASCORBIC ACID 500 MG TABLET (FP) PO SCH (09:29)
[2016-03-17] MEDS: PANTOPRAZOLE 40 MG TABLET (FP) PO SCH (09:29)
[2016-03-17] MEDS: amLODIPine BESYLATE 5 MG TABLET (FP) PO SCH (09:29)
[2016-03-17] MEDS: THIAMINE HCL 100 MG TABLET (FP) PO SCH (09:29)
[2016-03-17] MEDS: GABAPENTIN 100 MG CAPSULE (FP) PO SCH ×2 (09:30→23:16)
[2016-03-17] MEDS: LIDOCAINE 5% TOPICAL PATCH TP SCH (09:33)
[2016-03-17] MEDS: AMMONIUM LACTATE 12% LOTION 225 GM BOTTLE TP SCH ×2 (09:34→23:38)
[2016-03-17] MEDS: HEPARIN NA (PORCINE) 5,000 UNITS/ML 1ML VIAL SQ SCH ×2 (09:37→23:16)
[2016-03-17] MEDS: NYSTATIN POWDER 100,000 UNITS/GM - 15 GM TOPICAL POWDER TP SCH (09:45)
[2016-03-17] MEDS: SILVER SULFADIAZINE 1% TOP CREAM 50 GM JAR TP SCH (09:46)
[2016-03-17 10:19] LABS: CALCIUM 9.2 mg/dL (8.5-10.1); CREATININE 1.5 mg/dL (0.55-1.02); MAGNESIUM 1.9 mg/dL (1.8-2.4)
[2016-03-17] MEDS: NEBIVOLOL 5 MG TABLET (FP) PO SCH ×2 (10:38→14:33)
[2016-03-17] MEDS: OMEGA-3 ACID ETHYL ESTERS (FATTY-ACIDS) 1 GM CAPSULE (FP) PO SCH ×3 (10:39→23:14)
--- NOTE | 2016-03-17 12:23 | DS ---
Physical Examination Vital Signs: Vital Signs Temperature 97.2 F L 03/17/16 10:00 Pulse Rate 70 03/17/16 10:00 Respiratory Rate 18 03/17/16 10:00 Blood Pressure 140/71 03/17/16 10:00 O2 Sat by Pulse Oximetry (%) 96 03/16/16 22:00 Findings/Remarks: NO COMPLAINTS Cardiovascular: Yes: Regular Rate and Rhythm Respiratory: Yes: Regular, CTA Bilaterally Gastrointestinal: Yes: Normal Bowel Sounds, Soft Edema: No Labs: CBC, BMP 03/14/16 06:20 03/17/16 06:15 Discharge Summary Reason For Visit: HYPONATERMIA CKD DIABETES MELLITIS Current Active Problems Chest pain (Acute) Chronic kidney disease (CKD) (Acute) DVT (deep venous thrombosis) (Acute) Dementia (Acute) Diastolic dysfunction without heart failure (Acute) Hyponatremia (Acute) Pressure ulcer (Acute) Uncontrolled diabetes mellitus (Acute) Hospital Course: Patient is an 85 year old female with significant medical hx of DVT, hypertension, hyperlipidemia, diabetes, and dementia who is presenting to the ED for abnormal labs. The patient is accompanied by family member who reports the patient has had high blood sugar the past few days measured as high as 320. The patient also recently saw Dr. Powell who reported she was hyponatremic. The patient complains of nausea and weakness; family member states she vomited a few times last week. The patient recently had biopsy done on a cell growth on the skin of her forehead that revealed cancer. Patient lives at home. PCP: Karson Powell MD History Source: Family Member Limitations to Obtaining History: Language Barrier - Past Medical History Cardiovascular: Yes: Deep Vein Thrombosis, HTN, Hyperlipdemia Dermatology: Yes: Other (skin cancer at forehead) Problems (1) Chronic kidney disease (CKD) Assessment/Plan: renal consult noted renal sono right kidney slightly smaller will need outpatient renal fu RENAL FUNCTION IMPROVING--HOLD LASIX-- Code(s): N18.9 - CHRONIC KIDNEY DISEASE, UNSPECIFIED Qualifiers: Chronic kidney disease stage: stage 1 Qualified Code(s): N18.1 - Chronic kidney disease, stage 1 (2) DVT (deep venous thrombosis) Assessment/Plan: heparin sub q Coumadin was stopped by pmd Code(s): I82.409 - ACUTE EMBOLISM AND THOMBOS UNSP DEEP VN UNSP LOWER EXTREMITY Qualifiers: DVT location: lower extremity Laterality: left Chronicity: chronic (3) Hyponatremia Assessment/Plan: sodium is improving MAYBE DUE TO DIURETIC Code(s): E87.1 - HYPO-OSMOLALITY AND HYPONATREMIA (4) Uncontrolled diabetes mellitus Assessment/Plan: endo consult noted insulin increased bgm hga1c 9.3 nuerontin Code(s): E11.65 - TYPE 2 DIABETES MELLITUS WITH HYPERGLYCEMIA Qualifiers: Diabetes mellitus type: type 2 Diabetes mellitus complication status: with neurologic complications Diabetes mellitus complication detail: with unspecified neuropathy (5) UTI URINE CULTURE POSITIVE ON CIPRO Microbiology 03/14/16 10:15 Urine Culture - Final Urine - Urine Clean Catch Escherichia Coli Pseudomonas Aeruginosa E COLI RESISTENT TO CIPRO ID (6) Hypertension Code(s): I10 - ESSENTIAL (PRIMARY) HYPERTENSION Qualifiers: Hypertension type: essential hypertension Qualified Code(s): I10 - Essential (primary) hypertension (7) Pressure ulcer Assessment/Plan: silvadene prostat and vitamin c Code(s): L89.90 - PRESSURE ULCER OF UNSPECIFIED SITE, UNSPECIFIED STAGE Condition: Stable - Instructions Diet, Activity, Other Instructions: BMP Q WEEK CBC FOLLOW UP UA AND CULTURE Referrals: Karson Powell MD [Primary Care Provider] - Disposition: LONG-TERM FACILITY - Home Medications Comprehensive Discharge Medication List: Ambulatory Orders Acetaminophen [Mapap] 500 mg PO PRN PRN 03/11/16 Amlodipine/Valsartan [Exforge 5-320 mg Tablet] 1 tab PO DAILY 03/11/16 Ammonium Lactate Cream [Lac-Hydrin] 1 applic TP BID 03/11/16 Aspirin [ASA -] 81 mg PO DAILY 03/11/16 Atorvastatin Ca [Lipitor] 10 mg PO DAILY 03/11/16 Dexlansoprazole [Dexilant] 60 mg PO DAILY 03/11/16 Diclofenac Sodium [Voltaren] 100 gm TP BID 03/11/16 Fenofibric Acid [Trilipix -] 45 mg PO DAILY 03/11/16 Furosemide [Lasix] 20 mg PO DAILY 03/11/16 Gabapentin [Neurontin] 100 mg PO BID 03/11/16 Glipizide [Glipizide ER] 10 mg PO BID 03/11/16 Icosapent Ethyl [Vascepa] 2 gm PO BID 03/11/16 Insulin Aspart [Novolog] 0 unit SQ DAILY 03/11/16 Insulin Glargine,Hum.rec.anlog [Nimco Galindo] 35 unit SQ DAILY 03/11/16 Linaclotide [Linzess] 145 mcg PO DAILY 03/11/16 Nebivolol HCl [Bystolic] 5 mg PO DAILY 03/11/16 Nystatin Powder [Nystop Topical Powder -] 60 gm TP BID 03/11/16 Thiamine HCl [B-1] 100 mg PO DAILY 03/11/16
--- NOTE | 2016-03-17 13:12 | PN ---
Progress Note (short form) - Note Progress Note: Renal Follow up for CKD and Hyponatremia Pt seen and examined at the bedside no complaints feels well denies sob for discharge to rehab today Vital Signs Temperature 97.2 F L 03/17/16 10:00 Pulse Rate 70 03/17/16 10:00 Respiratory Rate 18 03/17/16 10:00 Blood Pressure 140/71 03/17/16 10:00 O2 Sat by Pulse Oximetry (%) 96 03/16/16 22:00 Intake & Output 03/14/16 03/15/16 03/16/16 03/17/16 23:59 23:59 23:59 23:59 Intake Total 530 1858 3146 664 Balance 530 1858 3146 664 Gen: NAD, awake and alert CVS: RRR Lungs: CTA Abd: soft NT/ND Ext: No edema, clubbing or cyanosis CBC, BMP 03/14/16 06:20 03/17/16 06:15 Current Medications Acetaminophen (Tylenol -) 650 mg PO Q6H PRN PRN Reason: PAIN Amino Acids (Prostat Sugar-Free Packet -) 30 ml PO BID@0800,1730 [facility] [place] Last Admin: 03/17/16 08:56 Dose: 30 ml Amlodipine Besylate (Norvasc -) 5 mg PO DAILY [facility] Last Admin: 03/17/16 09:29 Dose: 5 mg Ascorbic Acid (Vitamin C -) 500 mg PO DAILY [facility] [place] Last Admin: 03/17/16 09:29 Dose: 500 mg Aspirin (Asa -) 81 mg PO DAILY [facility] [place] Last Admin: 03/17/16 09:29 Dose: 81 mg Cephalexin HCl (Keflex -) 500 mg PO BID [facility] [place] Last Admin: 03/17/16 09:29 Dose: 500 mg Gabapentin (Neurontin -) 100 mg PO BID [facility] [place] Last Admin: 03/17/16 09:30 Dose: 100 mg Heparin Sodium (Porcine) (Heparin -) 5,000 unit SQ BID [facility] [place] Last Admin: 03/17/16 09:37 Dose: 5,000 unit Insulin Aspart (Novolog Vial Sliding Scale -) 1 vial SQ ACHS [facility] [place] PRN Reason: Protocol Last Admin: 03/17/16 11:54 Dose: 5 units Insulin Detemir (Levemir Vial) 40 units SQ AM [facility] [place] Lactic Acid (Lac-Hydrin 12) 1 applic TP BID [facility] [place] Last Admin: 03/17/16 09:34 Dose: 1 applic Lidocaine (Lidoderm Patch -) 1 patch TP DAILY [facility] [place] Last Admin: 03/17/16 09:33 Dose: Not Given Nebivolol (Bystolic -) 5 mg PO DAILY [facility] [place] Last Admin: 03/16/16 11:12 Dose: 5 mg Nystatin (Nystop Powder -) 1 applic TP BID [facility] [place] Last Admin: 03/17/16 09:45 Dose: 1 applic [id number] Ethyl Esters (Lovaza -) 2 gm PO BID [facility] [place] Last Admin: 03/16/16 23:10 Dose: 2 gm Pantoprazole Sodium (Protonix -) 40 mg PO DAILY [facility] [place] Last Admin: 03/17/16 09:29 Dose: 40 mg Polyethylene Glycol (Miralax (For Daily Use) -) 17 gm PO DAILY PRN Silver Sulfadiazine (Silvadene -) 1 applic TP BID [facility] [place] Last Admin: 03/17/16 09:46 Dose: 1 applic Thiamine HCl (Vitamin B1 -) 100 mg PO DAILY [facility] [place] Last Admin: 03/17/16 09:29 Dose: 100 mg A/P 85 year old woman with PMhx of DVT, Hypertension, HLD, DM, Dementia who is presenting to the ED for elevated blood glucose and found to have Na of 129 and Cr of 1.6. #TK on CKD Renal function improved to baseline Can resume ARB and lasix as outpatient Repeat BMP in 1 week as outpatient avoid nsaids, fleete enemas #Hyponatremia in setting of CKD Serum na WNL Fluid restriction of 1.5L as outpatient repat BMP in 1 week Alejandro Abreu DO
[2016-03-17] MEDS ORDERED: PT OWN MED DRAWER 7, Y5N ONE ×2 (21:16→23:15)
[2016-03-18] MEDS: NYSTATIN POWDER 100,000 UNITS/GM - 15 GM TOPICAL POWDER TP SCH ×2 (06:52→09:50)
[2016-03-18] MEDS: SILVER SULFADIAZINE 1% TOP CREAM 50 GM JAR TP SCH ×2 (06:52→09:50)
[2016-03-18] MEDS: INSULIN SLIDING SCALE (NOVOLOG) 1 VIAL SQ SCH ×3 (07:00→17:48)
[2016-03-18 08:07] LABS: CALCIUM 9.4 mg/dL (8.5-10.1); CREATININE 1.6 mg/dL (0.55-1.02)
[2016-03-18] MEDS ORDERED: PT OWN MED DRAWER 7, Y5N ONE (09:03)
[2016-03-18] MEDS: ASPIRIN 81 MG CHEWABLE TABLETS PO SCH (09:43)
[2016-03-18] MEDS: THIAMINE HCL 100 MG TABLET (FP) PO SCH (09:43)
[2016-03-18] MEDS: AMINO ACIDS/PROTEIN HYDROLYS SUGAR-FREE 30 ML PACKET PO SCH ×2 (09:43→17:51)
[2016-03-18] MEDS: ASCORBIC ACID 500 MG TABLET (FP) PO SCH (09:44)
[2016-03-18] MEDS: PANTOPRAZOLE 40 MG TABLET (FP) PO SCH (09:44)
[2016-03-18] MEDS: CEPHALEXIN MONOHYDRATE 500 MG CAPSULE (UD) PO SCH (09:44)
[2016-03-18] MEDS: GABAPENTIN 100 MG CAPSULE (FP) PO SCH (09:44)
[2016-03-18] MEDS: HEPARIN NA (PORCINE) 5,000 UNITS/ML 1ML VIAL SQ SCH (09:44)
[2016-03-18] MEDS: amLODIPine BESYLATE 5 MG TABLET (FP) PO SCH (09:44)
[2016-03-18] MEDS: NEBIVOLOL 5 MG TABLET (FP) PO SCH (09:44)
[2016-03-18] MEDS: AMMONIUM LACTATE 12% LOTION 225 GM BOTTLE TP SCH (09:45)
[2016-03-18] MEDS: LIDOCAINE 5% TOPICAL PATCH TP SCH (09:47)
[2016-03-18] MEDS: OMEGA-3 ACID ETHYL ESTERS (FATTY-ACIDS) 1 GM CAPSULE (FP) PO SCH (09:47)
--- NOTE | 2016-03-18 11:27 | PN ---
Progress Note, Physician History of Present Illness: FEELS BETTER - Current Medication List Current Medications: Active Medications Acetaminophen (Tylenol -) 650 mg PO Q6H PRN PRN Reason: PAIN Amino Acids (Prostat Sugar-Free Packet -) 30 ml PO BID@0800,1730 [facility] Last Admin: 03/18/16 09:43 Dose: 30 ml Amlodipine Besylate (Norvasc -) 5 mg PO DAILY [facility] Last Admin: 03/18/16 09:44 Dose: 5 mg Ascorbic Acid (Vitamin C -) 500 mg PO DAILY [facility] Last Admin: 03/18/16 09:44 Dose: 500 mg Aspirin (Asa -) 81 mg PO DAILY [facility] Last Admin: 03/18/16 09:43 Dose: 81 mg Cephalexin HCl (Keflex -) 500 mg PO BID [facility] Last Admin: 03/18/16 09:44 Dose: 500 mg Gabapentin (Neurontin -) 100 mg PO BID [facility] Last Admin: 03/18/16 09:44 Dose: 100 mg Heparin Sodium (Porcine) (Heparin -) 5,000 unit SQ BID [facility] Last Admin: 03/18/16 09:44 Dose: 5,000 unit Insulin Aspart (Novolog Vial Sliding Scale -) 1 vial SQ ACHS [facility] PRN Reason: Protocol Last Admin: 03/18/16 07:00 Dose: 4 units Insulin Detemir (Levemir Vial) 40 units SQ AM [facility] Last Admin: 03/18/16 06:51 Dose: 40 units Lactic Acid (Lac-Hydrin 12) 1 applic TP BID [facility] Last Admin: 03/18/16 09:45 Dose: 1 applic Lidocaine (Lidoderm Patch -) 1 patch TP DAILY [facility] Last Admin: 03/18/16 09:47 Dose: Not Given Nebivolol (Bystolic -) 5 mg PO DAILY [facility] Last Admin: 03/18/16 09:44 Dose: 5 mg Nystatin (Nystop Powder -) 1 applic TP BID [facility] Last Admin: 03/18/16 09:50 Dose: 1 applic [id number] Ethyl Esters (Lovaza -) 2 gm PO BID [facility] Last Admin: 03/18/16 09:47 Dose: 2 gm Pantoprazole Sodium (Protonix -) 40 mg PO DAILY [facility] Last Admin: 03/18/16 09:44 Dose: 40 mg Polyethylene Glycol (Miralax (For Daily Use) -) 17 gm PO DAILY PRN Silver Sulfadiazine (Silvadene -) 1 applic TP BID [facility] Last Admin: 03/18/16 09:50 Dose: 1 applic Thiamine HCl (Vitamin B1 -) 100 mg PO DAILY [facility] Last Admin: 03/18/16 09:43 Dose: 100 mg - Objective Vital Signs: Vital Signs Temperature 97.9 F 03/18/16 06:00 Pulse Rate 73 03/18/16 06:00 Respiratory Rate 18 03/18/16 06:00 Blood Pressure 139/77 03/18/16 06:00 O2 Sat by Pulse Oximetry (%) 99 03/17/16 21:00 Cardiovascular: Yes: S1, S2 Respiratory: Yes: Regular, CTA Bilaterally Gastrointestinal: Yes: Normal Bowel Sounds, Soft Edema: No Labs: CBC, BMP 03/14/16 06:20 03/18/16 06:20 INR, PTT INR 1.45 (0.82-1.09) H 03/12/16 10:05 Assessment/Plan - Problems (1) Chronic kidney disease (CKD) Assessment/Plan: renal consult noted renal sono right kidney slightly smaller will need outpatient renal fu RENAL FUNCTION WORSENING--HOLD LASIX--CXR--BLADDER SCAN --NOTED NOW STABLE--MONITOR AT [facility] Code(s): N18.9 - CHRONIC KIDNEY DISEASE, UNSPECIFIED Qualifiers: Chronic kidney disease stage: stage 1 Qualified Code(s): N18.1 - Chronic kidney disease, stage 1 (2) DVT (deep venous thrombosis) Assessment/Plan: heparin sub q Coumadin was stopped by pmd Code(s): I82.409 - ACUTE EMBOLISM AND THOMBOS UNSP DEEP VN UNSP LOWER EXTREMITY Qualifiers: DVT location: lower extremity Laterality: left Chronicity: chronic (3) Hyponatremia Assessment/Plan: sodium is improving MAYBE DUE TO DIURETIC Code(s): E87.1 - HYPO-OSMOLALITY AND HYPONATREMIA (4) Uncontrolled diabetes mellitus Assessment/Plan: endo consult noted insulin increased bgm hga1c 9.3 nuerontin Code(s): E11.65 - TYPE 2 DIABETES MELLITUS WITH HYPERGLYCEMIA Qualifiers: Diabetes mellitus type: type 2 Diabetes mellitus complication status: with neurologic complications Diabetes mellitus complication detail: with unspecified neuropathy (5) UTI URINE CULTURE POSITIVE START CIPRO Microbiology 03/14/16 10:15 Urine Culture - Preliminary Urine - Urine Clean Catch Lactose Fermenting Neg Bacilli Non Lactose Fermenting Gnb 03/12/16 14:45 Urine Culture - Final Urine - Urine Clean Catch Contaminated: Please Repeat (6) Hypertension Code(s): I10 - ESSENTIAL (PRIMARY) HYPERTENSION Qualifiers: Hypertension type: essential hypertension Qualified Code(s): I10 - Essential (primary) hypertension (7) Pressure ulcer Assessment/Plan: silvadene prostat and vitamin c Code(s): L89.90 - PRESSURE ULCER OF UNSPECIFIED SITE, UNSPECIFIED STAGE Assessment/Plan DC TO SNF WHEN BED AVAILABLE
--- NOTE | 2016-03-18 14:32 | DS ---
Physical Examination Vital Signs: Vital Signs Temperature 98.1 F 03/18/16 10:00 Pulse Rate 68 03/18/16 10:00 Respiratory Rate 18 03/18/16 10:00 Blood Pressure 137/52 03/18/16 10:00 O2 Sat by Pulse Oximetry (%) 99 03/18/16 09:00 Labs: CBC, BMP 03/14/16 06:20 03/18/16 06:20 Discharge Summary Reason For Visit: HYPONATERMIA CKD DIABETES MELLITIS Current Active Problems Chest pain (Acute) Chronic kidney disease (CKD) (Acute) DVT (deep venous thrombosis) (Acute) Dementia (Acute) Diastolic dysfunction without heart failure (Acute) Hyponatremia (Acute) Pressure ulcer (Acute) Uncontrolled diabetes mellitus (Acute) Hospital Course: Patient is an 85 year old female with significant medical hx of DVT, hypertension, hyperlipidemia, diabetes, and dementia who is presenting to the ED for abnormal labs. The patient is accompanied by family member who reports the patient has had high blood sugar the past few days measured as high as 320. The patient also recently saw Dr. Powell who reported she was hyponatremic. The patient complains of nausea and weakness; family member states she vomited a few times last week. The patient recently had biopsy done on a cell growth on the skin of her forehead that revealed cancer. Patient lives at home. PCP: Karson Powell MD History Source: Family Member Limitations to Obtaining History: Language Barrier - Past Medical History Cardiovascular: Yes: Deep Vein Thrombosis, HTN, Hyperlipdemia Dermatology: Yes: Other (skin cancer at forehead) Problems (1) Chronic kidney disease (CKD) Assessment/Plan: renal consult noted renal sono right kidney slightly smaller will need outpatient renal fu RENAL FUNCTION IMPROVING--HOLD LASIX-- Code(s): N18.9 - CHRONIC KIDNEY DISEASE, UNSPECIFIED Qualifiers: Chronic kidney disease stage: stage 1 Qualified Code(s): N18.1 - Chronic kidney disease, stage 1 (2) DVT (deep venous thrombosis) Assessment/Plan: heparin sub q Coumadin was stopped by pmd Code(s): I82.409 - ACUTE EMBOLISM AND THOMBOS UNSP DEEP VN UNSP LOWER EXTREMITY Qualifiers: DVT location: lower extremity Laterality: left Chronicity: chronic (3) Hyponatremia Assessment/Plan: sodium is improving MAYBE DUE TO DIURETIC Code(s): E87.1 - HYPO-OSMOLALITY AND HYPONATREMIA (4) Uncontrolled diabetes mellitus Assessment/Plan: endo consult noted insulin increased bgm hga1c 9.3 nuerontin Code(s): E11.65 - TYPE 2 DIABETES MELLITUS WITH HYPERGLYCEMIA Qualifiers: Diabetes mellitus type: type 2 Diabetes mellitus complication status: with neurologic complications Diabetes mellitus complication detail: with unspecified neuropathy (5) UTI URINE CULTURE POSITIVE ON CIPRO Microbiology 03/14/16 10:15 Urine Culture - Final Urine - Urine Clean Catch Escherichia Coli Pseudomonas Aeruginosa E COLI RESISTENT TO CIPRO ID (6) Hypertension Code(s): I10 - ESSENTIAL (PRIMARY) HYPERTENSION Qualifiers: Hypertension type: essential hypertension Qualified Code(s): I10 - Essential (primary) hypertension (7) Pressure ulcer Assessment/Plan: silvadene prostat and vitamin c Code(s): L89.90 - PRESSURE ULCER OF UNSPECIFIED SITE, UNSPECIFIED STAGE Condition: Stable - Instructions Diet, Activity, Other Instructions: DAILY WEIGHTS BMP Q WEEK CBC FOLLOW UP UA AND CULTURE IF BECOMES VOLUME OVERLOADED MAY NEED TO RESUME LASIX Referrals: Karson Powell MD [Primary Care Provider] - Disposition: [facility] - Home Medications Comprehensive Discharge Medication List: Ambulatory Orders Acetaminophen [Mapap] 500 mg PO PRN PRN 03/11/16 Ammonium Lactate Cream [Lac-Hydrin 12% Cream -] 1 applic TP BID 03/11/16 Aspirin [ASA -] 81 mg PO DAILY 03/11/16 Atorvastatin Ca [Lipitor] 10 mg PO DAILY 03/11/16 Fenofibric Acid [Trilipix -] 45 mg PO DAILY 03/11/16 Gabapentin [Neurontin] 100 mg PO BID 03/11/16 Icosapent Ethyl [Vascepa] 2 gm PO BID 03/11/16 Nebivolol HCl [Bystolic] 5 mg PO DAILY 03/11/16 Nystatin Powder [Nystop Powder -] 60 gm TP BID 03/11/16 Thiamine HCl [B-1] 100 mg PO DAILY 03/11/16 Cephalexin Monohydrate [Keflex -] 500 mg PO BID capsule 03/18/16 Heparin - 5,000 unit SQ BID vial 03/18/16 Insulin (Levemir) [Levemir Vial] 40 units SQ AM ml 03/18/16 Insulin Sliding Scale [Novolog Vial Sliding Scale -] 1 vial SQ ACHS units 03/18 Lidocaine 5% Patch [Lidoderm -] 1 patch TP DAILY patch 03/18/16 Pantoprazole Sodium [Protonix -] 40 mg PO DAILY tablet.ec 03/18/16 Polyethylene Glycol 3350 [Miralax 119 gm Btl -] 17 gm PO DAILY #0 bottle
[2016-03-18 15:23] VITALS: BP 144/58; PULSE 77; TEMP 98.3
== END 2016-03-18 18:00 | DRG 641 ==
LOC: JER 12:03 → JERBED 18:45 → J5S 03-12 05:42
PROVIDERS: ADMIT Family Medicine; ATTEND Family Medicine
DX: E87.1 Hypo-osmolality and hyponatremia (principal); N17.9 Acute kidney failure, unspecified; N39.0 Urinary tract infection, site not specified; Z86.718 Personal history of other venous thrombosis and embolism; E78.5 Hyperlipidemia, unspecified; F03.90 Unspecified dementia, unspecified severity, without behavioral disturbance, psychotic disturbance, mood disturbance, and anxiety; Z79.84 Long term (current) use of oral hypoglycemic drugs; E11.65 Type 2 diabetes mellitus with hyperglycemia; E11.22 Type 2 diabetes mellitus with diabetic chronic kidney disease; I12.9 Hypertensive chronic kidney disease with stage 1 through stage 4 chronic kidney disease, or unspecified chronic kidney disease; E11.43 Type 2 diabetes mellitus with diabetic autonomic (poly)neuropathy; K31.84 Gastroparesis; E86.0 Dehydration; N18.1 Chronic kidney disease, stage 1; B96.20 Unspecified Escherichia coli [E. coli] as the cause of diseases classified elsewhere; L89.159 Pressure ulcer of sacral region, unspecified stage
CPT/HCPCS: 36415; 71010-TC; 76775-TC; 80048; 80053; 80061; 81003; 81015; 82533; 82570; 83036; 83721; 83735; 83935; 84100; 84300; 84439; 84443; 85025; 85610; 85730; 87086; 87186; 97116-GP; 97163-GP; 99284-25; J1644

== ENCOUNTER 2018-12-22 10:51 | Inpatient (IN) | payer OTHER ==
--- NOTE | 2018-12-22 11:57 | PDOC ---
Attending Attestation - Resident Resident Name: Lester Bill - ED Attending Attestation I have performed the following: I have examined & evaluated the patient, The case was reviewed & discussed with the resident, I agree w/resident's findings & plan, Exceptions are as noted - HPI HPI: 12/22/18 11:54 88y F hx of dementia, ckd, hyponatremia, dvt, presents with generalized weakness. Family notes that the patient has been more generally weak than usual starting this weekend. The patient usually needs some assistance with ambulation however she required more assistance than usual there is no other focal complaints including fever, chills, obvious discomfort, nausea, vomiting, diarrhea, foul-smelling urine. The family has had a history of UTIs in the past. The patient herself has no complaints - Physicial Exam PE: 12/22/18 12:34 GENERAL: The patient is awake, alert, and oriented x 2. no acute complalints HEAD: Normocephalic, atraumatic. EYES: eomi, assymetric pupils ENT: Normal voice, Moist mucous membranes. NECK: Normal range of motion, supple LUNGS: Breath sounds equal, clear to auscultation bilaterally. No wheezes, no rhonchi, no rales. HEART: Regular rate and rhythm, normal S1 and S2 without murmur, rub or gallop. ABDOMEN: Soft, nontender, No guarding, no rebound. No CVA tenderness EXTREMITIES: Normal range of motion, no edema. NEUROLOGICAL: No facial assymetry, Normal speech, moving all 4 extremities spontaneously and symmetrically PSYCH: Normal mood, normal affect. SKIN: Warm, Dry, normal turgor, - Medical Decision Making 12/22/18 12:35 ddx - Nonfocal complaints, differential includes possible metabolic derangements , anemia, occult infection We will obtain blood work, UA, chest x-ray, EKG, Will reassess 12/22/18 14:35 pts labs reviewed noted for dennis, hyponatermia and uti will hydrate and start abx will admit for further management Heart Score/ECG Review - ECG Impressions Comment:: 12/22/18 12:34 Twelve-lead EKG was performed and reviewed by me. There is normal sinus rhythm with a normal rate. rate of 75 Left axis devaiation atnormal r wave progression
--- NOTE | 2018-12-22 12:04 | PDOC ---
History of Present Illness - General Chief Complaint: Weakness Stated Complaint: HYPOGLYCEMIA Time Seen by Provider: 12/22/18 11:08 History Source: Patient, Family (Daughter present at bedside.), Old Records Exam Limitations: Dementia - History of Present Illness Initial Comments: HPI: 88 y/o female presenting to [facility] ER complaining of generalized weakness since yesterday. Pt is accompanied by daughter at bedside who reports the pt began to display generalized weakness and increased somnolence since yesterday. No localizing weakness. H/o similar symptoms one year ago. Was evaluated at [facility] ED at that time and diagnosed with UTI. H/o of recurrent UTIs. Most recent UTI diagnosed by PCP three weeks ago; completed course of PO antibiotic two weeks ago. Pt is demented at baseline and unable to provide detailed answers. Daughter reports she is normally able to give basic details about surroundings but is unable to answer beyond yes or no today. No recent medication changes. Medical Hx: - Dementia - HTN - Diabetes - HLD - CKD - H/o DVT - H/o hyponatremia Review of Systems: In addition to that documented in the HPI above, the additional ROS was obtained : Constitutional- Denies fevers or chills Head- Denies vision changes ENMT- Denies sore throat CV- Denies chest pain Resp- Denies SOB GI- Denies vomiting or diarrhea - Denies painful urination MSK- Denies recent trauma Skin- Denies new rashes Neuro- Denies new numbness or tingling or weakness Endocrine- Denies polyuria Heme- Denies bleeding or bruising Physical Examination: Constitutional- Elderly adult female in no acute distress or obvious discomfort. Found semi-fowlers on hospital bed. Head- Normocephalic. No obvious external signs of trauma. Eyes- Left pupil pinpoint. Right pupil 4mm and reactive. Sclerae white. Conjunctiva moist and not injected. Throat- Oral cavity and pharynx normal. No inflammation, swelling, exudate, or lesions. Teeth and gingiva in good general condition. Neck- Supple, trachea is midline. Cardiovascular / Chest- Regular rate and regular rhythm. No murmur, rubs, clicks , or gallops. Peripheral pulses- radial pulses full. Trace pretibial edema bilaterally. Respiratory- Breathing unlabored. Equal chest rise and fall. Clear to auscultation bilaterally. No stridor, no wheezing, no rhonchi. Gastrointestinal- abdomen is soft, non-tender, non-distended. Neuro- Alert and oriented to person. Moving all four extremities spontaneously. No drift in right or left upper extremity. Unable to hold either right or left leg off bed, but bent legs at knee. Plantar flexion and dorsiflexion 5/5. No nuchal rigidity. Skin- Warm, dry, and intact. Psych- Affect- appropriate. Mood- normal. Speech was non-labored, non- pressured. MDM: *Reviewed vital signs, nursing notes, and prior visit documentation (if available). 88 y/o female presenting with generalized weakness. Afebrile. Vitals unremarkable for hypotension or tachycardia. Physical exam as described above. Labs revealed possible UTI in setting of mild hyponatremia and TK. Ordered IV hydration and abx. Pt to be admitted for continued IV abx. Lester Bill M.D., PGY2 Emergency Medicine Resident Past History - Past Medical History Allergies/Adverse Reactions: Allergies Allergy/AdvReac Type Severity Reaction Status Date / Time morphine Allergy Mild Swelling Verified 12/22/18 11:10 Home Medications: Ambulatory Orders Acetaminophen [Pain Relief] 500 mg PO QID PRN 12/23/18 Ammonium Lactate Cream [Lac-Hydrin 12% Cream -] 1 applic TP BID 12/23/18 Aspirin Coated [Ecotrin -] 81 mg PO DAILY 12/23/18 Atorvastatin Ca [Lipitor] 10 mg PO HS 12/23/18 Calcium Carbonate/Vitamin D3 [Calcium 500-Vit D3 400 Chew Tb] 1 tab.chew PO BID 12/23/18 Fenofibrate,Micronized [Antara] 90 mg PO DAILY 12/23/18 Folic Acid 1 mg PO DAILY 12/23/18 Icosapent Ethyl [Vascepa] 2 gm PO BID 12/23/18 Linaclotide [Linzess] 145 mcg PO DAILY 12/23/18 Thiamine HCl [B-1] 100 mg PO DAILY 12/23/18 Insulin (Levemir) [Levemir Vial] 7 units SQ AM #100 units 12/26/18 Iron Polysaccharides [Niferex-150 -] 150 mg PO DAILY #30 capsule 12/26/18 Nitrofurantoin Macrocrystal [Nitrofurantoin] 100 mg PO BID #14 capsule 12/26/18 Valsartan [Diovan] 160 mg PO DAILY #30 tablet 12/26/18 hydrALAZINE HCL [Apresoline -] 20 mg PO BID #20 tablet 12/26/18 Anemia: No Asthma: No Cancer: Yes (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) Cardiac Disorders: No CVA: No COPD: No CHF: No Diabetes: Yes Disorders: Yes HTN: Yes Hypercholesterolemia: Yes Seizures: No Thyroid Disease: No - Surgical History Abdominal Surgery: No Appendectomy: No Cholecystectomy: No Lung Surgery: Yes (tumor removed from right lung in 1996) Neurologic Surgery: No Orthopedic Surgery: No - Immunization History Immunization Up to Date: Yes - Psycho Social/Smoking Cessation Hx Smoking Status: Yes Smoking History: Former smoker Years of Tobacco Use: 20 Have you smoked in the past 12 months: No Number of Cigarettes Smoked Daily: 0 If you are a former smoker, when did you quit?: 50yrs ago Information on smoking cessation initiated: No Hx Alcohol Use: No Drug/Substance Use Hx: No Substance Use Type: None Hx Substance Use Treatment: No *Physical Exam - Vital Signs Last Vital Signs Temp Pulse Resp BP Pulse Ox 98 F 74 18 146/66 98 12/22/18 11:10 12/22/18 11:10 12/22/18 11:10 12/22/18 11:10 12/22/18 11:10 ED Treatment Course - LABORATORY CBC & Chemistry Diagram: 12/24/18 06:45 12/26/18 08:00 - ADDITIONAL ORDERS Additional order review: Laboratory Results 12/22/18 11:05 POC Glucometer 270 12/22/18 11:05 POC Glucometer 270 - RADIOLOGY Radiology Studies Ordered: Category Date Time Status HEAD CT WITHOUT CONTRAST [CT] Stat CT Scan 12/22/18 11:44 Ordered CHEST X-RAY PORTABLE* [RAD] Stat Radiology 12/22/18 11:44 Ordered Discharge - Discharge Information Problems reviewed: Yes Clinical Impression/Diagnosis: Elevated BUN, Elevated serum creatinine, Hyponatremia, Weakness UTI (urinary tract infection) Qualifiers: Urinary tract infection type: acute cystitis Hematuria presence: without hematuria Qualified Code(s): N30.00 - Acute cystitis without hematuria Condition: Stable Disposition: HOME - Admission Yes - Follow up/Referral - Patient Discharge Instructions - Post Discharge Activity
[2018-12-22 12:19] LABS: BASO % 0.8 % (0-2.0); EOS % 0.4 % (0-4.5); HEMATOCRIT 30.1 % (32.4-45.2); LYMPH % 8.4 % (8-40); MCH 26.3 pg (25.7-33.7); MCHC 33.1 g/dl (32.0-36.0); MEAN CELL VOLUME 79.4 fl (80-96); MEAN PLT VOLUME 6.8 fl (7.5-11.1); MONO % 8.2 % (3.8-10.2); NEUT % 82.2 % (42.8-82.8); PLATELET COUNT 374 K/MM3 (134-434); RBC 3.79 M/mm3 (3.60-5.2); RDW 14.9 % (11.6-15.6)
[2018-12-22 12:22] LABS: EPI CELLS 0.7 /HPF (0-5/HPF); HYALINE CASTS 5 /lpf (0-8); PH,URINE 6.5 (5.0-8.0); URINE APPEARANCE CLOUDY; URINE BACTERIA 2461.6 /hpf (NEGATIVE); URINE BILIRUBIN NEGATIVE (NEGATIVE); URINE COLOR YELLOW; URINE GLUCOSE (UA) 1+ (NEGATIVE); URINE KETONE NEGATIVE (NEGATIVE); URINE LEUK ESTERASE 3+ (NEGATIVE); URINE NITRITE NEGATIVE (NEGATIVE); URINE PROTEIN 2+ (NEGATIVE); URINE RBC 4 /hpf (0-4); URINE UROBILINOGEN 0.2 mg/dL (0.2-1.0); URINE WBC 181 /hpf (0-5)
[2018-12-22 12:38] LABS: INR 1.13 (0.83-1.09); PROTHROMBIN TIME (PATIENT) 13.3 SEC (9.7-13.0)
[2018-12-22 12:48] LABS: MAGNESIUM 1.7 mg/dL (1.8-2.4); PHOSPHOROUS 2.4 mg/dL (2.5-4.9)
[2018-12-22 13:16] LABS: ALBUMIN 2.9 g/dl (3.4-5.0); BILIRUBIN,TOTAL 0.2 mg/dL (0.2-1); BLOOD UREA NITROGEN 26.2 mg/dL (7-18); CALCIUM 8.3 mg/dL (8.5-10.1); CREATININE 2.2 mg/dL (0.55-1.3); POTASSIUM 4.8 mmol/L (3.5-5.1); TOT PROT 6.9 g/dl (6.4-8.2)
[2018-12-22] MEDS ORDERED: LACTATED RINGERS SOLUTION 1,000 ML/1,000 ML INFUS.BAG IV SCH (14:00)
[2018-12-22] MEDS ORDERED: CEFTRIAXONE 2,000 MG in DEXTROSE 5%-WATER - 50 ML IVPB ONE (14:02)
[2018-12-22] MEDS ORDERED: CEFTRIAXONE 2 GM/100 ML BAG IVPB ONE (14:05)
[2018-12-22] MEDS ORDERED: SODIUM CHLORIDE 1,000 ML IV SCH (14:15)
[2018-12-22] MEDS ORDERED: SODIUM PHOSPHATE - 20 MM in DEXTROSE 5%-WATER - 250 ML IVPB ONE (15:43)
[2018-12-22] MEDS ORDERED: MAGNESIUM SULF 50% (8.12 MEQ/2 ML-1 GM VIAL) IVPB ONE (15:43)
--- NOTE | 2018-12-22 15:52 | EKG ---
Test Reason : Blood Pressure : / mmHG Vent. Rate : 075 BPM Atrial Rate : 075 BPM P-R Int : 188 ms QRS Dur : 084 ms QT Int : 380 ms P-R-T Axes : 066 -30 019 degrees QTc Int : 424 ms NORMAL SINUS RHYTHM LEFT AXIS DEVIATION MODERATE VOLTAGE CRITERIA FOR LVH, MAY BE NORMAL VARIANT INFERIOR INFARCT (CITED ON OR BEFORE 13-JUN-2007) ABNORMAL ECG WHEN COMPARED WITH ECG OF 15-OCT-2015 18:41, T WAVE VARIATION Confirmed by KATIE SNYDER MD ([id number]) on 12/22/2018 3:52:35 PM Referred By: Confirmed By:KATIE SNYDER MD
[2018-12-22] MEDS ORDERED: MAGNESIUM 1GM/D5W - 2 GM/200 ML IVPB IVPB ONE (15:54)
[2018-12-22] MEDS: SODIUM CHLORIDE 1,000 ML IV SCH ×2 (15:59→22:23)
--- NOTE | 2018-12-22 16:00 | HP ---
Admitting History and Physical - Admission Chief Complaint: came in for weakness History of Present Illness: 88y F hx of dementia, ckd, hyponatremia, dvt, presents with generalized weakness. Family notes that the patient has been more generally weak than usual starting this weekend. The patient usually needs some assistance with ambulation however she required more assistance than usual there is no other focal complaints including fever, chills, obvious discomfort, nausea, vomiting, diarrhea, foul-smelling urine. The family has had a history of UTIs in the past. 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: Yes: Dementia Cardiovascular: Yes: Deep Vein Thrombosis, HTN, Hyperlipdemia Renal/: Yes: Renal Inusuff Dermatology: Yes: Other (skin cancer at forehead) - Smoking History Smoking history: Former smoker Have you smoked in the past 12 months: No Aproximately how many cigarettes per day: 0 If you are a former smoker, when did you quit?: 50yrs ago - Alcohol/Substance Use Hx Alcohol Use: No Home Medications - Allergies Allergies/Adverse Reactions: Allergies Allergy/AdvReac Type Severity Reaction Status Date / Time morphine Allergy Mild Swelling Verified 12/22/18 11:10 - Home Medications Home Medications: Ambulatory Orders Acetaminophen [Mapap] 500 mg PO PRN PRN 03/11/16 Ammonium Lactate Cream [Lac-Hydrin 12% Cream -] 1 applic TP BID 03/11/16 Aspirin [ASA -] 81 mg PO DAILY 03/11/16 Atorvastatin Ca [Lipitor] 10 mg PO DAILY 03/11/16 Fenofibric Acid [Trilipix -] 45 mg PO DAILY 03/11/16 Gabapentin [Neurontin] 100 mg PO BID 03/11/16 Icosapent Ethyl [Vascepa] 2 gm PO BID 03/11/16 Nebivolol HCl [Bystolic] 5 mg PO DAILY 03/11/16 Nystatin Powder [Nystop Powder -] 60 gm TP BID 03/11/16 Thiamine HCl [B-1] 100 mg PO DAILY 03/11/16 Cephalexin Monohydrate [Keflex -] 500 mg PO BID capsule 03/18/16 Heparin - 5,000 unit SQ BID vial 03/18/16 Insulin (Levemir) [Levemir Vial] 40 units SQ AM ml 03/18/16 Insulin Sliding Scale [Novolog Vial Sliding Scale -] 1 vial SQ ACHS units 03/18 Lidocaine 5% Patch [Lidoderm -] 1 patch TP DAILY patch 03/18/16 Pantoprazole Sodium [Protonix -] 40 mg PO DAILY tablet.ec 03/18/16 Polyethylene Glycol 3350 [Miralax 119 gm Btl -] 17 gm PO DAILY #0 bottle Review of Systems - Review of Systems Constitutional: reports: Weakness Physical Examination Vital Signs: Vital Signs Temperature 98 F 12/22/18 11:10 Pulse Rate 74 12/22/18 11:10 Respiratory Rate 18 12/22/18 11:10 Blood Pressure 146/66 12/22/18 11:10 O2 Sat by Pulse Oximetry (%) 98 12/22/18 11:10 Constitutional: Yes: Calm, Thin Cardiovascular: Yes: Regular Rate and Rhythm, S1, S2 Respiratory: Yes: CTA Bilaterally Gastrointestinal: Yes: Normal Bowel Sounds, Soft Edema: No Neurological: Yes: Alert, Oriented Labs: CBC, BMP 12/22/18 11:50 12/22/18 11:50 Problem List - Problems (1) Hyponatremia Assessment/Plan: ivf renal eval check tsh Code(s): E87.1 - HYPO-OSMOLALITY AND HYPONATREMIA (2) TK (acute kidney injury) Assessment/Plan: ivf renal sono acute on chronic kidney disease Code(s): N17.9 - ACUTE KIDNEY FAILURE, UNSPECIFIED (3) Diabetes Assessment/Plan: bgm sliding scale insulin Code(s): E11.9 - TYPE 2 DIABETES MELLITUS WITHOUT COMPLICATIONS Qualifiers: Diabetes mellitus type: type 2 Diabetes mellitus 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
[2018-12-22 18:44] VITALS: BMI 32.4
[2018-12-22] MEDS ORDERED: PNEUMOC 13-VAL CONJ-DIP CRM/PF 0.5 ML DISP.SYRIN IM ONE (18:44)
[2018-12-22] MEDS ORDERED: FLU VACCINE QUAD 60 MCG/0.5 ML (MDV 19-20) IM ONE ×2 (18:44→20:05)
[2018-12-22] MEDS ORDERED: INSULIN (NOVOLOG) ASPART 100 UNITS/ML 10ML VIAL ONE (20:18)
[2018-12-22] MEDS: HEPARIN NA (PORCINE) 5,000 UNITS/ML 1ML VIAL SQ SCH (22:16)
[2018-12-22] MEDS: NAPH,MB-DB/K PH,MBDB POWDER PACKET PO SCH (22:16)
[2018-12-22] MEDS: ATORVASTATIN CA 10 MG TABLET (FP) PO SCH (22:16)
[2018-12-22] MEDS: INSULIN SLIDING SCALE (NOVOLOG) 1 VIAL SQ SCH (22:16)
[2018-12-23] MEDS: INSULIN SLIDING SCALE (NOVOLOG) 1 VIAL SQ SCH ×4 (06:53→21:59)
[2018-12-23] MEDS ORDERED: cefTRIAXone SODIUM 1 GM VIAL ONE (10:45)
[2018-12-23] MEDS ORDERED: DEXTROSE 5%-WATER - 50 ML IVPB ONE (10:46)
[2018-12-23 10:53] LABS: HEMATOCRIT 27.4 % (32.4-45.2); HEMOGLOBIN 8.9 GM/dL (10.7-15.3); MCH 25.9 pg (25.7-33.7); MCHC 32.6 g/dl (32.0-36.0); MEAN CELL VOLUME 79.4 fl (80-96); MEAN PLT VOLUME 6.8 fl (7.5-11.1); PLATELET COUNT 342 K/MM3 (134-434); RBC 3.45 M/mm3 (3.60-5.2); RDW 14.7 % (11.6-15.6); WHITE BLOOD COUNT 6.6 K/mm3 (4.0-10.0)
[2018-12-23] MEDS: HEPARIN NA (PORCINE) 5,000 UNITS/ML 1ML VIAL SQ SCH ×2 (10:56→21:58)
[2018-12-23] MEDS: CEFTRIAXONE 1 GM in DEXTROSE 5%-WATER - 50 ML IVPB SCH (10:56)
[2018-12-23] MEDS: NAPH,MB-DB/K PH,MBDB POWDER PACKET PO SCH ×2 (10:56→21:59)
--- NOTE | 2018-12-23 11:14 | PN ---
Progress Note, Physician Chief Complaint: Weakness UTI TK Hyponatremia History of Present Illness: NAD in bed daughter at bedside - Current Medication List Current Medications: Active Medications Atorvastatin Calcium (Lipitor -) 10 mg PO HS [facility] Last Admin: 12/22/18 22:16 Dose: 10 mg Heparin Sodium (Porcine) (Heparin -) 5,000 unit SQ BID GUMARO Last Admin: 12/23/18 10:56 Dose: 5,000 unit Sodium Chloride (Normal Saline -) 1,000 mls @ 75 mls/hr IV ASDIR GUMARO Last Admin: 12/22/18 22:23 Dose: 75 mls/hr Ceftriaxone Sodium 1 gm/ (Dextrose) 50 mls @ 200 mls/hr IVPB DAILY [facility]; Protocol Last Admin: 12/23/18 10:56 Dose: 200 mls/hr Insulin Aspart (Novolog Vial Sliding Scale -) 1 vial SQ ACHS [facility]; Protocol Last Admin: 12/23/18 06:53 Dose: Not Given Potassium Phos/Sodium Phos (Phos-Nak Packet -) 1 packet PO BID [facility] Last Admin: 12/23/18 10:56 Dose: 1 packet - Objective Vital Signs: Vital Signs Temperature 97.7 F 12/23/18 06:00 Pulse Rate 81 12/23/18 06:00 Respiratory Rate 18 12/23/18 06:00 Blood Pressure 151/77 12/23/18 06:00 O2 Sat by Pulse Oximetry (%) 95 12/22/18 21:00 Constitutional: Yes: Well Nourished, No Distress, Calm Cardiovascular: Yes: Regular Rate and Rhythm Respiratory: Yes: Regular Gastrointestinal: Yes: Normal Bowel Sounds, Soft Genitourinary: Yes: WNL Musculoskeletal: Yes: WNL Extremities: Yes: WNL Edema: No Peripheral Pulses WNL: Yes Neurological: Yes: Alert, Oriented Psychiatric: Yes: Alert, Oriented Labs: CBC, BMP 12/23/18 09:50 INR, PTT INR 1.13 (0.83-1.09) H 12/22/18 11:50 Problem List - Problems (1) TK (acute kidney injury) Assessment/Plan: -2/2 to UTI -UC pending Problems reviewed: Yes Code(s): N17.9 - ACUTE KIDNEY FAILURE, UNSPECIFIED (2) Hyponatremia Assessment/Plan: -IVF -NS @ 60 cc/hr Problems reviewed: Yes Code(s): E87.1 - HYPO-OSMOLALITY AND HYPONATREMIA (3) UTI (urinary tract infection) Assessment/Plan: -ID consult -IV abx -UC pending Problems reviewed: Yes Code(s): N39.0 - URINARY TRACT INFECTION, SITE NOT SPECIFIED Qualifiers: Urinary tract infection type: acute cystitis Hematuria presence: without hematuria Qualified Code(s): N30.00 - Acute cystitis without hematuria (4) Weakness Assessment/Plan: -likely 2/2 to UTI -Physical therapy Problems reviewed: Yes Code(s): R53.1 - WEAKNESS (5) Anemia Assessment/Plan: -Stool OB pending -B12+ thyroid profile normal -monitor trend Problems reviewed: Yes Code(s): D64.9 - ANEMIA, UNSPECIFIED (6) Diabetes Assessment/Plan: -Check A1c -Endocrine consult -Diabetic pureed diet -BGM AC HS -ISS Problems reviewed: Yes Code(s): E11.9 - TYPE 2 DIABETES MELLITUS WITHOUT COMPLICATIONS Qualifiers: Diabetes mellitus type: type 2 Diabetes mellitus 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
[2018-12-23 11:25] LABS: CHOLESTEROL 104 mg/dL (50-200); HDL CHOLESTEROL 21 mg/dL (40-60); LDL CHOLESTEROL (ONLY SJRH) 62 mg/dL (5-100); TRIGLYCERIDES 136 mg/dL (0-150)
--- NOTE | 2018-12-23 11:32 | PN ---
Progress Note (short form) - Note Progress Note: ID CONSULT DICTATED RECURRENT UTI POSSIBLE SEPSIS SECONDARY TO UTI CKD OBS AWAIT C/S EMPIRIC [id number]
[2018-12-23 11:37] LABS: ALBUMIN 2.4 g/dl (3.4-5.0); BILIRUBIN,TOTAL 0.3 mg/dL (0.2-1); BLOOD UREA NITROGEN 20.4 mg/dL (7-18); CALCIUM 7.7 mg/dL (8.5-10.1); CREATININE 1.7 mg/dL (0.55-1.3); MAGNESIUM 2.1 mg/dL (1.8-2.4); PHOSPHOROUS 3.1 mg/dL (2.5-4.9); POTASSIUM 4.5 mmol/L (3.5-5.1)
[2018-12-23 11:52] LABS: IRON SERUM 10 ug/dL (50-175); TOTAL IRON BINDING CAPACITY 307 ug/dL (250-450)
--- NOTE | 2018-12-23 12:37 | CONSULT ---
Consult Consult Specialty:: Nephrology Reason for Consultation:: TK and hyponatremia - History of Present Illness Chief Complaint: weakness History of Present Illness: Pt is an 88 year old female with pmhx of ckd, dementia, hyponatremia and DVT who presents with generalized weakness. She was found to have elevated creatinine. She has CKD and follows with Dr Alvarez. I was called as I cover him in the hospital. She last saw Dr Alvarez about 2 months ago at which time her renal function was stable. She was recommended to get an ultrasound at the time but has not gotten one yet. Her daughter is at bedside and did help with history. She has had decreased PO intake. She does complain of mild lower ext edema. She denies shortness of breath. She denies dysuria or hematuria. 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 Cardio/Vascular: Yes: Deep Vein Thrombosis, HTN, Hyperlipdemia Renal/: Yes: Renal Inusuff ...: No Dermatology: Yes: Other (skin cancer at forehead) - Alcohol/Substance Use Hx Alcohol Use: No - Smoking History Smoking history: Former smoker Have you smoked in the past 12 months: No Aproximately how many cigarettes per day: 0 If you are a former smoker, when did you quit?: 50yrs ago Home Medications - Allergies Allergies/Adverse Reactions: Allergies Allergy/AdvReac Type Severity Reaction Status Date / Time morphine Allergy Mild Swelling Verified 12/22/18 11:10 - Home Medications Home Medications: Ambulatory Orders Acetaminophen [Pain Relief] 500 mg PO QID PRN 12/23/18 Amlodipine Bes/Olmesartan Med [Amlodipine-Olmesartan 10-20 mg] 1 tab PO DAILY Ammonium Lactate Cream [Lac-Hydrin 12% *Cream*] 1 applic TP BID 12/23/18 Aspirin Coated [Ecotrin -] 81 mg PO DAILY 12/23/18 Atorvastatin Ca [Lipitor] 10 mg PO HS 12/23/18 Betamethasone Dipropionate [Diprolene] 1 applic TP BID 12/23/18 Calcium Carbonate/Vitamin D3 [Calcium 500-Vit D3 400 Chew Tb] 1 tab.chew PO BID 12/23/18 Diclofenac Sodium [Voltaren] 100 gm TP BID 12/23/18 Fenofibrate,Micronized [Antara] 90 mg PO DAILY 12/23/18 Ferrous Sulfate 325 mg PO DAILY 12/23/18 Folic Acid 1 mg PO DAILY 12/23/18 Furosemide [Lasix] 20 mg PO DAILY 12/23/18 Gabapentin [Neurontin] 100 mg PO TID 12/23/18 Glipizide 10 mg PO BIDAC 12/23/18 Icosapent Ethyl [Vascepa] 2 gm PO BID 12/23/18 Insulin Glargine,Hum.rec.anlog [Toujeo Solostar] 300 unit SQ ACDIN 12/23/18 Insulin Lispro [Humalog] See Protocol SQ PRN 12/23/18 Linaclotide [Linzess] 145 mcg PO DAILY 12/23/18 Nebivolol HCl [Bystolic] 10 mg PO DAILY 12/23/18 Nystatin Powder [Nystop Topical Powder -] 15 gm TP BID 12/23/18 Thiamine HCl [B-1] 100 mg PO DAILY 12/23/18 Family Medical History Family History: Denies Review of Systems - Review of Systems Constitutional: reports: Malaise Eyes: reports: No Symptoms HENT: reports: No Symptoms Neck: reports: No Symptoms Cardiovascular: reports: Edema Gastrointestinal: reports: No Symptoms Genitourinary: reports: No Symptoms Musculoskeletal: reports: No Symptoms Integumentary: reports: No Symptoms Neurological: reports: No Symptoms Endocrine: reports: No Symptoms Hematology/Lymphatic: reports: No Symptoms Psychiatric: reports: No Symptoms Physical Exam Vital Signs: Vital Signs Temperature 97.7 F 12/23/18 06:00 Pulse Rate 81 12/23/18 06:00 Respiratory Rate 18 12/23/18 06:00 Blood Pressure 151/77 12/23/18 06:00 O2 Sat by Pulse Oximetry (%) 95 12/22/18 21:00 Constitutional: Yes: Calm Eyes: Yes: Conjunctiva Clear HENT: Yes: Atraumatic Neck: Yes: Supple Cardiovascular: Yes: S1, S2 Respiratory: Yes: CTA Bilaterally Gastrointestinal: Yes: Normal Bowel Sounds, Soft Renal/: Yes: WNL Musculoskeletal: Yes: WNL Edema: Yes Edema: LLE: Trace, RLE: Trace Neurological: Yes: Oriented Psychiatric: Yes: Oriented Labs: CBC, BMP 12/23/18 09:50 12/23/18 09:50 Laboratory Tests 03/18/16 12/22/1819 06:20 11:50 09:50 Sodium 126 L 131 L Creatinine 1.6 H 2.2 H 1.7 H Imaging - Results Ultrasound: Report Reviewed Problem List - Problems (1) TK (acute kidney injury) Code(s): N17.9 - ACUTE KIDNEY FAILURE, UNSPECIFIED (2) Hyponatremia Code(s): E87.1 - HYPO-OSMOLALITY AND HYPONATREMIA (3) Chronic kidney disease (CKD) Code(s): N18.9 - CHRONIC KIDNEY DISEASE, UNSPECIFIED Qualifiers: Chronic kidney disease stage: stage 1 Qualified Code(s): N18.1 - Chronic kidney disease, stage 1 Assessment/Plan Current Medications Generic Name Dose Route Start Last Admin Trade Name Freq PRN Reason Stop Dose Admin Atorvastatin Calcium 10 mg 12/22/18 22:00 12/22/18 22:16 Lipitor - PO 10 mg HS GUMARO Administration Heparin Sodium (Porcine) 5,000 unit 12/22/18 22:00 12/23/18 10:56 Heparin - SQ 5,000 unit BID GUMARO Administration Sodium Chloride 1,000 mls @ 75 mls/hr 12/22/18 15:45 12/22/18 22:23 Normal Saline - IV 75 mls/hr ASDIR GUMARO Administration Ceftriaxone Sodium 1 gm/ 50 mls @ 200 mls/hr 12/23/18 10:00 12/23/18 10:56 Dextrose IVPB 200 mls/hr DAILY GUMARO Administration Protocol Insulin Aspart 1 vial 12/22/18 22:00 12/23/18 12:30 Novolog Vial Sliding Scale - SQ Not Given ACHS GUMARO Protocol Polysaccharide Iron Complex 150 mg 12/23/18 12:30 Niferex-150 - PO DAILY GUMARO Potassium Phos/Sodium Phos 1 packet 12/22/18 22:00 12/23/18 10:56 Phos-Nak Packet - PO 1 packet BID GUMARO Administration Impression 1. TK 2. CKD 3. HTN 4. hyponatremia 5. nsaid use 6. UTI 7. dementia 8. dvt Plan - renal function improved with fluids - sodium is improving - decrease rate of saline - cont abx for uti - restart arb - hold calcium channel mandy as it may contribute to edema - d/c diclofenac and avoid nsaids
--- NOTE | 2018-12-23 15:43 | CONS ---
DATE OF CONSULTATION: DATE OF DICTATION: 12/23/2018 INFECTIOUS DISEASE CONSULTATION HISTORY OF PRESENT ILLNESS: The patient is an 88-year-old female who is evaluated for recurrent urinary tract infection, possible secondary to UTI. She was admitted to the hospital from home on December 22, 2018, with generalized weakness. History was obtained from the patient's daughter, who was present at the time of examination. Patient suffers from dementia and is primarily [place] speaking. She has a history of recurrent urinary tract infections, and according to the daughter was treated for a UTI with a 10-day course of oral antibiotic therapy at the beginning of the month. She now presents with profound weakness. She denies any focal complaint. As per daughter, she denied any dysuria, hematuria, frequency, or urgency. No complaints of suprapubic or flank pain. She denies any chest pain, shortness of breath, cough or sputum production. No vomiting or diarrhea. The patient has had frequent urinary tract infections in the past. On review of cultures, she has had sensitive organisms including E. coli and Enterobacter. She denies any associated fever or chills. No history of multidrug resistant pathogens. PAST MEDICAL HISTORY: Positive for dementia, chronic kidney disease, hypertension, diabetes mellitus, hypothyroidism, hyponatremia, DVT. PAST SURGICAL HISTORY: Status post lung resection. Includes status post excision of basal cell carcinoma earlier this year. ALLERGIES: MORPHINE. MEDICATION: Include ceftriaxone, Lipitor, heparin. SOCIAL HISTORY: She resides at home. She is essentially wheelchair bound; however, she is able to ambulate short distances with assistance. She is a nonsmoker, nondrinker. No recent [facility] hospitalizations; however, daughter states she has been hospitalized at [facility] within the past several months. She had not received influenza vaccine prior to this visit. Originally from the [place], has been living in the [place] since 1983. No recent travel. No active tobacco or alcohol use. SYSTEMS REVIEW: Neurologic: Positive for dementia. Cardiac: Negative for chest pain or palpitations. Respiratory: Negative for cough or sputum production. Gastrointestinal: Negative vomiting or diarrhea. Genitourinary: As per HPI. LABORATORY DATA: White count 9.0, hematocrit 30.1, platelet count 374, BUN 26, creatinine 2.2. Urinalysis: 181 white cells. 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 Chest x-ray negative for acute infiltrate. PHYSICAL EXAMINATION: General: On exam, she is awake and alert, she is not acutely toxic appearing, she is supine in bed, morbidly obese. Vital signs: Temperature 97.7, blood pressure 151/81, pulse 81 regular, respirations 18 per minute. HEENT: Sclerae anicteric. There is a circular soft tissue defect present in the forehead from previous basal cell excision. Cardiovascular: Heart sounds S1, S2. Lungs: Clear. There are some excoriations noted below the right breast. Abdomen: Obese. Soft, no tenderness elicited. No suprapubic or flank tenderness. Extremities: Negative for edema. Negative Homans sign. IMPRESSION: 1. Recurrent urinary tract infection, lactose fixed assets accountant. 2. Possible sepsis secondary to urinary tract infection. 3. Chronic kidney disease. 4. Dementia. Await cultures. Continue empiric ceftriaxone, pending cultures. Case discussed with patient's daughter present at the time of the examination. Thank you for the kind referral. BATSHEVA KRISHNAN M.D. [id number]
[2018-12-23] MEDS: VALSARTAN 160 MG TABLET (UD) PO SCH (16:21)
[2018-12-23] MEDS: SODIUM CHLORIDE 1,000 ML IV SCH (16:21)
[2018-12-23] MEDS: IRON POLYSACCHARIDES 150 MG CAPSULE PO SCH (16:25)
[2018-12-23] MEDS ORDERED: INSULIN (NOVOLOG) ASPART 100 UNITS/ML 10ML VIAL ONE (21:54)
[2018-12-23] MEDS: ATORVASTATIN CA 10 MG TABLET (FP) PO SCH (21:59)
--- NOTE | 2018-12-24 00:25 | CONSULT ---
Consult Consult Specialty:: endocrine Referred by:: dr.saba blas Reason for Consultation:: dmt2 - History of Present Illness Chief Complaint: weak and poor appetite History of Present Illness: 88y F hx of DM2,dementia, ckd, hyponatremia, dvt, was admitted with generalized weakness. Family noted that the patient has been more generally weak than usual confused and poor intake of food,foul smelling urine, high blood sugars.upon admission,found to have uti ,and tk,. 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 Cardio/Vascular: Yes: Deep Vein Thrombosis, HTN, Hyperlipdemia Renal/: Yes: Renal Inusuff ...: No Dermatology: Yes: Other (skin cancer at forehead) - Alcohol/Substance Use Hx Alcohol Use: No - Smoking History Smoking history: Former smoker Have you smoked in the past 12 months: No Aproximately how many cigarettes per day: 0 If you are a former smoker, when did you quit?: 50yrs ago Home Medications - Allergies Allergies/Adverse Reactions: Allergies Allergy/AdvReac Type Severity Reaction Status Date / Time morphine Allergy Mild Swelling Verified 12/22/18 11:10 - Home Medications Home Medications: Ambulatory Orders Acetaminophen [Pain Relief] 500 mg PO QID PRN 12/23/18 Amlodipine Bes/Olmesartan Med [Amlodipine-Olmesartan 10-20 mg] 1 tab PO DAILY Ammonium Lactate Cream [Lac-Hydrin 12% *Cream*] 1 applic TP BID 12/23/18 Aspirin Coated [Ecotrin -] 81 mg PO DAILY 12/23/18 Atorvastatin Ca [Lipitor] 10 mg PO HS 12/23/18 Betamethasone Dipropionate [Diprolene] 1 applic TP BID 12/23/18 Calcium Carbonate/Vitamin D3 [Calcium 500-Vit D3 400 Chew Tb] 1 tab.chew PO BID 12/23/18 Diclofenac Sodium [Voltaren] 100 gm TP BID 12/23/18 Fenofibrate,Micronized [Antara] 90 mg PO DAILY 12/23/18 Ferrous Sulfate 325 mg PO DAILY 12/23/18 Folic Acid 1 mg PO DAILY 12/23/18 Furosemide [Lasix] 20 mg PO DAILY 12/23/18 Gabapentin [Neurontin] 100 mg PO TID 12/23/18 Glipizide 10 mg PO BIDAC 12/23/18 Icosapent Ethyl [Vascepa] 2 gm PO BID 12/23/18 Insulin Glargine,Hum.rec.anlog [Nimco Galindo] 300 unit SQ ACDIN 12/23/18 Insulin Lispro [Humalog] See Protocol SQ PRN 12/23/18 Linaclotide [Linzess] 145 mcg PO DAILY 12/23/18 Nebivolol HCl [Bystolic] 10 mg PO DAILY 12/23/18 Nystatin Powder [Nystop Topical Powder -] 15 gm TP BID 12/23/18 Thiamine HCl [B-1] 100 mg PO DAILY 12/23/18 Review of Systems Unable to obtain ROS, reason: confused Physical Exam Vital Signs: Vital Signs Temperature 97.8 F 12/23/18 18:20 Pulse Rate 84 12/23/18 19:32 Respiratory Rate 18 12/23/18 18:20 Blood Pressure 152/78 12/23/18 19:32 O2 Sat by Pulse Oximetry (%) 95 12/23/18 09:00 Constitutional: Yes: Calm Eyes: Yes: EOM Intact HENT: Yes: Normocephalic, Other Neck: Yes: Trachea Midline Cardiovascular: Yes: Regular Rate and Rhythm Respiratory: Yes: CTA Bilaterally Gastrointestinal: Yes: Normal Bowel Sounds ...Rectal Exam: Yes: Deferred Renal/: Yes: Incontinence Musculoskeletal: Yes: Muscle Pain, Muscle Weakness Extremities: Yes: Delayed Capillary Refill Edema: No Neurological: Yes: Alert, Lethargy, Unsteady Gait, Weakness Labs: CBC, BMP 12/23/18 09:50 12/23/18 09:50 Problem List - Problems (1) TK (acute kidney injury) Problems reviewed: Yes Code(s): N17.9 - ACUTE KIDNEY FAILURE, UNSPECIFIED (2) Anemia Problems reviewed: Yes Code(s): D64.9 - ANEMIA, UNSPECIFIED (3) Elevated BUN Problems reviewed: Yes Code(s): R79.9 - ABNORMAL FINDING OF BLOOD CHEMISTRY, UNSPECIFIED (4) Elevated serum creatinine Problems reviewed: Yes Code(s): R79.89 - OTHER SPECIFIED ABNORMAL FINDINGS OF BLOOD CHEMISTRY (5) Hyponatremia Problems reviewed: Yes Code(s): E87.1 - HYPO-OSMOLALITY AND HYPONATREMIA (6) UTI (urinary tract infection) Problems reviewed: Yes Code(s): N39.0 - URINARY TRACT INFECTION, SITE NOT SPECIFIED Qualifiers: Urinary tract infection type: acute cystitis Hematuria presence: without hematuria Qualified Code(s): N30.00 - Acute cystitis without hematuria (7) Weakness Code(s): R53.1 - WEAKNESS Assessment/Plan Current Active Problems DMT2,hyperglycemia KT (acute kidney injury) (Acute) Anemia (Acute) Elevated BUN (Acute) Elevated serum creatinine (Acute) Hyponatremia (Acute) UTI (urinary tract infection) (Acute) Weakness (Acute) Abnormal Lab Results 12/23/18 12/23/18 12/23/18 09:50 09:50 09:50 RBC 3.45 L Hgb 8.9 L Hct 27.4 L MCV 79.4 L MPV 6.8 L Sodium 131 L BUN 20.4 H Creatinine 1.7 H Random Glucose 144 H Hemoglobin A1c % < 3.5 L Calcium 7.7 L Iron Iron Saturation Unsaturated IBC Total Protein 6.0 L Albumin 2.4 L HDL Cholesterol 12/23/18 09:50 RBC Hgb Hct MCV MPV Sodium BUN Creatinine Random Glucose Hemoglobin A1c % Calcium Iron 10 L Iron Saturation 3 L Unsaturated IBC 297 H Total Protein Albumin HDL Cholesterol 21 L Laboratory Results - last 24 hr 12/23/18 12/23/18 12/23/18 06:18 09:50 09:50 WBC 6.6 RBC 3.45 L Hgb 8.9 L Hct 27.4 L MCV 79.4 L MCH 25.9 MCHC 32.6 RDW 14.7 Plt Count 342 MPV 6.8 L Sodium 131 L Potassium 4.5 Chloride 101 Carbon Dioxide 22 Anion Gap 8 BUN 20.4 H Creatinine 1.7 H Est GFR (CKD-EPI)AfAm 30.45 Est GFR (CKD-EPI)NonAf 26.28 POC Glucometer 90 Random Glucose 144 H Hemoglobin A1c % Calcium 7.7 L Phosphorus 3.1 Magnesium 2.1 Iron TIBC Iron Saturation Unsaturated IBC Total Bilirubin 0.3 AST 18 ALT 17 Alkaline Phosphatase 46 Total Protein 6.0 L Albumin 2.4 L Triglycerides Cholesterol Total LDL Cholesterol HDL Cholesterol Vitamin B12 TSH 2.85 12/23/18 12/23/18 12/23/18 09:50 09:50 11:26 WBC RBC Hgb Hct MCV MCH MCHC RDW Plt Count MPV Sodium Potassium Chloride Carbon Dioxide Anion Gap BUN Creatinine Est GFR (CKD-EPI)AfAm Est GFR (CKD-EPI)NonAf POC Glucometer 155 Random Glucose Hemoglobin A1c % < 3.5 L Calcium Phosphorus Magnesium Iron 10 L TIBC 307 Iron Saturation 3 L Unsaturated IBC 297 H Total Bilirubin AST ALT Alkaline Phosphatase Total Protein Albumin Triglycerides 136 Cholesterol 104 Total LDL Cholesterol 62 HDL Cholesterol 21 L Vitamin B12 523 TSH 12/23/18 12/23/18 17:18 21:11 WBC RBC Hgb Hct MCV MCH MCHC RDW Plt Count MPV Sodium Potassium Chloride Carbon Dioxide Anion Gap BUN Creatinine Est GFR (CKD-EPI)AfAm Est GFR (CKD-EPI)NonAf POC Glucometer 116 189 Random Glucose Hemoglobin A1c % Calcium Phosphorus Magnesium Iron TIBC Iron Saturation Unsaturated IBC Total Bilirubin AST ALT Alkaline Phosphatase Total Protein Albumin Triglycerides Cholesterol Total LDL Cholesterol HDL Cholesterol Vitamin B12 TSH plan: bgm achs novolog scale ck hba1c diet nutrition for pureed foor
[2018-12-24] MEDS: SODIUM CHLORIDE 1,000 ML IV SCH ×2 (06:19→14:10)
[2018-12-24] MEDS: INSULIN SLIDING SCALE (NOVOLOG) 1 VIAL SQ SCH ×4 (06:20→23:59)
[2018-12-24 08:05] LABS: BASO % 1.2 % (0-2.0); EOS % 3.6 % (0-4.5); HEMATOCRIT 27.3 % (32.4-45.2); HEMOGLOBIN 9.2 GM/dL (10.7-15.3); LYMPH % 16.8 % (8-40); MCH 26.2 pg (25.7-33.7); MCHC 33.5 g/dl (32.0-36.0); MEAN CELL VOLUME 78.2 fl (80-96); MEAN PLT VOLUME 6.9 fl (7.5-11.1); MONO % 16.3 % (3.8-10.2); NEUT % 62.1 % (42.8-82.8); PLATELET COUNT 369 K/MM3 (134-434); RDW 14.8 % (11.6-15.6); WHITE BLOOD COUNT 5.6 K/mm3 (4.0-10.0)
[2018-12-24 08:30] LABS: ALBUMIN 2.5 g/dl (3.4-5.0); BILIRUBIN,TOTAL 0.3 mg/dL (0.2-1); BLOOD UREA NITROGEN 17.9 mg/dL (7-18); CALCIUM 7.8 mg/dL (8.5-10.1); CREATININE 1.6 mg/dL (0.55-1.3); POTASSIUM 4.6 mmol/L (3.5-5.1); TOT PROT 6.2 g/dl (6.4-8.2)
[2018-12-24] MEDS: INSULIN (LEVEMIR) 100 UNITS/ML UNITS SQ SCH (08:45)
[2018-12-24] MEDS ORDERED: DEXTROSE 5%-WATER - 50 ML IVPB ONE (09:21)
[2018-12-24] MEDS ORDERED: cefTRIAXone SODIUM 1 GM VIAL ONE (09:21)
[2018-12-24] MEDS ORDERED: PT OWN MED DRAWER 7, Y5N ONE (09:21)
[2018-12-24] MEDS: VALSARTAN 160 MG TABLET (UD) PO SCH (09:46)
[2018-12-24] MEDS: HEPARIN NA (PORCINE) 5,000 UNITS/ML 1ML VIAL SQ SCH (09:47)
[2018-12-24] MEDS: IRON POLYSACCHARIDES 150 MG CAPSULE PO SCH (09:47)
[2018-12-24] MEDS: NAPH,MB-DB/K PH,MBDB POWDER PACKET PO SCH (09:47)
[2018-12-24] MEDS: POLYETHYLENE GLYCOL 3350 119 GM BTL PO SCH (09:50)
[2018-12-24] MEDS: CEFTRIAXONE 1 GM in DEXTROSE 5%-WATER - 50 ML IVPB SCH (09:50)
[2018-12-24] MEDS ORDERED: INSULIN (NOVOLOG) ASPART 100 UNITS/ML 10ML VIAL ONE (11:52)
--- NOTE | 2018-12-24 12:07 | PN ---
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 - Current Medication List Current Medications: Active Medications Atorvastatin Calcium (Lipitor -) 10 mg PO HS [facility] Last Admin: 12/23/18 21:59 Dose: 10 mg Heparin Sodium (Porcine) (Heparin -) 5,000 unit SQ BID [facility] Last Admin: 12/24/18 09:47 Dose: 5,000 unit Sodium Chloride (Normal Saline -) 1,000 mls @ 60 mls/hr IV ASDIR [facility] Last Admin: 12/24/18 06:19 Dose: 60 mls/hr Ertapenem 0.5 gm/ Sodium (Chloride) 50 mls @ 100 mls/hr IVPB DAILY [facility] Insulin Aspart (Novolog Vial Sliding Scale -) 1 vial SQ ACHS [facility]; Protocol Last Admin: 12/24/18 11:59 Dose: Not Given Insulin Detemir (Levemir Vial) 7 units SQ AM [facility] Last Admin: 12/24/18 08:45 Dose: 7 units Polyethylene Glycol (Miralax (For Daily Use) -) 17 gm PO DAILY [facility] Last Admin: 12/24/18 09:50 Dose: 17 gm Polysaccharide Iron Complex (Niferex-150 -) 150 mg PO DAILY [facility] Last Admin: 12/24/18 09:47 Dose: 150 mg Potassium Phos/Sodium Phos (Phos-Nak Packet -) 1 packet PO BID [facility] Last Admin: 12/24/18 09:47 Dose: 1 packet Valsartan (Diovan -) 160 mg PO DAILY [facility] Last Admin: 12/24/18 09:46 Dose: 160 mg - Objective Vital Signs: Vital Signs Temperature 98.2 F 12/24/18 10:00 Pulse Rate 80 12/24/18 10:00 Respiratory Rate 18 12/24/18 10:00 Blood Pressure 162/77 12/24/18 10:00 O2 Sat by Pulse Oximetry (%) 95 12/24/18 09:00 Constitutional: Yes: No Distress Eyes: Yes: Conjunctiva Clear Cardiovascular: Yes: Regular Rate and Rhythm, S1, S2 Respiratory: Yes: CTA Bilaterally Gastrointestinal: Yes: Normal Bowel Sounds, Soft, Abdomen, Obese. No: Tenderness Labs: CBC, BMP 12/24/18 06:45 12/24/18 06:45 INR, PTT INR 1.13 (0.83-1.09) H 12/22/18 11:50 Assessment/Plan RECURRENT UTI + URINE C/S ESBL CKD OBS SUBSTITUTE ERTAPENEM CONTACT PRECAUTIONS
--- NOTE | 2018-12-24 13:00 | PN ---
Progress Note, Physician History of Present Illness: Pt seen and examined at bedside. She is awake and alert. She denies shortness of breath. - Current Medication List Current Medications: Active Medications Atorvastatin Calcium (Lipitor -) 10 mg PO HS [facility] Last Admin: 12/23/18 21:59 Dose: 10 mg Heparin Sodium (Porcine) (Heparin -) 5,000 unit SQ BID [facility] Last Admin: 12/24/18 09:47 Dose: 5,000 unit Sodium Chloride (Normal Saline -) 1,000 mls @ 60 mls/hr IV ASDIR [facility] Last Admin: 12/24/18 06:19 Dose: 60 mls/hr Ertapenem 0.5 gm/ Sodium (Chloride) 50 mls @ 100 mls/hr IVPB DAILY [facility] Insulin Aspart (Novolog Vial Sliding Scale -) 1 vial SQ ACHS [facility]; Protocol Last Admin: 12/24/18 11:59 Dose: Not Given Insulin Detemir (Levemir Vial) 7 units SQ AM [facility] Last Admin: 12/24/18 08:45 Dose: 7 units Polyethylene Glycol (Miralax (For Daily Use) -) 17 gm PO DAILY [facility] Last Admin: 12/24/18 09:50 Dose: 17 gm Polysaccharide Iron Complex (Niferex-150 -) 150 mg PO DAILY [facility] Last Admin: 12/24/18 09:47 Dose: 150 mg Potassium Phos/Sodium Phos (Phos-Nak Packet -) 1 packet PO BID [facility] Last Admin: 12/24/18 09:47 Dose: 1 packet Valsartan (Diovan -) 160 mg PO DAILY [facility] Last Admin: 12/24/18 09:46 Dose: 160 mg - Objective Vital Signs: Vital Signs Temperature 98.2 F 12/24/18 10:00 Pulse Rate 80 12/24/18 10:00 Respiratory Rate 18 12/24/18 10:00 Blood Pressure 162/77 12/24/18 10:00 O2 Sat by Pulse Oximetry (%) 95 12/24/18 09:00 Constitutional: Yes: Calm Eyes: Yes: Conjunctiva Clear HENT: Yes: Atraumatic Neck: Yes: Supple Cardiovascular: Yes: S1, S2 Respiratory: Yes: CTA Bilaterally Gastrointestinal: Yes: Soft, Abdomen, Obese Genitourinary: Yes: Incontinence Musculoskeletal: Yes: WNL Edema: LLE: Trace, RLE: Trace Neurological: Yes: Oriented Psychiatric: Yes: Oriented Labs: CBC, BMP 12/24/18 06:45 12/24/18 06:45 INR, PTT INR 1.13 (0.83-1.09) H 12/22/18 11:50 Problem List - Problems (1) KT (acute kidney injury) Code(s): N17.9 - ACUTE KIDNEY FAILURE, UNSPECIFIED (2) Hyponatremia Code(s): E87.1 - HYPO-OSMOLALITY AND HYPONATREMIA (3) Chronic kidney disease (CKD) Code(s): N18.9 - CHRONIC KIDNEY DISEASE, UNSPECIFIED Qualifiers: Qualified Code(s): N18.1 - Chronic kidney disease, stage 1 Assessment/Plan Current Medications Generic Name Dose Route Start Last Admin Trade Name Freq PRN Reason Stop Dose Admin Atorvastatin Calcium 10 mg 12/22/18 22:00 12/23/18 21:59 Lipitor - PO 10 mg HS [facility] Administration Heparin Sodium (Porcine) 5,000 unit 12/22/18 22:00 12/24/18 09:47 Heparin - SQ 5,000 unit BID [facility] Administration Sodium Chloride 1,000 mls @ 60 mls/hr 12/23/18 12:46 12/24/18 06:19 Normal Saline - IV 60 mls/hr ASDIR [facility] Administration Ertapenem 0.5 gm/ Sodium 50 mls @ 100 mls/hr 12/24/18 12:15 Chloride IVPB DAILY [facility] Insulin Aspart 1 vial 12/22/18 22:00 12/24/18 11:59 Novolog Vial Sliding Scale - SQ Not Given ACHS [facility] Protocol Insulin Detemir 7 units 12/24/18 07:00 12/24/18 08:45 Levemir Vial SQ 7 units AM [facility] Administration Polyethylene Glycol 17 gm 12/24/18 10:00 12/24/18 09:50 Miralax (For Daily Use) - PO 17 gm DAILY [facility] Administration Polysaccharide Iron Complex 150 mg 12/23/18 12:30 12/24/18 09:47 Niferex-150 - PO 150 mg DAILY [facility] Administration Potassium Phos/Sodium Phos 1 packet 12/22/18 22:00 12/24/18 09:47 Phos-Nak Packet - PO 1 packet BID [facility] Administration Valsartan 160 mg 12/23/18 12:45 12/24/18 09:46 Diovan - PO 160 mg DAILY [facility] Administration Impression 1. TK 2. CKD 3. HTN 4. hyponatremia 5. nsaid use 6. UTI 7. dementia 8. dvt Plan - cont diovan - sodium improving - can add hydralazine - monitor bp - decrease rate of fluids - cont abx for uti - hold calcium channel mandy as it may contribute to edema - d/c diclofenac and avoid nsaids
--- NOTE | 2018-12-24 13:03 | PN ---
Progress Note, Physician Chief Complaint: Weakness UTI-ESBL TK Hyponatremia History of Present Illness: NAD in bed - Current Medication List Current Medications: Active Medications Atorvastatin Calcium (Lipitor -) 10 mg PO HS [facility] Last Admin: 12/23/18 21:59 Dose: 10 mg Heparin Sodium (Porcine) (Heparin -) 5,000 unit SQ BID [facility] Last Admin: 12/24/18 09:47 Dose: 5,000 unit Sodium Chloride (Normal Saline -) 1,000 mls @ 60 mls/hr IV ASDIR [facility] Last Admin: 12/24/18 06:19 Dose: 60 mls/hr Ertapenem 0.5 gm/ Sodium (Chloride) 50 mls @ 100 mls/hr IVPB DAILY [facility] Insulin Aspart (Novolog Vial Sliding Scale -) 1 vial SQ ACHS [facility]; Protocol Last Admin: 12/24/18 11:59 Dose: Not Given Insulin Detemir (Levemir Vial) 7 units SQ AM [facility] Last Admin: 12/24/18 08:45 Dose: 7 units Polyethylene Glycol (Miralax (For Daily Use) -) 17 gm PO DAILY [facility] Last Admin: 12/24/18 09:50 Dose: 17 gm Polysaccharide Iron Complex (Niferex-150 -) 150 mg PO DAILY [facility] Last Admin: 12/24/18 09:47 Dose: 150 mg Potassium Phos/Sodium Phos (Phos-Nak Packet -) 1 packet PO BID [facility] Last Admin: 12/24/18 09:47 Dose: 1 packet Valsartan (Diovan -) 160 mg PO DAILY [facility] Last Admin: 12/24/18 09:46 Dose: 160 mg - Objective Vital Signs: Vital Signs Temperature 98.2 F 12/24/18 10:00 Pulse Rate 80 12/24/18 10:00 Respiratory Rate 18 12/24/18 10:00 Blood Pressure 162/77 12/24/18 10:00 O2 Sat by Pulse Oximetry (%) 95 12/24/18 09:00 Constitutional: Yes: Well Nourished, No Distress, Calm Cardiovascular: Yes: Regular Rate and Rhythm Respiratory: Yes: Regular Gastrointestinal: Yes: WNL, Normal Bowel Sounds, Soft Musculoskeletal: Yes: Muscle Weakness Extremities: Yes: WNL Edema: No Peripheral Pulses WNL: Yes Neurological: Yes: Alert, Oriented Psychiatric: Yes: Alert, Oriented Labs: CBC, BMP 12/24/18 06:45 12/24/18 06:45 INR, PTT INR 1.13 (0.83-1.09) H 12/22/18 11:50 Problem List - Problems (1) TK (acute kidney injury) Assessment/Plan: -2/2 to UTI -UC + ESBL -Nephrology on board -Continue NS -IV abx -Monitor trend Problems reviewed: Yes Code(s): N17.9 - ACUTE KIDNEY FAILURE, UNSPECIFIED (2) Hyponatremia Assessment/Plan: -improved -IVF-NS @ 60 cc/hr -Nephrology consult -Monitor trend Problems reviewed: Yes Code(s): E87.1 - HYPO-OSMOLALITY AND HYPONATREMIA (3) UTI (urinary tract infection) Assessment/Plan: -ID consult -IV abx -UC +ESBL -Contact isolation Problems reviewed: Yes Code(s): N39.0 - URINARY TRACT INFECTION, SITE NOT SPECIFIED Qualifiers: Urinary tract infection type: acute cystitis Hematuria presence: without hematuria Qualified Code(s): N30.00 - Acute cystitis without hematuria (4) Weakness Assessment/Plan: -likely 2/2 to UTI -Physical therapy Problems reviewed: Yes Code(s): R53.1 - WEAKNESS (5) Anemia Assessment/Plan: -JULIA -Started on polysaccharide 1 tab po daily -Stool OB pending -B12+ thyroid profile normal -monitor trend Problems reviewed: Yes Code(s): D64.9 - ANEMIA, UNSPECIFIED (6) Diabetes Assessment/Plan: -A1c-8.4 -Endocrine consult -Diabetic pureed diet -BGM AC HS -ISS -Started on Levemir Problems reviewed: Yes Code(s): E11.9 - TYPE 2 DIABETES MELLITUS WITHOUT COMPLICATIONS Qualifiers: Diabetes mellitus type: type 2 Diabetes mellitus intermediate school 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
[2018-12-24] MEDS: ERTAPENEM SODIUM 0.5 GM in SODIUM CHLORIDE 50 ML IVPB SCH (14:10)
[2018-12-24] MEDS: hydrALAZINE HCL 10 MG TABLET PO SCH (14:13)
--- NOTE | 2018-12-24 23:10 | PN ---
Progress Note, Physician Chief Complaint: no complaint eating well yet no dentures - Current Medication List Current Medications: Active Medications Atorvastatin Calcium (Lipitor -) 10 mg PO HS [facility] Last Admin: 12/23/18 21:59 Dose: 10 mg Heparin Sodium (Porcine) (Heparin -) 5,000 unit SQ BID [facility] Last Admin: 12/24/18 09:47 Dose: 5,000 unit Hydralazine HCl (Apresoline -) 10 mg PO BID [facility] Last Admin: 12/24/18 14:13 Dose: 10 mg Ertapenem 0.5 gm/ Sodium (Chloride) 50 mls @ 100 mls/hr IVPB DAILY [facility] Last Admin: 12/24/18 14:10 Dose: 100 mls/hr Sodium Chloride (Normal Saline -) 1,000 mls @ 42 mls/hr IV ASDIR [facility] Last Admin: 12/24/18 14:10 Dose: 42 mls/hr Insulin Aspart (Novolog Vial Sliding Scale -) 1 vial SQ ACHS [facility]; Protocol Last Admin: 12/24/18 17:37 Dose: Not Given Insulin Detemir (Levemir Vial) 7 units SQ AM [facility] Last Admin: 12/24/18 08:45 Dose: 7 units Polyethylene Glycol (Miralax (For Daily Use) -) 17 gm PO DAILY [facility] Last Admin: 12/24/18 09:50 Dose: 17 gm Polysaccharide Iron Complex (Niferex-150 -) 150 mg PO DAILY [facility] Last Admin: 12/24/18 09:47 Dose: 150 mg Potassium Phos/Sodium Phos (Phos-Nak Packet -) 1 packet PO BID [facility] Last Admin: 12/24/18 09:47 Dose: 1 packet Valsartan (Diovan -) 160 mg PO DAILY [facility] Last Admin: 12/24/18 09:46 Dose: 160 mg - Objective Vital Signs: Vital Signs Temperature 98.5 F 12/24/18 18:00 Pulse Rate 88 12/24/18 18:00 Respiratory Rate 18 12/24/18 18:00 Blood Pressure 177/80 H 12/24/18 18:00 O2 Sat by Pulse Oximetry (%) 95 12/24/18 09:00 Constitutional: Yes: Calm Eyes: Yes: EOM Intact HENT: Yes: Normocephalic Neck: Yes: Trachea Midline Cardiovascular: Yes: Regular Rate and Rhythm Respiratory: Yes: CTA Bilaterally Gastrointestinal: Yes: Normal Bowel Sounds Genitourinary: Yes: WNL Breast(s): Yes: WNL Musculoskeletal: Yes: WNL Extremities: Yes: WNL Edema: No Neurological: Yes: Alert, Oriented Labs: CBC, BMP 12/24/18 06:45 12/24/18 06:45 INR, PTT INR 1.13 (0.83-1.09) H 12/22/18 11:50 Problem List - Problems (1) Elevated serum creatinine Code(s): R79.89 - OTHER SPECIFIED ABNORMAL FINDINGS OF BLOOD CHEMISTRY (2) TK (acute kidney injury) Problems reviewed: Yes Code(s): N17.9 - ACUTE KIDNEY FAILURE, UNSPECIFIED (3) Anemia Problems reviewed: Yes Code(s): D64.9 - ANEMIA, UNSPECIFIED (4) Elevated BUN Code(s): R79.9 - ABNORMAL FINDING OF BLOOD CHEMISTRY, UNSPECIFIED (5) Hyponatremia Code(s): E87.1 - HYPO-OSMOLALITY AND HYPONATREMIA (6) Weakness Code(s): R53.1 - WEAKNESS (7) UTI (urinary tract infection) Code(s): N39.0 - URINARY TRACT INFECTION, SITE NOT SPECIFIED Qualifiers: Urinary tract infection type: acute cystitis Hematuria presence: without hematuria Qualified Code(s): N30.00 - Acute cystitis without hematuria Assessment/Plan Current Active Problems TK (acute kidney injury) (Acute) Anemia (Acute) Elevated BUN (Acute) Elevated serum creatinine (Acute) Hyponatremia (Acute) UTI (urinary tract infection) (Acute) Weakness (Acute) Abnormal Lab Results 12/24/18 12/24/18 12/24/18 06:45 06:45 06:45 RBC 3.50 L Hgb 9.2 L Hct 27.3 L MCV 78.2 L MPV 6.9 L Monocytes % 16.3 H D Sodium 133 L Creatinine 1.6 H Hemoglobin A1c % 8.4 H Calcium 7.8 L Total Protein 6.2 L Albumin 2.5 L Laboratory Results - last 24 hr 12/24/18 12/24/18 12/24/18 05:55 06:45 06:45 WBC RBC Hgb Hct MCV MCH MCHC RDW Plt Count MPV Absolute Neuts (auto) Neutrophils % Lymphocytes % Monocytes % Eosinophils % Basophils % Nucleated RBC % Sodium 133 L Potassium 4.6 Chloride 104 Carbon Dioxide 22 Anion Gap 8 BUN 17.9 Creatinine 1.6 H Est GFR (CKD-EPI)AfAm 32.77 Est GFR (CKD-EPI)NonAf 28.27 POC Glucometer 113 Random Glucose 101 Hemoglobin A1c % 8.4 H Calcium 7.8 L Ferritin 48.4 Total Bilirubin 0.3 AST 19 ALT 19 Alkaline Phosphatase 49 Total Protein 6.2 L Albumin 2.5 L 12/24/18 12/24/18 12/24/18 06:45 11:57 17:33 WBC 5.6 RBC 3.50 L Hgb 9.2 L Hct 27.3 L MCV 78.2 L MCH 26.2 MCHC 33.5 RDW 14.8 Plt Count 369 MPV 6.9 L Absolute Neuts (auto) 3.5 Neutrophils % 62.1 D Lymphocytes % 16.8 D Monocytes % 16.3 H D Eosinophils % 3.6 D Basophils % 1.2 Nucleated RBC % 0 Sodium Potassium Chloride Carbon Dioxide Anion Gap BUN Creatinine Est GFR (CKD-EPI)AfAm Est GFR (CKD-EPI)NonAf POC Glucometer 193 171 Random Glucose Hemoglobin A1c % Calcium Ferritin Total Bilirubin AST ALT Alkaline Phosphatase Total Protein Albumin plan: chopped diet levemir 7 units am titration needed as diet improves
[2018-12-25] MEDS: hydrALAZINE HCL 10 MG TABLET PO SCH ×3 (00:08→22:04)
[2018-12-25] MEDS: ATORVASTATIN CA 10 MG TABLET (FP) PO SCH ×2 (00:08→22:04)
[2018-12-25] MEDS: HEPARIN NA (PORCINE) 5,000 UNITS/ML 1ML VIAL SQ SCH ×3 (00:09→22:05)
[2018-12-25] MEDS: NAPH,MB-DB/K PH,MBDB POWDER PACKET PO SCH ×3 (00:09→22:07)
[2018-12-25] MEDS: SODIUM CHLORIDE 1,000 ML IV SCH ×3 (04:38→17:38)
[2018-12-25] MEDS ORDERED: INSULIN (NOVOLOG) ASPART 100 UNITS/ML 10ML VIAL ONE (07:05)
[2018-12-25] MEDS: INSULIN SLIDING SCALE (NOVOLOG) 1 VIAL SQ SCH ×4 (07:32→22:07)
[2018-12-25] MEDS: ERTAPENEM SODIUM 0.5 GM in SODIUM CHLORIDE 50 ML IVPB SCH (11:31)
[2018-12-25] MEDS: POLYETHYLENE GLYCOL 3350 119 GM BTL PO SCH (11:32)
[2018-12-25] MEDS: VALSARTAN 160 MG TABLET (UD) PO SCH (11:34)
[2018-12-25] MEDS: INSULIN (LEVEMIR) 100 UNITS/ML UNITS SQ SCH (12:03)
--- NOTE | 2018-12-25 14:33 | PN ---
Progress Note, Physician History of Present Illness: Pt seen and examined at bedside. She is awake and appears comfortable. - Current Medication List Current Medications: Active Medications Atorvastatin Calcium (Lipitor -) 10 mg PO HS [facility] Last Admin: 12/25/18 00:08 Dose: 10 mg Heparin Sodium (Porcine) (Heparin -) 5,000 unit SQ BID [facility] Last Admin: 12/25/18 11:30 Dose: 5,000 unit Hydralazine HCl (Apresoline -) 10 mg PO BID [facility] Last Admin: 12/25/18 11:29 Dose: 10 mg Ertapenem 0.5 gm/ Sodium (Chloride) 50 mls @ 100 mls/hr IVPB DAILY [facility] Last Admin: 12/25/18 11:31 Dose: 100 mls/hr Sodium Chloride (Normal Saline -) 1,000 mls @ 42 mls/hr IV ASDIR [facility] Last Admin: 12/25/18 04:38 Dose: 42 mls/hr Insulin Aspart (Novolog Vial Sliding Scale -) 1 vial SQ ACHS [facility]; Protocol Last Admin: 12/25/18 12:03 Dose: Not Given Insulin Detemir (Levemir Vial) 7 units SQ AM [facility] Last Admin: 12/25/18 12:03 Dose: 7 units Polyethylene Glycol (Miralax (For Daily Use) -) 17 gm PO DAILY [facility] Last Admin: 12/25/18 11:32 Dose: 17 gm Polysaccharide Iron Complex (Niferex-150 -) 150 mg PO DAILY [facility] Last Admin: 12/24/18 09:47 Dose: 150 mg Potassium Phos/Sodium Phos (Phos-Nak Packet -) 1 packet PO BID [facility] Last Admin: 12/25/18 11:30 Dose: 1 packet Valsartan (Diovan -) 160 mg PO DAILY [facility] Last Admin: 12/25/18 11:34 Dose: 160 mg - Objective Vital Signs: Vital Signs Temperature 98.7 F 12/25/18 07:00 Pulse Rate 56 L 12/25/18 07:00 Respiratory Rate 18 12/25/18 07:00 Blood Pressure 150/78 12/25/18 07:00 O2 Sat by Pulse Oximetry (%) 97 12/24/18 21:00 Constitutional: Yes: Calm Eyes: Yes: Conjunctiva Clear HENT: Yes: Atraumatic Neck: Yes: Supple Cardiovascular: Yes: S1, S2 Respiratory: Yes: CTA Bilaterally Gastrointestinal: Yes: Soft Genitourinary: Yes: WNL Musculoskeletal: Yes: WNL Edema: No Neurological: Yes: Oriented Labs: CBC, BMP 12/24/18 06:45 12/24/18 06:45 INR, PTT INR 1.13 (0.83-1.09) H 12/22/18 11:50 Problem List - Problems (1) TK (acute kidney injury) Code(s): N17.9 - ACUTE KIDNEY FAILURE, UNSPECIFIED (2) Hyponatremia Code(s): E87.1 - HYPO-OSMOLALITY AND HYPONATREMIA (3) Chronic kidney disease (CKD) Code(s): N18.9 - CHRONIC KIDNEY DISEASE, UNSPECIFIED Qualifiers: Chronic kidney disease stage: stage 1 Qualified Code(s): N18.1 - Chronic kidney disease, stage 1 Assessment/Plan Current Medications Generic Name Dose Route Start Last Admin Trade Name Freq PRN Reason Stop Dose Admin Atorvastatin Calcium 10 mg 12/22/18 22:00 12/25/18 00:08 Lipitor - PO 10 mg HS [facility] Administration Heparin Sodium (Porcine) 5,000 unit 12/22/18 22:00 12/25/18 11:30 Heparin - SQ 5,000 unit BID [facility] Administration Hydralazine HCl 10 mg 12/24/18 13:00 12/25/18 11:29 Apresoline - PO 10 mg BID [facility] Administration Ertapenem 0.5 gm/ Sodium 50 mls @ 100 mls/hr 12/24/18 12:15 12/25/18 11:31 Chloride IVPB 100 mls/hr DAILY [facility] Administration Sodium Chloride 1,000 mls @ 42 mls/hr 12/24/18 13:00 12/25/18 04:38 Normal Saline - IV 42 mls/hr ASDIR [facility] Administration Insulin Aspart 1 vial 12/22/18 22:00 12/25/18 12:03 Novolog Vial Sliding Scale - SQ Not Given ACHS [facility] Protocol Insulin Detemir 7 units 12/24/18 07:00 12/25/18 12:03 Levemir Vial SQ 7 units AM [facility] Administration Polyethylene Glycol 17 gm 12/24/18 10:00 12/25/18 11:32 Miralax (For Daily Use) - PO 17 gm DAILY [facility] Administration Polysaccharide Iron Complex 150 mg 12/23/18 12:30 12/24/18 09:47 Niferex-150 - PO 150 mg DAILY [facility] Administration Potassium Phos/Sodium Phos 1 packet 12/22/18 22:00 12/25/18 11:30 Phos-Nak Packet - PO 1 packet BID [facility] Administration Valsartan 160 mg 12/23/18 12:45 12/25/18 11:34 Diovan - PO 160 mg DAILY [facility] Administration Impression 1. TK 2. CKD 3. HTN 4. hyponatremia 5. nsaid use 6. UTI 7. dementia 8. dvt Plan - check bmo in am - d/c saline - increase hydralazine - monitor bp - cont abx for uti - amlodipine on hold - d/c diclofenac and avoid nsaids
[2018-12-25] MEDS: IRON POLYSACCHARIDES 150 MG CAPSULE PO SCH (14:53)
--- NOTE | 2018-12-25 15:23 | PN ---
Progress Note, Physician Chief Complaint: ESBL ecoli - Current Medication List Current Medications: Active Medications Atorvastatin Calcium (Lipitor -) 10 mg PO HS [facility] Last Admin: 12/25/18 00:08 Dose: 10 mg Heparin Sodium (Porcine) (Heparin -) 5,000 unit SQ BID [facility] Last Admin: 12/25/18 11:30 Dose: 5,000 unit Hydralazine HCl (Apresoline -) 20 mg PO BID [facility] Ertapenem 0.5 gm/ Sodium (Chloride) 50 mls @ 100 mls/hr IVPB DAILY [facility] Last Admin: 12/25/18 11:31 Dose: 100 mls/hr Insulin Aspart (Novolog Vial Sliding Scale -) 1 vial SQ ACHS [facility]; Protocol Last Admin: 12/25/18 12:03 Dose: Not Given Insulin Detemir (Levemir Vial) 7 units SQ AM [facility] Last Admin: 12/25/18 12:03 Dose: 7 units Polyethylene Glycol (Miralax (For Daily Use) -) 17 gm PO DAILY [facility] Last Admin: 12/25/18 11:32 Dose: 17 gm Polysaccharide Iron Complex (Niferex-150 -) 150 mg PO DAILY [facility] Last Admin: 12/25/18 14:53 Dose: 150 mg Potassium Phos/Sodium Phos (Phos-Nak Packet -) 1 packet PO BID [facility] Last Admin: 12/25/18 11:30 Dose: 1 packet Valsartan (Diovan -) 160 mg PO DAILY [facility] Last Admin: 12/25/18 11:34 Dose: 160 mg - Objective Vital Signs: Vital Signs Temperature 98.7 F 12/25/18 07:00 Pulse Rate 56 L 12/25/18 07:00 Respiratory Rate 18 12/25/18 07:00 Blood Pressure 150/78 12/25/18 07:00 O2 Sat by Pulse Oximetry (%) 97 12/24/18 21:00 Constitutional: Yes: Calm Cardiovascular: Yes: Regular Rate and Rhythm, S1, S2 Respiratory: Yes: CTA Bilaterally Gastrointestinal: Yes: Normal Bowel Sounds, Soft Labs: CBC, BMP 12/24/18 06:45 12/24/18 06:45 INR, PTT INR 1.13 (0.83-1.09) H 12/22/18 11:50 Problem List - Problems (1) Hyponatremia Assessment/Plan: ivf dc recheck sodium in AM renal on board check tsh Code(s): E87.1 - HYPO-OSMOLALITY AND HYPONATREMIA (2) TK (acute kidney injury) Assessment/Plan: ivf stop creatinine decreasing Code(s): N17.9 - ACUTE KIDNEY FAILURE, UNSPECIFIED (3) Diabetes Assessment/Plan: bgm sliding scale insulin hba1c 8.4 Code(s): E11.9 - TYPE 2 DIABETES MELLITUS WITHOUT COMPLICATIONS Qualifiers: Diabetes mellitus type: type 2 Diabetes mellitus 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 Diabetes mellitus complication status: with neurologic complications Diabetes mellitus complication detail: with unspecified neuropathy Qualified Code(s): E11.40 - Type 2 diabetes mellitus with diabetic neuropathy, unspecified (4) UTI (urinary tract infection) Assessment/Plan: Microbiology 12/22/18 11:50 Urine - Urine - Catheterized Urine Culture - Final Escherichia Coli Esbl Shop Coordinator ertrapenem Code(s): N39.0 - URINARY TRACT INFECTION, SITE NOT SPECIFIED Qualifiers: Urinary tract infection type: acute cystitis Hematuria presence: without hematuria Qualified Code(s): N30.00 - Acute cystitis without hematuria
[2018-12-25] MEDS ORDERED: ALBUTEROL SO4 0.083% IH SOL 2.5 MG/3 ML VIAL.NEB. NEB ONE (16:45)
[2018-12-25] MEDS ORDERED: ALBUTEROL SO4 0.083% IH SOL 2.5 MG/3 ML VIAL.NEB. NEB PRN (16:45)
[2018-12-25] MEDS ORDERED: FUROSEMIDE 40 MG/4 ML INJECTABLE VIAL IVPUSH ONE (16:45)
[2018-12-26] MEDS: INSULIN SLIDING SCALE (NOVOLOG) 1 VIAL SQ SCH ×2 (06:40→11:49)
[2018-12-26] MEDS ORDERED: INSULIN (NOVOLOG) ASPART 100 UNITS/ML 10ML VIAL ONE (08:25)
[2018-12-26] MEDS: INSULIN (LEVEMIR) 100 UNITS/ML UNITS SQ SCH (08:31)
[2018-12-26 09:07] LABS: ALBUMIN 2.6 g/dl (3.4-5.0); BILIRUBIN,TOTAL 0.2 mg/dL (0.2-1); BLOOD UREA NITROGEN 23.4 mg/dL (7-18); CALCIUM 8.9 mg/dL (8.5-10.1); CREATININE 1.8 mg/dL (0.55-1.3); POTASSIUM 4.8 mmol/L (3.5-5.1); TOT PROT 6.6 g/dl (6.4-8.2)
[2018-12-26] MEDS: hydrALAZINE HCL 10 MG TABLET PO SCH (10:43)
[2018-12-26] MEDS: HEPARIN NA (PORCINE) 5,000 UNITS/ML 1ML VIAL SQ SCH (10:43)
[2018-12-26] MEDS: VALSARTAN 160 MG TABLET (UD) PO SCH (10:43)
[2018-12-26] MEDS: POLYETHYLENE GLYCOL 3350 119 GM BTL PO SCH (10:44)
[2018-12-26] MEDS: NAPH,MB-DB/K PH,MBDB POWDER PACKET PO SCH (10:44)
[2018-12-26] MEDS: IRON POLYSACCHARIDES 150 MG CAPSULE PO SCH (10:45)
[2018-12-26] MEDS: ERTAPENEM SODIUM 0.5 GM in SODIUM CHLORIDE 50 ML IVPB SCH (10:48)
--- NOTE | 2018-12-26 13:51 | DS ---
Physical Examination Vital Signs: Vital Signs Temperature 98.2 F 12/26/18 09:30 Pulse Rate 93 H 12/26/18 09:30 Respiratory Rate 18 12/26/18 09:30 Blood Pressure 134/75 12/26/18 09:30 O2 Sat by Pulse Oximetry (%) 96 12/25/18 21:00 Constitutional: Yes: Calm Cardiovascular: Yes: Regular Rate and Rhythm, S1, S2 Respiratory: Yes: CTA Bilaterally Gastrointestinal: Yes: Normal Bowel Sounds, Soft Labs: CBC, BMP 12/24/18 06:45 12/26/18 08:00 Discharge Summary Problems reviewed: Yes Reason For Visit: UTI WEAKNESS Current Active Problems TK (acute kidney injury) (Acute) Anemia (Acute) Elevated BUN (Acute) Elevated serum creatinine (Acute) Hyponatremia (Acute) UTI (urinary tract infection) (Acute) Weakness (Acute) Hospital Course: came in for weakness History of Present Illness: 88y F hx of dementia, ckd, hyponatremia, dvt, presents with generalized weakness. Family notes that the patient has been more generally weak than usual starting this weekend. The patient usually needs some assistance with ambulation however she required more assistance than usual there is no other focal complaints including fever, chills, obvious discomfort, nausea, vomiting, diarrhea, foul-smelling urine. The family has had a history of UTIs in the past. per famly the patient has been having loose BM for two days and got very weak, no fever no chills in ER found to be hyponatremic with low magnesium and phosphorous found to have uti on iv abx now change to oral abx nad will go home Condition: Stable - Instructions Disposition: HOME - Home Medications Comprehensive Discharge Medication List: Ambulatory Orders Acetaminophen [Pain Relief] 500 mg PO QID PRN 12/23/18 Amlodipine Bes/Olmesartan Med [Amlodipine-Olmesartan 10-20 mg] 1 tab PO DAILY Ammonium Lactate Cream [Lac-Hydrin 12% *Cream*] 1 applic TP BID 12/23/18 Aspirin Coated [Ecotrin -] 81 mg PO DAILY 12/23/18 Atorvastatin Ca [Lipitor] 10 mg PO HS 12/23/18 Betamethasone Dipropionate [Diprolene] 1 applic TP BID 12/23/18 Calcium Carbonate/Vitamin D3 [Calcium 500-Vit D3 400 Chew Tb] 1 tab.chew PO BID 12/23/18 Diclofenac Sodium [Voltaren] 100 gm TP BID 12/23/18 Fenofibrate,Micronized [Antara] 90 mg PO DAILY 12/23/18 Ferrous Sulfate 325 mg PO DAILY 12/23/18 Folic Acid 1 mg PO DAILY 12/23/18 Furosemide [Lasix] 20 mg PO DAILY 12/23/18 Gabapentin [Neurontin] 100 mg PO TID 12/23/18 Glipizide 10 mg PO BIDAC 12/23/18 Icosapent Ethyl [Vascepa] 2 gm PO BID 12/23/18 Insulin Glargine,Hum.rec.anlog [Nimco Galindo] 300 unit SQ ACDIN 12/23/18 Insulin Lispro [Humalog] See Protocol SQ PRN 12/23/18 Linaclotide [Linzess] 145 mcg PO DAILY 12/23/18 Nebivolol HCl [Bystolic] 10 mg PO DAILY 12/23/18 Nystatin Powder [Nystop Topical Powder -] 15 gm TP BID 12/23/18 Thiamine HCl [B-1] 100 mg PO DAILY 12/23/18
--- NOTE | 2018-12-26 13:59 | PN ---
Progress Note, Physician History of Present Illness: AWAKE, ALERT IN BED OFFERS NO COMPLAINTS VIA CERTIFICATION OFFICER DENIES DYSURIA AFEBRILE - Current Medication List Current Medications: Active Medications Albuterol Sulfate (Ventolin 0.083% Nebulizer Soln -) 1 amp NEB Q6H PRN PRN Reason: SHORT OF BREATH/WHEEZING Atorvastatin Calcium (Lipitor -) 10 mg PO HS [facility] Last Admin: 12/25/18 22:04 Dose: 10 mg Heparin Sodium (Porcine) (Heparin -) 5,000 unit SQ BID [facility] Last Admin: 12/26/18 10:43 Dose: 5,000 unit Hydralazine HCl (Apresoline -) 20 mg PO BID [facility] Last Admin: 12/26/18 10:43 Dose: 20 mg Ertapenem 0.5 gm/ Sodium (Chloride) 50 mls @ 100 mls/hr IVPB DAILY [facility] Last Admin: 12/26/18 10:48 Dose: 100 mls/hr Insulin Aspart (Novolog Vial Sliding Scale -) 1 vial SQ ACHS [facility]; Protocol Last Admin: 12/26/18 11:49 Dose: 2 units Insulin Detemir (Levemir Vial) 7 units SQ AM [facility] Last Admin: 12/26/18 08:31 Dose: 7 units Polyethylene Glycol (Miralax (For Daily Use) -) 17 gm PO DAILY [facility] Last Admin: 12/26/18 10:44 Dose: 17 gm Polysaccharide Iron Complex (Niferex-150 -) 150 mg PO DAILY [facility] Last Admin: 12/26/18 10:45 Dose: 150 mg Potassium Phos/Sodium Phos (Phos-Nak Packet -) 1 packet PO BID [facility] Last Admin: 12/26/18 10:44 Dose: 1 packet Valsartan (Diovan -) 160 mg PO DAILY [facility] Last Admin: 12/26/18 10:43 Dose: 160 mg - Objective Vital Signs: Vital Signs Temperature 98.2 F 12/26/18 09:30 Pulse Rate 93 H 12/26/18 09:30 Respiratory Rate 18 12/26/18 09:30 Blood Pressure 134/75 12/26/18 09:30 O2 Sat by Pulse Oximetry (%) 96 12/25/18 21:00 Constitutional: Yes: No Distress, Obese Cardiovascular: Yes: Regular Rate and Rhythm, S1, S2 Respiratory: Yes: CTA Bilaterally Gastrointestinal: Yes: Normal Bowel Sounds, Soft. No: Tenderness Edema: No Labs: CBC, BMP 12/24/18 06:45 12/26/18 08:00 INR, PTT INR 1.13 (0.83-1.09) H 12/22/18 11:50 Assessment/Plan RECURRENT UTI + URINE C/S ESBL CKD OBS SUBSTITUTE MACROBID 100MG PO BID X 7D
--- NOTE | 2018-12-26 15:48 | PN ---
Progress Note, Physician History of Present Illness: Pt seen and examined at bedside. She is awake and alert. She denies shortness of breath. - Current Medication List Current Medications: Active Medications Albuterol Sulfate (Ventolin 0.083% Nebulizer Soln -) 1 amp NEB Q6H PRN PRN Reason: SHORT OF BREATH/WHEEZING Atorvastatin Calcium (Lipitor -) 10 mg PO HS [facility] Last Admin: 12/25/18 22:04 Dose: 10 mg Heparin Sodium (Porcine) (Heparin -) 5,000 unit SQ BID [facility] Last Admin: 12/26/18 10:43 Dose: 5,000 unit Hydralazine HCl (Apresoline -) 20 mg PO BID [facility] Last Admin: 12/26/18 10:43 Dose: 20 mg Ertapenem 0.5 gm/ Sodium (Chloride) 50 mls @ 100 mls/hr IVPB DAILY [facility] Last Admin: 12/26/18 10:48 Dose: 100 mls/hr Insulin Aspart (Novolog Vial Sliding Scale -) 1 vial SQ ACHS [facility]; Protocol Last Admin: 12/26/18 11:49 Dose: 2 units Insulin Detemir (Levemir Vial) 7 units SQ AM [facility] Last Admin: 12/26/18 08:31 Dose: 7 units Nystatin (Mycostatin Cream -) 1 applic TP BID [facility] Polyethylene Glycol (Miralax (For Daily Use) -) 17 gm PO DAILY [facility] Last Admin: 12/26/18 10:44 Dose: 17 gm Polysaccharide Iron Complex (Niferex-150 -) 150 mg PO DAILY [facility] Last Admin: 12/26/18 10:45 Dose: 150 mg Potassium Phos/Sodium Phos (Phos-Nak Packet -) 1 packet PO BID [facility] Last Admin: 12/26/18 10:44 Dose: 1 packet Valsartan (Diovan -) 160 mg PO DAILY [facility] Last Admin: 12/26/18 10:43 Dose: 160 mg - Objective Vital Signs: Vital Signs Temperature 98.2 F 12/26/18 09:30 Pulse Rate 93 H 12/26/18 09:30 Respiratory Rate 18 12/26/18 09:30 Blood Pressure 134/75 12/26/18 09:30 O2 Sat by Pulse Oximetry (%) 98 12/26/18 09:30 Constitutional: Yes: Calm Eyes: Yes: Conjunctiva Clear HENT: Yes: Atraumatic Cardiovascular: Yes: S1, S2 Respiratory: Yes: CTA Bilaterally Gastrointestinal: Yes: Soft, Abdomen, Obese Genitourinary: Yes: WNL Musculoskeletal: Yes: WNL Edema: No Integumentary: Yes: WNL Neurological: Yes: Oriented Labs: CBC, BMP 12/24/18 06:45 12/26/18 08:00 INR, PTT INR 1.13 (0.83-1.09) H 12/22/18 11:50 Problem List - Problems (1) TK (acute kidney injury) Code(s): N17.9 - ACUTE KIDNEY FAILURE, UNSPECIFIED (2) Hyponatremia Code(s): E87.1 - HYPO-OSMOLALITY AND HYPONATREMIA (3) Chronic kidney disease (CKD) Code(s): N18.9 - CHRONIC KIDNEY DISEASE, UNSPECIFIED Qualifiers: Chronic kidney disease stage: stage 1 Qualified Code(s): N18.1 - Chronic kidney disease, stage 1 Assessment/Plan Current Medications Generic Name Dose Route Start Last Admin Trade Name Freq PRN Reason Stop Dose Admin Albuterol Sulfate 1 amp 12/25/18 16:45 Ventolin 0.083% Nebulizer Soln - NEB Q6H PRN SHORT OF BREATH/WHEEZING Atorvastatin Calcium 10 mg 12/22/18 22:00 12/25/18 22:04 Lipitor - PO 10 mg HS [facility] Administration Heparin Sodium (Porcine) 5,000 unit 12/22/18 22:00 12/26/18 10:43 Heparin - SQ 5,000 unit BID [facility] Administration Hydralazine HCl 20 mg 12/25/18 14:33 12/26/18 10:43 Apresoline - PO 20 mg BID [facility] Administration Ertapenem 0.5 gm/ Sodium 50 mls @ 100 mls/hr 12/24/18 12:15 12/26/18 10:48 Chloride IVPB 100 mls/hr DAILY [facility] Administration Insulin Aspart 1 vial 12/22/18 22:00 12/26/18 11:49 Novolog Vial Sliding Scale - SQ 2 units ACHS [facility] Administration Protocol Insulin Detemir 7 units 12/24/18 07:00 12/26/18 08:31 Levemir Vial SQ 7 units AM [facility] Administration Nystatin 1 applic 12/26/18 22:00 Mycostatin Cream - TP BID [facility] Polyethylene Glycol 17 gm 12/24/18 10:00 12/26/18 10:44 Miralax (For Daily Use) - PO 17 gm DAILY [facility] Administration Polysaccharide Iron Complex 150 mg 12/23/18 12:30 12/26/18 10:45 Niferex-150 - PO 150 mg DAILY [facility] Administration Potassium Phos/Sodium Phos 1 packet 12/22/18 22:00 12/26/18 10:44 Phos-Nak Packet - PO 1 packet BID [facility] Administration Valsartan 160 mg 12/23/18 12:45 12/26/18 10:43 Diovan - PO 160 mg DAILY [facility] Administration Impression 1. TK 2. CKD 3. HTN 4. hyponatremia 5. nsaid use 6. UTI 7. dementia 8. dvt Plan - pt will follow with Dr Saucedo after discharge - amlodipine stopped and lower ext edema resolved - cont valsartan - monitor labs - restrict free water intake - renal function is stable - cont abx for uti - do not restart diclofenac and avoid nsaids
[2018-12-26 15:49] VITALS: BP 120/87; PULSE 91; TEMP 97.5
[2018-12-26] MEDS ORDERED: NYSTATIN 100,000 UNIT/GM TOPICAL CREAM 15 GM TUBE TP SCH (22:00)
== END 2018-12-26 15:48 | disposition home or self-care (01) | DRG 683 ==
LOC: JER 10:51 → JERBED 16:33 → J5S 17:54
PROVIDERS: ADMIT Student in an Organized Health Care Education/Training Program; ATTEND Student in an Organized Health Care Education/Training Program
DX: N17.9 Acute kidney failure, unspecified (principal); E87.1 Hypo-osmolality and hyponatremia; N39.0 Urinary tract infection, site not specified; Z16.12 Extended spectrum beta lactamase (ESBL) resistance; E11.649 Type 2 diabetes mellitus with hypoglycemia without coma; E78.5 Hyperlipidemia, unspecified; F03.90 Unspecified dementia, unspecified severity, without behavioral disturbance, psychotic disturbance, mood disturbance, and anxiety; I12.9 Hypertensive chronic kidney disease with stage 1 through stage 4 chronic kidney disease, or unspecified chronic kidney disease; E11.22 Type 2 diabetes mellitus with diabetic chronic kidney disease; E11.40 Type 2 diabetes mellitus with diabetic neuropathy, unspecified; B96.20 Unspecified Escherichia coli [E. coli] as the cause of diseases classified elsewhere; R53.1 Weakness; D64.9 Anemia, unspecified; N18.1 Chronic kidney disease, stage 1; E66.9 Obesity, unspecified; Z68.32 Body mass index [BMI] 32.0-32.9, adult; E83.42 Hypomagnesemia; E83.39 Other disorders of phosphorus metabolism; Z79.1 Long term (current) use of non-steroidal anti-inflammatories (NSAID); Z86.718 Personal history of other venous thrombosis and embolism; Z87.891 Personal history of nicotine dependence
CPT/HCPCS: 36415; 70450-TC; 71045-TC-FY; 76775-TC; 80053; 80061; 81003; 82272; 82550; 82607; 82728; 82962; 83036; 83540; 83550; 83721; 83735; 84100; 84378; 84443; 84484; 85025; 85027; 85610; 87040; 87086; 87186; 93005; 93010; 97116-GP; 97162-GP; 99284-25; G0008; J1644; J7030; Q2036

== ENCOUNTER 2019-09-07 20:38 | Inpatient (IN) | payer OTHER ==
[2019-09-07 21:04] VITALS: BMI 36.0
--- NOTE | 2019-09-07 21:14 | PDOC ---
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 CP is described as midsternal pressure without radiation. She endorses SOB and b/l LE edema. She endorses weakness and lethargy for 1 week. Pt does not speak american and uses her d aughter for translation. She is non-ambulatory with a baseline of dementia. She follows with Dr. Powell. Past History - Medical History Allergies/Adverse Reactions: Allergies Allergy/AdvReac Type Severity Reaction Status Date / Time morphine Allergy Mild Swelling Verified 09/07/19 21:04 Home Medications: Ambulatory Orders Acetaminophen [Pain Relief] 500 mg PO QID PRN 12/23/18 Ammonium Lactate Cream [Lac-Hydrin 12% Cream -] 1 applic TP BID 12/23/18 Aspirin Coated [Ecotrin -] 81 mg PO DAILY 12/23/18 Atorvastatin Ca [Lipitor] 10 mg PO HS 12/23/18 Calcium Carbonate/Vitamin D3 [Calcium 500-Vit D3 400 Chew Tb] 1 tab.chew PO BID 12/23/18 Fenofibrate,Micronized [Antara] 90 mg PO DAILY 12/23/18 Folic Acid 1 mg PO DAILY 12/23/18 Icosapent Ethyl [Vascepa] 2 gm PO BID 12/23/18 Linaclotide [Linzess] 145 mcg PO DAILY 12/23/18 Thiamine HCl [B-1] 100 mg PO DAILY 12/23/18 Insulin (Levemir) [Levemir Vial] 7 units SQ AM #100 units 12/26/18 Iron Polysaccharides [Niferex-150 -] 150 mg PO DAILY #30 capsule 12/26/18 Nitrofurantoin Macrocrystal [Nitrofurantoin] 100 mg PO BID #14 capsule 12/26/18 Valsartan [Diovan] 160 mg PO DAILY #30 tablet 12/26/18 hydrALAZINE HCL [Apresoline -] 20 mg PO BID #20 tablet 12/26/18 Erythromycin 0.5% Eye Ointment [Erythromycin 0.5% Eye Ointment -] 1 applic OS TID #1 tube 07/27/19 Anemia: No Asthma: No Cancer: Yes (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) Cardiac Disorders: No CVA: No COPD: No CHF: No Dementia: Yes Diabetes: Yes GI Disorders: No Disorders: Yes HTN: Yes Hypercholesterolemia: Yes Liver Disease: No Seizures: No Thyroid Disease: No - Surgical History Abdominal Surgery: No Appendectomy: No Cardiac Surgery: No Cholecystectomy: No Lung Surgery: Yes (tumor removed from right lung in 1996) Neurologic Surgery: No Orthopedic Surgery: No - Immunization History Immunization Up to Date: Yes - Psycho-Social/Smoking History Smoking Status: Yes Smoking History: Never smoked Years of Tobacco Use: 20 Have you smoked in the past 12 months: No Number of Cigarettes Smoked Daily: 0 If you are a former smoker, when did you quit?: 50yrs ago Review of Systems - Review of Systems Able to Perform ROS?: Yes Constitutional: No: Chills, Fever Respiratory: Yes: Cough, Shortness of Breath, SOB at Rest Cardiac (ROS): Yes: Chest Pain, Edema ABD/GI: No: Nausea, Vomiting : No: Dysuria, Urgency Musculoskeletal: No: Muscle Pain, Muscle Weakness Integumentary: No: Dryness, Erythema, Lesions Neurological: No: Headache, Numbness, Dizziness Psychiatric: No: Anxiety, Depression, Mood Swings Endocrine: No: Intolerance to Cold, Intolerance to Heat *Physical Exam - Physical Exam General Appearance: Yes: Appropriately Dressed, Apparent Distress HEENT: positive: EOMI, Normal Voice Respiratory/Chest: positive: Lungs Clear, Normal Breath Sounds, Other (Belly breathing) Cardiovascular: positive: Regular Rhythm, Regular Rate, S1, S2 Gastrointestinal/Abdominal: positive: Flat, Soft. negative: Tender Neurologic: positive: Alert. negative: Fully Oriented ED Treatment Course - LABORATORY CBC & Chemistry Diagram: 09/07/19 21:33 09/07/19 21:33 Medical Decision Making - Medical Decision Making 88 yo with PMH of HTN, HLD, DM, CKD, DVT, Dementia presents with 5 hour hx of chest pressure. EKG, CXR, CMP, CBC, BNP, Coags, UA were performed. She was hypertensive (190s/80s) on arrival and confirmed with repeat BP checks leading to administration of Hydralazine (20mg) which is her home dose. She was found to be hyponatremic (131). She was found to have a UTI and treated with ceftriaxone (1mg). She was found to have an elevated troponin (0.06) with a negative EKG. She was found to have an elevated BNP (1400). She was given Aspirin (81) and Atorvastatin (10). She is being admitted for UTI, Hyponatremia, CHF, and an elevated troponin. Discharge - Discharge Information Problems reviewed: Yes Clinical Impression/Diagnosis: UTI (urinary tract infection), Hyponatremia, Elevated troponin, CHF (congestive heart failure) Condition: Stable - Admission Yes - Follow up/Referral Referrals: Karson Powell MD [Primary Care Provider] - - Patient Discharge Instructions - Post Discharge Activity
--- NOTE | 2019-09-07 21:43 | PDOC ---
Documentation entered by Rupesh Tabares SCRIBE, acting as scribe for Tanisha Gomez MD. Tanisha Gomez MD: This documentation has been prepared by the Valeriano ovalles Xhesika, SCRIBE, under my direction and personally reviewed by me in its entirety. I confirm that the documentation accurately reflects all work, treatment, procedures, and medical decision making performed by me. Attending Attestation - Resident Resident Name: Redd Valladares - ED Attending Attestation I have performed the following: I have examined & evaluated the patient, The case was reviewed & discussed with the resident, I agree w/resident's findings & plan, Exceptions are as noted - HPI HPI: 09/07/19 21:16 The patient is a 88y/o F with a PMH of HTN, HLD, dementia, CKD, hyponatremia, DVT who presents to the ED from chest pain x5hrs. Pt describes her CP as pressure, located at her mid-sternal region, associated with SOB. Daughter at bedside notes that the patient has been endorsing 1 week of LE edema. The patient denies fever, chills, cough, nausea, vomiting, diarrhea and constipation. Denies dysuria, frequency, urgency and hematuria. Allergies: NKDA PCP: Karson Daugherty - Physicial Exam PE: 09/07/19 21:35 wnwd 88 yo female BIBA from home has had chest pressure for psat 5 hours,increasing shortness of breath and LE edema for past 2 days head ncat neck supple abdomen protuberant,soft cvs [id number] lungs no wheezing extremities LE edema skin warm and dry neuro alert,poor historian - Medical Decision Making 09/07/19 21:39 88-year-old female brought in by ambulance from home with 5 hours of chest pressure and also increasing shortness of breath and lower extremity edema for the past 2 days This 88-year-old female has a history of dementia, chronic kidney disease, anemia, hypertension, CHF PCP is Dr Karson Powell [employer] Consultant Dr. Freedman Past surgical history hysterectomy, resection of lungs Daughter is bedside and states the patient is essentially functional quadriplegic and that she has not walked in the past year or 2 due to her becoming more debilitated Discharge - Discharge Information Problems reviewed: Yes Clinical Impression/Diagnosis: UTI (urinary tract infection), Hyponatremia, Elevated troponin, CHF (congestive heart failure) Condition: Stable - Follow up/Referral - Patient Discharge Instructions - Post Discharge Activity
[2019-09-07 21:51] LABS: MCH 26.1 pg (25.7-33.7); MCHC 32.3 g/dl (32.0-36.0); MEAN CELL VOLUME 80.8 fl (80-96); MEAN PLT VOLUME 7.5 fl (7.5-11.1); PLATELET COUNT 347 K/MM3 (134-434); RBC 4.21 M/mm3 (3.60-5.2); RDW 14.5 % (11.6-15.6)
[2019-09-07 22:08] LABS: INR 0.95 (0.83-1.09); PROTHROMBIN TIME (PATIENT) 11.2 SEC (9.7-13.0)
[2019-09-07 22:10] LABS: EPI CELLS 1 /uL (0-25.1); HYALINE CASTS 1 /uL (0-3.1); URINE APPEARANCE CLOUDY; URINE BILIRUBIN NEGATIVE (NEGATIVE); URINE COLOR YELLOW; URINE GLUCOSE (UA) NEGATIVE (NEGATIVE); URINE KETONE NEGATIVE (NEGATIVE); URINE LEUK ESTERASE 2+ (NEGATIVE); URINE NITRITE NEGATIVE (NEGATIVE); URINE PROTEIN 2+ (NEGATIVE); URINE RBC 4 /uL (0-23.9); URINE UROBILINOGEN 0.2 mg/dL (0.2-1.0); URINE WBC 179 /uL (0-25.8)
[2019-09-07 22:11] LABS: ACTIVATED PTT 28.8 SECONDS (25.2-36.5)
[2019-09-07] MEDS ORDERED: CEFTRIAXONE 1 GM in DEXTROSE 5%-WATER - 100 ML IVPB ONE (22:12)
[2019-09-07 22:27] LABS: ALBUMIN 3.2 g/dl (3.4-5.0); BILIRUBIN,TOTAL 0.4 mg/dL (0.2-1); BLOOD UREA NITROGEN 18.7 mg/dL (7-18); CREATININE 1.5 mg/dL (0.55-1.3); N-TERMINAL BNP 1420.4 pg/ml (5-450); POTASSIUM 4.7 mmol/L (3.5-5.1); TOT PROT 7.4 g/dl (6.4-8.2)
[2019-09-07] MEDS ORDERED: ASPIRIN 81 MG CHEWABLE TABLETS PO ONE (22:58)
[2019-09-07] MEDS ORDERED: CEFTRIAXONE 1 GM in DEXTROSE 5%-WATER - 50 ML IVPB ONE (23:00)
[2019-09-07] MEDS ORDERED: hydrALAZINE HCL 20 MG/ML VIAL IVPUSH ONE (23:02)
[2019-09-07] MEDS ORDERED: ATORVASTATIN CA 10 MG TABLET (FP) PO ONE (23:03)
[2019-09-07] MEDS ORDERED: ASPIRIN 81 MG CHEWABLE TABLETS ONE (23:09)
[2019-09-07] MEDS ORDERED: hydrALAZINE HCL 20 MG/ML VIAL ONE (23:10)
[2019-09-07] MEDS ORDERED: ATORVASTATIN CA 10 MG TABLET (FP) ONE (23:10)
--- NOTE | 2019-09-08 01:49 | HP ---
Admitting History and Physical - Primary Care Physician PCP: Kasron Powell I - Admission Chief Complaint: Chest Pain, SOB, Lower Leg Edema, Weakness History of Present Illness: This is a 88 y/o female with a PMHx of HTN, HLD, CKD, Chronic Hyponatremia, DVT (no AC, only Asa), Dementia. Who presents to the ED via ambulance with her daughter for chest pain and increased b/l LE swelling. Patent has Dementia and is [place] Citizen speaking unable to provide HPI. The daughter reports that the patient complained of chest pressure to mid sternum with, SOB. She also reports noting increased b/l leg edema x several days. The daughter reports that the patient's furosemide was discontinued by either her PMD or one of the Specialists. She reports that the patient has been non-ambulatory for over a year. per the daughter the patient denies fever, chills, cough, N/V/D, constipation, dysuria. The daughter denies recent sick contacts or recent travel. 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: Dementia Cardiovascular: Yes: Deep Vein Thrombosis, HTN, Hyperlipdemia Pulmonary: Yes: Cancer Renal/: Yes: Renal Inusuff Dermatology: Yes: Basal Cell, Other (skin cancer at forehead) - Past Surgical History Past Surgical History: Yes: Hysterectomy Additional Past Surgical History: Resection R Lung - Smoking History Smoking history: Former smoker Have you smoked in the past 12 months: No Aproximately how many cigarettes per day: 0 If you are a former smoker, when did you quit?: 50yrs ago - Alcohol/Substance Use Hx Alcohol Use: No History of Substance Use: reports: None - Social History Usual Living Arrangement: Yes: With Child ADL: Family Assistance History of Recent Travel: No Home Medications - Allergies Allergies/Adverse Reactions: Allergies Allergy/AdvReac Type Severity Reaction Status Date / Time morphine Allergy Mild Swelling Verified 09/07/19 21:04 - Home Medications Home Medications: Ambulatory Orders Acetaminophen [Pain Relief] 500 mg PO QID PRN 12/23/18 Ammonium Lactate Cream [Lac-Hydrin 12% Cream -] 1 applic TP BID 12/23/18 Aspirin Coated [Ecotrin -] 81 mg PO DAILY 12/23/18 Atorvastatin Ca [Lipitor] 10 mg PO HS 12/23/18 Calcium Carbonate/Vitamin D3 [Calcium 500-Vit D3 400 Chew Tb] 1 tab.chew PO BID 12/23/18 Fenofibrate,Micronized [Antara] 90 mg PO DAILY 12/23/18 Folic Acid 1 mg PO DAILY 12/23/18 Icosapent Ethyl [Vascepa] 2 gm PO BID 12/23/18 Linaclotide [Linzess] 145 mcg PO DAILY 12/23/18 Thiamine HCl [B-1] 100 mg PO DAILY 12/23/18 Insulin (Levemir) [Levemir Vial] 7 units SQ AM #100 units 12/26/18 Iron Polysaccharides [Niferex-150 -] 150 mg PO DAILY #30 capsule 12/26/18 Nitrofurantoin Macrocrystal [Nitrofurantoin] 100 mg PO BID #14 capsule 12/26/18 Valsartan [Diovan] 160 mg PO DAILY #30 tablet 12/26/18 hydrALAZINE HCL [Apresoline -] 20 mg PO BID #20 tablet 12/26/18 Erythromycin 0.5% Eye Ointment [Erythromycin 0.5% Eye Ointment -] 1 applic OS TID #1 tube 07/27/19 Family Medical History Family History: Unable to Obtain Review of Systems Unable to obtain ROS, reason: Dementia Physical Examination Vital Signs: Vital Signs Temperature 98.1 F 09/07/19 20:45 Pulse Rate 74 09/08/19 00:20 Respiratory Rate 18 09/08/19 00:20 Blood Pressure 139/65 09/08/19 00:20 O2 Sat by Pulse Oximetry (%) 95 09/08/19 00:20 Constitutional: Yes: Well Nourished, No Distress, Calm, Obese Eyes: Yes: WNL, Conjunctiva Clear, EOM Intact, PERRL HENT: Yes: WNL, Atraumatic, Normocephalic Neck: Yes: WNL, Supple, Trachea Midline Cardiovascular: Yes: Regular Rate and Rhythm, S1, S2 Respiratory: Yes: Diminished (bases) Gastrointestinal: Yes: WNL, Normal Bowel Sounds, Soft, Abdomen, Obese ...Rectal Exam: Yes: Deferred Renal/: Yes: WNL Breast(s): Yes: WNL Musculoskeletal: Yes: Muscle Weakness Extremities: Yes: WNL Edema: Yes Edema: LLE: 2+, RLE: 2+ Peripheral Pulses WNL: Yes Integumentary: Yes: WNL Neurological: Yes: Alert, Confusion ...Motor Strength: WNL Psychiatric: Yes: Alert Labs: CBC, BMP 09/07/19 21:33 09/07/19 21:33 Laboratory Results - last 24 hr 09/07/19 09/07/19 09/07/19 21:33 21:33 21:33 WBC 8.0 RBC 4.21 Hgb 11.0 Hct 34.0 D MCV 80.8 MCH 26.1 MCHC 32.3 RDW 14.5 Plt Count 347 MPV 7.5 PT with INR 11.20 INR 0.95 PTT (Actin FS) 28.8 Sodium Potassium Chloride Carbon Dioxide Anion Gap BUN Creatinine Est GFR (CKD-EPI)AfAm Est GFR (CKD-EPI)NonAf Random Glucose Calcium Total Bilirubin AST ALT Alkaline Phosphatase Creatine Kinase Troponin I B-Natriuretic Peptide Total Protein Albumin Urine Color Yellow Urine Appearance Cloudy Urine pH 6.0 Ur Specific [place] 1.006 L Urine Protein 2+ H Urine Glucose (UA) Negative Urine Ketones Negative Urine Blood Negative Urine Nitrite Negative Urine Bilirubin Negative Urine Urobilinogen 0.2 Ur Leukocyte Esterase 2+ H Urine WBC (Auto) 179 Urine RBC (Auto) 4 Urine Casts (Auto) 1 U Epithel Cells (Auto) 1 Urine Bacteria (Auto) >10,000 09/07/19 21:33 WBC RBC Hgb Hct MCV MCH MCHC RDW Plt Count MPV PT with INR INR PTT (Actin FS) Sodium 131 L Potassium 4.7 Chloride 98 Carbon Dioxide 23 Anion Gap 10 BUN 18.7 H Creatinine 1.5 H Est GFR (CKD-EPI)AfAm 35.43 Est GFR (CKD-EPI)NonAf 30.57 Random Glucose 170 H Calcium 9.0 Total Bilirubin 0.4 AST 24 ALT 24 Alkaline Phosphatase 116 Creatine Kinase 91 Troponin I 0.06 H B-Natriuretic Peptide 1420.4 H Total Protein 7.4 Albumin 3.2 L Urine Color Urine Appearance Urine pH Ur Specific [place] Urine Protein Urine Glucose (UA) Urine Ketones Urine Blood Urine Nitrite Urine Bilirubin Urine Urobilinogen Ur Leukocyte Esterase Urine WBC (Auto) Urine RBC (Auto) Urine Casts (Auto) U Epithel Cells (Auto) Urine Bacteria (Auto) Intake & Output 09/05/19 09/06/19 09/07/19 09/08/19 23:59 23:59 23:59 23:59 Intake Total 10 Balance 10 Weight 95.254 kg 95.254 kg Current Medications Generic Name Dose Route Start Last Admin Trade Name Michael PRN Reason Stop Dose Admin Ceftriaxone Sodium 1 gm/ 50 mls @ 200 mls/hr 09/08/19 10:00 Dextrose IVPB DAILY GUMARO Protocol Imaging - Results Chest X-ray: Image Reviewed EKG: Image Reviewed Problem List - Problems (1) Acute exacerbation of CHF (congestive heart failure) Assessment/Plan: BNP 1420 Chest Xray image- pulm vascular congestion Appreciate Cardiology consult EKG reviewed Lasix Monitor CBC, CMP Strict INOs Daily weights Elevate extremity O2 Code(s): I50.9 - HEART FAILURE, UNSPECIFIED (2) Elevated troponin Assessment/Plan: Likely secondary to demand ischemia Serial Enzymes Appreciate Cardiology consult EKG- reviewed Continue cardiac monitoring Code(s): R79.89 - OTHER SPECIFIED ABNORMAL FINDINGS OF BLOOD CHEMISTRY (3) Hyponatremia Assessment/Plan: Na 131 at baseline Appreciate Nephrology consult Monitor CMP Code(s): E87.1 - HYPO-OSMOLALITY AND HYPONATREMIA (4) Lower extremity edema Assessment/Plan: Likely secondary to CHF vs DVT Chest Xray-reviewed Wells Score 2, mod risk Duplex LE r/o DVT Code(s): R60.0 - LOCALIZED EDEMA (5) UTI (urinary tract infection) Assessment/Plan: UA- +2 protein, +2 leukocyte esterase, 179 WBC, >10,000 Bacteria Urine Culture-pending Continue to treat empirically with Ceftriaxone, until UC resulted Monitor CBC Monitor vitals Code(s): N39.0 - URINARY TRACT INFECTION, SITE NOT SPECIFIED (6) Anemia Assessment/Plan: stable Hgb 11.0 at baseline Will transfuse if Hgb < 7.0 Monitor CBC Continue Iron Code(s): D64.9 - ANEMIA, UNSPECIFIED (7) Dementia Assessment/Plan: Stable No home med Fall Precautions Code(s): F03.90 - UNSPECIFIED DEMENTIA WITHOUT BEHAVIORAL DISTURBANCE (8) Diabetes Assessment/Plan: stable BGMs ISS Continue Levemir Monitor renal function Code(s): E11.9 - TYPE 2 DIABETES MELLITUS WITHOUT COMPLICATIONS Qualifiers: (9) Hyperlipidemia Assessment/Plan: stable Continue Lipitor Monitor LFTs Code(s): E78.5 - HYPERLIPIDEMIA, UNSPECIFIED Qualifiers: (10) Hypertension Assessment/Plan: suboptimal Hydralazine given in ED The daughter will call in the am with home meds Monitor BP Code(s): I10 - ESSENTIAL (PRIMARY) HYPERTENSION Qualifiers: (11) Functional quadriplegia Assessment/Plan: Complete immobility due to frailty, end-stage Dementia Requires total care Turn Q2h Shanti Lift as needed Heel Protectors Fall Precautions Code(s): R53.2 - FUNCTIONAL QUADRIPLEGIA Assessment/Plan This is a 88 y/o female with a PMHx of HTN, HLD, CKD, Chronic Hyponatremia, DVT (no AC, only Asa), Dementia. Admitted for Chest Pain r/o ACS, Acute CHF Exacerbation, Troponinemia, Hyponatremia, UTI for further evaluation of their emergent condition. Plan: See Problem List FEN Fluid Restriction 1L Na deficit 384 Low Na Diet DVT ppx OOB SCDs Heparin SQ Dispo: Requires Inpatient Care Visit type - Emergency Visit Emergency Visit: Yes ED Registration Date: 09/07/19 Care time: The patient presented to the Emergency Department on the above date and was hospitalized for further evaluation of their emergent condition. - New Patient This patient is new to me today: Yes Date on this admission: 09/08/19 - Critical Care Critical Care patient: No
--- NOTE | 2019-09-08 07:24 | CONSULT ---
Consult Consult Specialty:: Nephrology Reason for Consultation:: ckd and hyponatremia - History of Present Illness Chief Complaint: chest pain and lower ext edema History of Present Illness: Pt is an 88 year old female with pmhx of htn, hld, ckd, hyponatremia, dvt, and dementia who presents to the ER with chest pain. She also complains of increased lower ext edema. 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 She follows regularly with Dr Alvarez. She denies hematuria or dysuria. Her daughter is at bedside and assisted with history. Pts lasix had been stopped but daughter is not sure why. 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 Cardio/Vascular: Yes: Deep Vein Thrombosis, HTN, Hyperlipdemia Pulmonary: Yes: Cancer Renal/: Yes: Renal Inusuff Dermatology: Yes: Basal Cell, Other (skin cancer at forehead) - Past Surgical History Past Surgical History: Yes: Hysterectomy - Alcohol/Substance Use Hx Alcohol Use: No History of Substance Use: reports: None - Smoking History Smoking history: Former smoker Have you smoked in the past 12 months: No Aproximately how many cigarettes per day: 0 If you are a former smoker, when did you quit?: 50yrs ago - Social History ADL: Family Assistance History of Recent Travel: No Home Medications - Allergies Allergies/Adverse Reactions: Allergies Allergy/AdvReac Type Severity Reaction Status Date / Time morphine Allergy Mild Swelling Verified 09/07/19 21:04 - Home Medications Home Medications: Ambulatory Orders Acetaminophen [Pain Relief] 500 mg PO QID PRN 12/23/18 Ammonium Lactate Cream [Lac-Hydrin 12% Cream -] 1 applic TP BID 12/23/18 Aspirin Coated [Ecotrin -] 81 mg PO DAILY 12/23/18 Atorvastatin Ca [Lipitor] 10 mg PO HS 12/23/18 Calcium Carbonate/Vitamin D3 [Calcium 500-Vit D3 400 Chew Tb] 1 tab.chew PO BID 12/23/18 Fenofibrate,Micronized [Antara] 90 mg PO DAILY 12/23/18 Folic Acid 1 mg PO DAILY 12/23/18 Icosapent Ethyl [Vascepa] 2 gm PO BID 12/23/18 Linaclotide [Linzess] 145 mcg PO DAILY 12/23/18 Thiamine HCl [B-1] 100 mg PO DAILY 12/23/18 Insulin (Levemir) [Levemir Vial] 7 units SQ AM #100 units 12/26/18 Iron Polysaccharides [Niferex-150 -] 150 mg PO DAILY #30 capsule 12/26/18 Valsartan [Diovan] 160 mg PO DAILY #30 tablet 12/26/18 hydrALAZINE HCL [Apresoline -] 20 mg PO BID #20 tablet 12/26/18 Family Medical History Family History: Denies Review of Systems - Review of Systems Constitutional: reports: No Symptoms Eyes: reports: No Symptoms HENT: reports: No Symptoms Neck: reports: No Symptoms Cardiovascular: reports: Chest Pain, Edema Respiratory: reports: No Symptoms Gastrointestinal: reports: No Symptoms Genitourinary: reports: No Symptoms Musculoskeletal: reports: No Symptoms Integumentary: reports: No Symptoms Neurological: reports: No Symptoms Endocrine: reports: No Symptoms Hematology/Lymphatic: reports: No Symptoms Psychiatric: reports: No Symptoms Physical Exam Vital Signs: Vital Signs Temperature 97.7 F 09/08/19 06:00 Pulse Rate 74 09/08/19 06:00 Respiratory Rate 20 09/08/19 06:00 Blood Pressure 164/77 09/08/19 06:00 O2 Sat by Pulse Oximetry (%) 98 09/08/19 04:50 Constitutional: Yes: Calm Eyes: Yes: Conjunctiva Clear HENT: Yes: Atraumatic Neck: Yes: Supple Cardiovascular: Yes: S1, S2 Respiratory: Yes: CTA Bilaterally Gastrointestinal: Yes: Soft Renal/: Yes: WNL Musculoskeletal: Yes: WNL Edema: Yes Edema: LLE: 1+, RLE: 1+ Neurological: Yes: Oriented Psychiatric: Yes: Oriented Labs: CBC, BMP 09/07/19 21:33 09/07/19 21:33 Imaging - Results Chest X-ray: Report Reviewed Problem List - Problems (1) CHF (congestive heart failure) Code(s): I50.9 - HEART FAILURE, UNSPECIFIED (2) Hyponatremia Code(s): E87.1 - HYPO-OSMOLALITY AND HYPONATREMIA (3) Chronic kidney disease (CKD) Code(s): N18.9 - CHRONIC KIDNEY DISEASE, UNSPECIFIED Qualifiers: Chronic kidney disease stage: stage 1 Qualified Code(s): N18.1 - Chronic kidney disease, stage 1 Assessment/Plan Current Medications Generic Name Dose Route Start Last Admin Trade Name Freq PRN Reason Stop Dose Admin Furosemide 40 mg 09/08/19 10:00 Lasix Injection - IVPUSH DAILY GUMARO Ceftriaxone Sodium 1 gm/ 50 mls @ 200 mls/hr 09/08/19 10:00 Dextrose IVPB DAILY G[facility] Protocol Impression 1. chest pain 2. CKD 3. HTN 4. hyponatremia 5. hx nsaid use 6. UTI 7. dementia 8. 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
--- NOTE | 2019-09-08 08:50 | PN ---
Progress Note, Physician - Current Medication List Current Medications: Active Medications Furosemide (Lasix Injection -) 40 mg IVPUSH DAILY [facility]O Heparin Sodium (Porcine) (Heparin -) 5,000 unit SQ BID GUM[facility]O Ceftriaxone Sodium 1 gm/ (Dextrose) 50 mls @ 200 mls/hr IVPB DAILY G[facility]O; Protocol Insulin Aspart (Novolog Vial Sliding Scale -) 1 vial SQ ACHS GUMARO; Protocol - Objective Vital Signs: Vital Signs Temperature 97.7 F 09/08/19 06:00 Pulse Rate 74 09/08/19 06:00 Respiratory Rate 20 09/08/19 06:00 Blood Pressure 164/77 09/08/19 06:00 O2 Sat by Pulse Oximetry (%) 98 09/08/19 04:50 Cardiovascular: Yes: S1, S2 Respiratory: Yes: Regular, CTA Bilaterally Gastrointestinal: Yes: Normal Bowel Sounds, Soft. No: Tenderness Labs: CBC, BMP 09/07/19 21:33 09/07/19 21:33 INR, PTT INR 0.95 (0.83-1.09) 09/07/19 21:33 Problem List - Problems (1) UTI (urinary tract infection) Assessment/Plan: UA- +2 protein, +2 leukocyte esterase, 179 WBC, >10,000 Bacteria Urine Culture-pending Continue to treat empirically with Ceftriaxone, until UC resulted Monitor CBC Monitor vitals Code(s): N39.0 - URINARY TRACT INFECTION, SITE NOT SPECIFIED (2) CHF (congestive heart failure) Assessment/Plan: BNP 1420 Chest Xray image- pulm vascular congestion Cardiology consult Lasix Monitor CBC, CMP O2 Code(s): I50.9 - HEART FAILURE, UNSPECIFIED (3) Functional quadriplegia Assessment/Plan: PT Code(s): R53.2 - FUNCTIONAL QUADRIPLEGIA (4) Chest pain Assessment/Plan: atypical see above Code(s): R07.9 - CHEST PAIN, UNSPECIFIED Qualifiers: Chest pain type: precordial chest pain Qualified Code(s): R07.2 - Precordial pain (5) Dementia Assessment/Plan: Stable No home med Fall Precautions Complete immobility due to frailty, end-stage Dementia Requires total care Turn Q2h Shanti Lift as needed Heel Protectors Fall Precautions Code(s): F03.90 - UNSPECIFIED DEMENTIA WITHOUT BEHAVIORAL DISTURBANCE (6) Diabetes Assessment/Plan: BGMs ISS Continue Levemir Monitor renal function Code(s): E11.9 - TYPE 2 DIABETES MELLITUS WITHOUT COMPLICATIONS Qualifiers: (7) Elevated troponin Assessment/Plan: Likely secondary to demand ischemia Serial Enzymes Cardiology consult Continue cardiac monitoring Code(s): R79.89 - OTHER SPECIFIED ABNORMAL FINDINGS OF BLOOD CHEMISTRY (8) Hypertension Assessment/Plan: suboptimal Hydralazine given in ED confirm home meds with daughter Monitor BP Code(s): I10 - ESSENTIAL (PRIMARY) HYPERTENSION Qualifiers:
[2019-09-08] MEDS ORDERED: cefTRIAXone SODIUM 1 GM VIAL ONE (09:52)
[2019-09-08] MEDS ORDERED: DEXTROSE 5%-WATER - 50 ML IVPB ONE (09:52)
--- NOTE | 2019-09-08 09:52 | CON.CARD ---
Cardiology Consult (text) - Consultation Consultation Note: Chief Complaint: Events noted, notes reviewed, chest pain syndrome, progressive weakness, bilateral lower extremity edema, cardiovascular evaluation History of Present Illness: Seen and examined on telemetry. Full consult dictated Medications: Current Medications Generic Name Dose Route Start Last Admin Trade Name Michael PRN Reason Stop Dose Admin Furosemide 40 mg 09/08/19 10:00 Lasix Injection - IVPUSH DAILY [facility] Heparin Sodium (Porcine) 5,000 unit 09/08/19 10:00 Heparin - SQ BID GUMARO Ceftriaxone Sodium 1 gm/ 50 mls @ 200 mls/hr 09/08/19 10:00 Dextrose IVPB DAILY [facility] Protocol Insulin Aspart 1 vial 09/08/19 11:00 Novolog Vial Sliding Scale - SQ ACHS [facility] Protocol Review of Systems - Review of Systems Constitutional: denies: Fever or Chills Cardiovascular: As noted above Respiratory: denies: Cough or Sputum Production Gastrointestinal: denies: Nausea, Vomiting, Diarrhea, Constipation, Abdominal Pain Neurological: denies: Headaches Vital Signs: Last Vital Signs Temp Pulse Resp BP Pulse Ox 97.7 F 74 20 164/77 98 09/08/19 06:00 09/08/19 06:00 09/08/19 06:00 09/08/19 06:00 09/08/19 04:50 Intake & Output 09/05/19 09/06/19 09/07/19 09/08/19 23:59 23:59 23:59 23:59 Intake Total 10 Balance 10 Weight 210 lb 210 lb Neck: Supple Negative JVD No Bruit Respiratory: Clear to A&P bilaterally Cardiovascular: S1 S2 Regular Rate and Rhythm Grade 2/6 VANESA Gastrointestinal: Soft Benign Normal Bowel Sounds Ext: Trace Edema Labs: Troponin, BNP 09/07/19 21:33 Troponin I 0.06 H B-Natriuretic Peptide 1420.4 H CBC, BMP 09/07/19 21:33 09/07/19 21:33 Hepatic Panel Total Bilirubin 0.4 mg/dL (0.2-1) 09/07/19 21:33 AST 24 U/L (15-37) 09/07/19 21:33 ALT 24 U/L (13-61) 09/07/19 21:33 Alkaline Phosphatase 116 U/L (45-117) 09/07/19 21:33 Albumin 3.2 g/dl (3.4-5.0) L 09/07/19 21:33 INR, PTT INR 0.95 (0.83-1.09) 09/07/19 21:33 Assessment/Plan ASSESSMENT: 1. Clinical presentation is consistent with chronic class I-II [place] [employer] classification diastolic left ventricular failure, no evidence of acute decompensation 2. CAD with evidence of demand ischemic injury angina pectoris 3. Mitral valve regurgitation mild in severity 4. Heart murmur related to aortic valve sclerosis with no evidence of aortic valve stenosis 5. Tricuspid valve regurgitation mild in severity 6. Hypertensive cardiovascular disease, labile blood pressure not at goal 7. Insulin-dependent diabetes mellitus 8. Hypercholesterolemia 9. History of peripheral vascular disease 10. History of meningioma 11. History of basal cell carcinoma/forehead post resection 12. History of lung carcinoma post resection 13. Chronic kidney disease 14. History of deep vein thrombosis/lower extremity 15. Hyponatremia PLAN: 1. Continue beta-mandy therapy/Bystolic therapy 2. Continue angiotensin receptor mandy therapy with close monitoring of renal function 3. Continue Norvasc therapy 4. Continue Lasix (IV Lasix) with close monitoring of renal function and electrolytes 4. Continue daily Ecotrin therapy 5. Echocardiography for evaluation of left ventricular systolic function and the above-noted valvular pathologies Above was reviewed in detail with the patient and her daughter who was at the bedside Jes Costello M.D.
[2019-09-08] MEDS ORDERED: HEPARIN NA (PORCINE) 5,000 UNITS/ML 1ML VIAL SQ SCH (10:00)
[2019-09-08] MEDS: CEFTRIAXONE 1 GM in DEXTROSE 5%-WATER - 50 ML IVPB SCH (10:16)
[2019-09-08] MEDS: FUROSEMIDE 40 MG/4 ML INJECTABLE VIAL IVPUSH SCH (10:16)
[2019-09-08] MEDS: NEBIVOLOL 10 MG TABLET (FP) PO SCH (10:19)
[2019-09-08] MEDS: ASPIRIN COATED 81 MG TABLET.EC PO SCH (10:20)
[2019-09-08] MEDS: VALSARTAN 160 MG TABLET (UD) PO SCH (10:20)
[2019-09-08] MEDS: amLODIPine BESYLATE 5 MG TABLET (FP) PO SCH (10:20)
[2019-09-08] MEDS ORDERED: PT OWN MED DRAWER 7, Y5N ONE (10:31)
--- NOTE | 2019-09-08 10:55 | CONS ---
DATE OF CONSULTATION: 09/08/2019 CONSULTATION REQUESTED BY: Hospitalist service. CHIEF COMPLAINT: Chest discomfort, generalized weakness, cardiovascular evaluation. HISTORY: Patient is known to me from office followup. Most recent followup was last year, October of 2018. Patient's daughter is at the bedside. [id number]-old female of descent with known history of coronary artery disease; angina pectoris; abnormal electrocardiogram; negative pharmacologic dipyridamole myocardial perfusion imaging study for myocardial ischemia October 17, 2015; diastolic left ventricular dysfunction with chronic class I [place] [employer] classification left ventricular failure; mitral valve regurgitation, mild in severity, of no clinical significance; heart murmur related to aortic valve sclerosis with no evidence of aortic valve stenosis; tricuspid valve regurgitation, mild in severity; hypertensive cardiovascular disease/labile blood pressure; insulin-dependent diabetes mellitus; hypercholesterolemia; peripheral vascular disease, mild in severity; meningioma; basal cell carcinoma of the forehead post resection; lung carcinoma post resection; gastroesophageal reflux disease; chronic kidney disease; lower extremity deep vein thrombosis; and degenerative joint disease, who presented to [facility] with progressive weakness which has been noted over the last several days, and in addition, reported chest discomfort. Chest discomfort was described as heaviness, transitory, that subsided spontaneously. Patient denied any dyspnea, orthopnea, or paroxysmal nocturnal dyspnea. Patient reported bilateral lower extremity edema. Patient denies any palpitations, dizziness, lightheadedness, or syncope. Patient reported progressive fatigue and tiredness. Upon evaluation in the emergency room, patient was noted to have elevated BNP level. PAST MEDICAL HISTORY: Coronary artery disease; abnormal electrocardiogram; negative pharmacologic dipyridamole myocardial perfusion imaging study for myocardial ischemia; angina pectoris; diastolic left ventricular dysfunction with chronic class I [place] [employer] classification left ventricular failure; mitral valve regurgitation, mild in severity; heart murmur related to aortic valve sclerosis with no evidence of aortic valve stenosis; tricuspid valve regurgitation, mild in severity; hypertensive cardiovascular disease; insulin-dependent diabetes mellitus; hypercholesterolemia; peripheral vascular disease; meningioma; forehead basal cell carcinoma post resection; lung carcinoma post resection; gastroesophageal reflux disease; chronic kidney disease; lower extremity deep vein thrombosis; degenerative joint disease. SOCIAL HISTORY: Prior history of tobacco abuse. FAMILY HISTORY: Positive for coronary artery disease. ALLERGIES: Intolerance to MORPHINE. MEDICATIONS: Medical therapy as of October 09, 2018, included fenofibrate 90 mg once a day, Lipitor 10 mg once a day, Dwight 5/40 mg once a day, Bystolic 10 mg once a day, calcium plus vitamin D 1 tablet daily, Dexilant 60 mg once a day, Ecotrin 81 mg once a day, folic acid 1 mg once a day, Lasix 20 mg once a day, glipizide 10 mg once a day, Linzess 145 mcg once a day as needed, gabapentin 100 mg twice a day, insulin, thiamine 100 mg once a day, 2 capsules twice a day, Voltaren gel. REVIEW OF SYSTEMS: Head and Neck: Denies headache, photophobia, blurring of vision. Respiratory: No cough or sputum production. Cardiovascular: As noted above. Gastrointestinal: No reported nausea, vomiting, diarrhea, or abdominal discomfort. Musculoskeletal: History of degenerative joint disease. PHYSICAL EXAMINATION: Vital Signs: Blood pressure is 164/77 mmHg. Pulse rate is 74 beats per minute. Head and Neck: Pupils equally react to light and accommodation. Extraocular muscles are intact. Anicteric sclerae. Negative JVD. No bruit appreciated. Chest: Clear to auscultation and percussion. Cardiovascular: S1, S2 regular. Grade 2/6 systolic ejection murmur. No clicks or gallops. Abdomen: Soft, benign. Normoactive bowel sounds. Extremities: Trace edema. Distal pulses 1+. No calf tenderness. LABORATORY: Troponin I 0.06. BNP 1420.4. White cell count 8.0, hemoglobin 11.0, platelet count 347. Basic metabolic profile reveals sodium 131, potassium 4.7, BUN 18.7, creatinine 1.5, glucose 170. INR 0.95. Chest x-ray report was noted. Upon review, no clear evidence of congestive heart failure. ASSESSMENT: 1. Clinical presentation is consistent with chronic class I to II [place] [employer] classification left ventricular failure. No evidence of acute decompensation. 2. Coronary artery disease with evidence of demand ischemic injury, angina pectoris. 3. Mitral valve regurgitation, mild in severity. 4. Heart murmur related to aortic valve sclerosis with no evidence of aortic valve stenosis. 5. Tricuspid valve regurgitation, mild in severity. 6. Hypertensive cardiovascular disease, labile blood pressure, not at goal. 7. Insulin-dependent diabetes mellitus. 8. Hypercholesterolemia. 9. History of peripheral vascular disease. 10. History of meningioma. 11. History of basal cell carcinoma/forehead, post resection. 12. History of lung carcinoma post resection. 13. Chronic kidney disease. 14. History of deep vein thrombosis, lower extremity. 15. Hyponatremia. PLAN/RECOMMENDATION: 1. Continuation of beta mandy therapy, Bystolic therapy, and dose titration as needed and as tolerated. 2. Continuation of angiotensin receptor mandy therapy with close monitoring of renal function. 3. Continuation of Norvasc therapy. 4. Continuation of IV Lasix with close monitoring of renal function and electrolytes for 24-48 hours, and subsequent initiation of oral Lasix therapy. 5. Continuation of daily Ecotrin therapy. 6. Echocardiography for evaluation of left ventricular systolic function and the above noted valvular pathologies. The above was reviewed in detail with the patient and her daughter who was at the bedside. Thank you for the kind referral. OLIVER THORNTON M.D. [id number]
[2019-09-08] MEDS: INSULIN SLIDING SCALE (NOVOLOG) 1 VIAL SQ SCH ×3 (11:39→22:20)
--- NOTE | 2019-09-08 11:43 | PN ---
Progress Note (short form) - Note Progress Note: ID CONSULT DICTATED RECURRENT UTI R/O SEPSIS SECONDARY TO UTI CHF AZOTEMIA HX ESBL URINE AWAIT C/S EMPIRIC CEFTRIAXONE DISCUSSED WITH DAUGHTER AT BEDSIDE
--- NOTE | 2019-09-08 12:04 | EKG ---
Test Reason : Blood Pressure : / mmHG Vent. Rate : 073 BPM Atrial Rate : 073 BPM P-R Int : 166 ms QRS Dur : 084 ms QT Int : 404 ms P-R-T Axes : 074 -40 071 degrees QTc Int : 445 ms NORMAL SINUS RHYTHM LEFT AXIS DEVIATION INFERIOR INFARCT (CITED ON OR BEFORE 13-JUN-2007) ANTERIOR INFARCT , AGE UNDETERMINED ABNORMAL ECG WHEN COMPARED WITH ECG OF 22-DEC-2018 11:15, ANTERIOR INFARCT IS NOW PRESENT Confirmed by MD Xavi, Tyler ([id number]) on 09/08/2019 12:04:36 PM Referred By: Confirmed By:Tyler Hurley MD
--- NOTE | 2019-09-08 12:21 | CONS ---
DATE OF CONSULTATION: 09/08/2019 CHIEF COMPLAINT/HISTORY OF PRESENT ILLNESS: The patient is an 88-year-old female who was evaluated for a urinary tract infection. History was obtained from the chart as she cannot give a history secondary to language barrier. Her daughter was present at the time of the examination and served as a sewing machine assembler. The patient was admitted to the hospital on September 07, 2019, with a several-hour history of worsening chest pain. In addition, the patient also had increasing shortness of breath and lower extremity edema. The daughter reports that she had become increasingly lethargic over the past 1 week. The patient in the emergency room was noted to be hypertensive. Initial evaluation showed pyuria. She was empirically treated with ceftriaxone for urinary tract infection. She has had a history of recurrent urinary tract infections with different pathogens in the past including ESBL. According to the daughter who translated, she denied any dysuria, hematuria, suprapubic or flank pain. She did complain of urinary frequency. She was last admitted in December of 2018 for a urinary tract infection. PAST MEDICAL HISTORY: Positive for dementia, chronic kidney disease, DVT, hypertension, basal cell carcinoma, hyperlipidemia, diabetes mellitus, chronic kidney disease. PAST SURGICAL HISTORY: Status post hysterectomy. ALLERGIES: MORPHINE. MEDICATIONS: Include ceftriaxone, Norvasc, Lipitor, hydralazine, Bystolic, Diovan, Ecotrin, aspirin, Lasix. SOCIAL HISTORY: She resides at home with her family. Former smoker. REVIEW OF SYSTEMS: Neurologic: Positive for dementia. Cardiac: Negative chest pain at the present time, or palpitations. Respiratory: Denies dyspnea or cough. Gastrointestinal: Negative vomiting or diarrhea. Genitourinary: As per HPI. LABORATORY DATA: White count 8.0, hematocrit 34.0, platelet count 347. Creatinine 1.5. Liver enzymes normal. Urinalysis: White cells 179. Urine culture pending. COVID-19 pending. Previous urine culture is positive for ESBL, E. coli, pseudomonas, enterobacter. PHYSICAL EXAMINATION: General: She is awake and alert. She is supine in bed. She is not acutely toxic appearing. HEENT: Sclerae are anicteric. She has a skin defect present on the forehead which does not appear to be infected. Cardiovascular: Heart sounds S1, S2. Lungs: Diminished breath sounds at the bases bilaterally. Abdomen: Obese, soft, nontender. Extremities: Edema 1+. IMPRESSION: 1. Recurrent urinary tract infection. 2. Congestive heart failure. 3. Azotemia. 4. Rule out COVID-19. 5. History of extended-spectrum beta-lactamase in the urine. Await cultures. Continue empiric ceftriaxone. Case discussed with patient's daughter present at the time of the examination. Contact and airborne precautions. Will follow. Thank you for the kind referral. BATSHEVA KRISHNAN M.D. [id number]
[2019-09-08] MEDS: ENOXAPARIN NA (PORCINE) 100 MG/1 ML DISP.SYRIN SQ SCH ×2 (13:58→22:19)
--- NOTE | 2019-09-08 15:05 | ECHO ---
Name: TARA MCFARLAND Exam:Adult Echocardiogram Study Date: 09/08/2019 02:16 PM Age: 88 yrs Reason For Study: CHF MMode/2D Measurements & Calculations IVSd: 1.1 cm Ao root diam: 3.2 cm LVIDd: 3.4 cm LA dimension: 2.8 cm LVIDs: 2.6 cm LVPWd: 1.5 cm LVPWs: 1.6 cm EDV(Teich): 47.3 ml ESV(Teich): 24.0 ml LVOT diam: 1.8 cm RV S Mac: 11.9 cm/sec Doppler Measurements & Calculations MV E max mac: 55.8 cm/sec Ao V2 max: 109.9 cm/sec MV A max mac: 102.2 cm/sec Ao max P.8 mmHg MV E/A: 0.55 JO ANN(V,D): 1.7 cm2 MV dec time: 0.11 sec LV V1 max P.2 mmHg PA V2 max: 88.6 cm/sec LV V1 max: 74.5 cm/sec PA max P.1 mmHg Lat Peak E' Mac: 2.5 cm/sec Lat E/e': 22.0 Left Ventricle Mild concentric LVH Mildly decreased LV function EF 49%. Abnormal diastolic compliance. Right Ventricle The right ventricle is normal in size and function. Atria Normal left and right atrial size and function. Mitral Valve The mitral valve is normal. There is trace mitral regurgitation. Tricuspid Valve The tricuspid valve is normal in structure and function. Aortic Valve The aortic valve is normal in structure and function. Pulmonic Valve The pulmonic valve is not well seen, but is grossly normal. Great Vessels The aortic root is normal size. Pericardium/Pleura There is no pericardial effusion. Interpretation Summary Mild concentric LVH Mildly decreased LV function EF 49% Abnormal diastolic compliance. The right ventricle is normal in size and function. Normal left and right atrial size and function. The mitral valve is normal. The tricuspid valve is normal in structure and function. The aortic valve is normal in structure and function. MD Tylre Hurley 09/08/2019 03:04 PM
[2019-09-08 16:11] LABS: HEMATOCRIT 34.2 % (32.4-45.2); HEMOGLOBIN 11.2 GM/dL (10.7-15.3); MCHC 32.8 g/dl (32.0-36.0); MEAN CELL VOLUME 79.2 fl (80-96); MEAN PLT VOLUME 7.9 fl (7.5-11.1); PLATELET COUNT 364 K/MM3 (134-434); RBC 4.32 M/mm3 (3.60-5.2); RDW 14.9 % (11.6-15.6); WHITE BLOOD COUNT 8.8 K/mm3 (4.0-10.0)
[2019-09-08 16:19] LABS: INR 1.06 (0.83-1.09); PROTHROMBIN TIME (PATIENT) 12.5 SEC (9.7-13.0)
[2019-09-08 16:22] LABS: ACTIVATED PTT 40.7 SECONDS (25.2-36.5)
[2019-09-08 16:33] LABS: ALBUMIN 3.2 g/dl (3.4-5.0); BILIRUBIN,TOTAL 0.3 mg/dL (0.2-1); BLOOD UREA NITROGEN 18.6 mg/dL (7-18); CALCIUM 8.7 mg/dL (8.5-10.1); CREATININE 1.4 mg/dL (0.55-1.3); MAGNESIUM 1.6 mg/dL (1.8-2.4); PHOSPHOROUS 4.3 mg/dL (2.5-4.9); TOT PROT 7.3 g/dl (6.4-8.2)
[2019-09-08 16:37] LABS: ALBUMIN 3.2 g/dl (3.4-5.0); BILIRUBIN,TOTAL 0.4 mg/dL (0.2-1); BLOOD UREA NITROGEN 18.5 mg/dL (7-18); CALCIUM 9.1 mg/dL (8.5-10.1); CREATININE 1.5 mg/dL (0.55-1.3); TOT PROT 7.6 g/dl (6.4-8.2)
[2019-09-09] MEDS: INSULIN SLIDING SCALE (NOVOLOG) 1 VIAL SQ SCH ×4 (06:31→21:54)
[2019-09-09 07:22] LABS: BASO % 0.6 % (0-2.0); EOS % 2.3 % (0-4.5); HEMATOCRIT 31.2 % (32.4-45.2); HEMOGLOBIN 10.1 GM/dL (10.7-15.3); LYMPH % 22.7 % (8-40); MCH 25.5 pg (25.7-33.7); MCHC 32.4 g/dl (32.0-36.0); MEAN CELL VOLUME 78.5 fl (80-96); NEUT % 66.4 % (42.8-82.8); PLATELET COUNT 350 K/MM3 (134-434); RBC 3.97 M/mm3 (3.60-5.2); RDW 14.5 % (11.6-15.6); WHITE BLOOD COUNT 7.4 K/mm3 (4.0-10.0)
[2019-09-09 08:17] LABS: ALBUMIN 2.8 g/dl (3.4-5.0); BILIRUBIN,TOTAL 0.5 mg/dL (0.2-1); BLOOD UREA NITROGEN 20.7 mg/dL (7-18); CALCIUM 8.3 mg/dL (8.5-10.1); CREATININE 1.4 mg/dL (0.55-1.3); POTASSIUM 3.8 mmol/L (3.5-5.1); TOT PROT 6.5 g/dl (6.4-8.2)
--- NOTE | 2019-09-09 09:15 | PN ---
Progress Note, Physician History of Present Illness: Chest pain syndrome, dyspnea, and bilateral lower extremity edema resolving with diuresis. - Current Medication List Current Medications: Active Medications Amlodipine Besylate (Norvasc -) 5 mg PO DAILY [facility] Last Admin: 09/08/19 10:20 Dose: 5 mg Documented by: Aspirin (Ecotrin -) 81 mg PO DAILY [facility] Last Admin: 09/08/19 10:20 Dose: 81 mg Documented by: Enoxaparin Sodium (Lovenox -) 100 mg SQ BID [facility] Last Admin: 09/08/19 22:19 Dose: 100 mg Documented by: Furosemide (Lasix Injection -) 40 mg IVPUSH DAILY [facility] Last Admin: 09/08/19 10:16 Dose: 40 mg Documented by: Ceftriaxone Sodium 1 gm/ (Dextrose) 50 mls @ 200 mls/hr IVPB DAILY [facility]; Protocol Last Admin: 09/08/19 10:16 Dose: 200 mls/hr Documented by: Insulin Aspart (Novolog Vial Sliding Scale -) 1 vial SQ ACHS [facility]; Protocol Last Admin: 09/09/19 06:31 Dose: Not Given Documented by: Nebivolol (Bystolic -) 10 mg PO DAILY [facility] Last Admin: 09/08/19 10:19 Dose: 10 mg Documented by: Valsartan (Diovan -) 160 mg PO DAILY [facility] Last Admin: 09/08/19 10:20 Dose: 160 mg Documented by: - Objective Vital Signs: Vital Signs Temperature 98.9 F 09/09/19 08:44 Pulse Rate 72 09/09/19 08:44 Respiratory Rate 18 09/09/19 08:44 Blood Pressure 165/84 09/09/19 08:44 O2 Sat by Pulse Oximetry (%) 97 09/08/19 21:00 Constitutional: Yes: No Distress, Calm Neck: Yes: Supple Cardiovascular: Yes: Regular Rate and Rhythm, Murmur (2/6) Respiratory: Yes: Regular, Diminished, On Nasal O2 Gastrointestinal: Yes: Normal Bowel Sounds, Soft Edema: No Labs: CBC, BMP 09/09/19 06:40 09/09/19 06:00 INR, PTT INR 1.06 (0.83-1.09) 09/08/19 14:55 - ....Imaging EKG: Report Reviewed (Tele: NSR) Problem List - Problems (1) Acute exacerbation of CHF (congestive heart failure) Code(s): I50.9 - HEART FAILURE, UNSPECIFIED Qualifiers: Heart failure type: diastolic Qualified Code(s): I50.33 - Acute on chronic diastolic (congestive) heart failure (2) Chest pain Code(s): R07.9 - CHEST PAIN, UNSPECIFIED Qualifiers: Chest pain type: precordial chest pain (3) Chronic kidney disease (CKD) Code(s): N18.9 - CHRONIC KIDNEY DISEASE, UNSPECIFIED Qualifiers: Chronic kidney disease stage: stage 1 Qualified Code(s): N18.1 - Chronic kidney disease, stage 1 (4) Hyperlipidemia Code(s): E78.5 - HYPERLIPIDEMIA, UNSPECIFIED Qualifiers: (5) Hypertension Code(s): I10 - ESSENTIAL (PRIMARY) HYPERTENSION Qualifiers: Assessment/Plan 09/08/2019 Echo: Mild cLVH with mild decreased LVEF 49%, abnl LV compliance, normal RV size and fxn, normal valve fxn 1. Chronic class I-II [place] [employer] classification diastolic left ventricular failure, no evidence of acute decompensation 2. CAD with evidence of demand ischemic injury angina pectoris 3. Mitral valve regurgitation mild in severity 4. Heart murmur related to aortic valve sclerosis with no evidence of aortic valve stenosis 5. Tricuspid valve regurgitation mild in severity 6. Hypertensive cardiovascular disease, labile blood pressure not at goal 7. Insulin-dependent diabetes mellitus 8. Hypercholesterolemia 9. History of peripheral vascular disease 10. History of meningioma 11. History of basal cell carcinoma/forehead post resection 12. History of lung carcinoma post resection 13. Chronic kidney disease 14. History of deep vein thrombosis/lower extremity 15. Hyponatremia PLAN: 1. Continue Bystolic 10 qd 2. Continue Diovan 160 qd with close monitoring of renal function 3. Continue Norvasc 5 qd 4. Change Lasix to Aldactone 25 po qd with close monitoring of diuretic response, renal function and electrolytes 4. Continue daily ASA 81 qd 5. Echocardiography results reviewed 6. Empiric Rocephin course for recurrent UTI per C&S
--- NOTE | 2019-09-09 09:44 | PN ---
Progress Note, Physician - Current Medication List Current Medications: Active Medications Amlodipine Besylate (Norvasc -) 5 mg PO DAILY [facility] Last Admin: 09/08/19 10:20 Dose: 5 mg Documented by: Aspirin (Ecotrin -) 81 mg PO DAILY [facility] Last Admin: 09/08/19 10:20 Dose: 81 mg Documented by: Enoxaparin Sodium (Lovenox -) 100 mg SQ BID [facility] Last Admin: 09/08/19 22:19 Dose: 100 mg Documented by: Furosemide (Lasix Injection -) 40 mg IVPUSH DAILY [facility] Last Admin: 09/08/19 10:16 Dose: 40 mg Documented by: Ceftriaxone Sodium 1 gm/ (Dextrose) 50 mls @ 200 mls/hr IVPB DAILY [facility]; Protocol Last Admin: 09/08/19 10:16 Dose: 200 mls/hr Documented by: Insulin Aspart (Novolog Vial Sliding Scale -) 1 vial SQ ACHS [facility]; Protocol Last Admin: 09/09/19 06:31 Dose: Not Given Documented by: Nebivolol (Bystolic -) 10 mg PO DAILY [facility] Last Admin: 09/08/19 10:19 Dose: 10 mg Documented by: Valsartan (Diovan -) 160 mg PO DAILY [facility] Last Admin: 09/08/19 10:20 Dose: 160 mg Documented by: - Objective Vital Signs: Vital Signs Temperature 98.9 F 09/09/19 08:44 Pulse Rate 72 09/09/19 08:44 Respiratory Rate 18 09/09/19 08:44 Blood Pressure 165/84 09/09/19 08:44 O2 Sat by Pulse Oximetry (%) 97 09/08/19 21:00 Cardiovascular: Yes: Regular Rate and Rhythm Respiratory: Yes: Regular, CTA Bilaterally Gastrointestinal: Yes: Normal Bowel Sounds, Soft Labs: CBC, BMP 09/09/19 06:40 09/09/19 06:00 INR, PTT INR 1.06 (0.83-1.09) 09/08/19 14:55 Problem List - Problems (1) UTI (urinary tract infection) Assessment/Plan: UA- +2 protein, +2 leukocyte esterase, 179 WBC, >10,000 Bacteria Urine Culture-pending Microbiology 09/07/19 21:33 Urine - Urine - Catheterized Urine Culture - Preliminary Lactose Fermenting Neg Bacilli Continue to treat empirically with Ceftriaxone, until UC resulted Monitor CBC Monitor vitals Code(s): N39.0 - URINARY TRACT INFECTION, SITE NOT SPECIFIED (2) CHF (congestive heart failure) Assessment/Plan: BNP 1420 Chest Xray image- pulm vascular congestion Cardiology consult Lasix Monitor CBC, CMP O2 Code(s): I50.9 - HEART FAILURE, UNSPECIFIED (3) Functional quadriplegia Assessment/Plan: PT Code(s): R53.2 - FUNCTIONAL QUADRIPLEGIA (4) Chest pain Assessment/Plan: atypical see above Resolved Code(s): R07.9 - CHEST PAIN, UNSPECIFIED Qualifiers: Chest pain type: precordial chest pain Qualified Code(s): R07.2 - Precordial pain (5) Dementia Assessment/Plan: Stable No home med Fall Precautions Complete immobility due to frailty, end-stage Dementia Requires total care Turn Q2h Shanti Lift as needed Heel Protectors Fall Precautions Code(s): F03.90 - UNSPECIFIED DEMENTIA WITHOUT BEHAVIORAL DISTURBANCE (6) Diabetes Assessment/Plan: BGMs ISS Continue Levemir Monitor renal function Code(s): E11.9 - TYPE 2 DIABETES MELLITUS WITHOUT COMPLICATIONS Qualifiers: (7) Elevated troponin Assessment/Plan: Likely secondary to demand ischemia Serial Enzymes Cardiology consult Continue cardiac monitoring Code(s): R79.89 - OTHER SPECIFIED ABNORMAL FINDINGS OF BLOOD CHEMISTRY (8) Hypertension Assessment/Plan: suboptimal Hydralazine given in ED confirm home meds with daughter Monitor BP Code(s): I10 - ESSENTIAL (PRIMARY) HYPERTENSION Qualifiers: (9) Anemia Assessment/Plan: monitor Code(s): D64.9 - ANEMIA, UNSPECIFIED
[2019-09-09] MEDS ORDERED: cefTRIAXone SODIUM 1 GM VIAL ONE (10:39)
[2019-09-09] MEDS ORDERED: DEXTROSE 5%-WATER - 50 ML IVPB ONE (10:39)
[2019-09-09] MEDS: NEBIVOLOL 10 MG TABLET (FP) PO SCH (10:44)
[2019-09-09] MEDS: CEFTRIAXONE 1 GM in DEXTROSE 5%-WATER - 50 ML IVPB SCH (10:44)
[2019-09-09] MEDS: FUROSEMIDE 40 MG/4 ML INJECTABLE VIAL IVPUSH SCH (10:44)
[2019-09-09] MEDS: amLODIPine BESYLATE 5 MG TABLET (FP) PO SCH (10:44)
[2019-09-09] MEDS: ASPIRIN COATED 81 MG TABLET.EC PO SCH (10:45)
[2019-09-09] MEDS: VALSARTAN 160 MG TABLET (UD) PO SCH (10:45)
[2019-09-09] MEDS: ENOXAPARIN NA (PORCINE) 100 MG/1 ML DISP.SYRIN SQ SCH ×2 (10:45→21:52)
--- NOTE | 2019-09-09 12:44 | PN ---
Progress Note, Physician History of Present Illness: Pt seen and examined at bedside. She is awake and alert. She feels breathing is improving. - Current Medication List Current Medications: Active Medications Amlodipine Besylate (Norvasc -) 5 mg PO DAILY [facility] Last Admin: 09/09/19 10:44 Dose: 5 mg Documented by: Aspirin (Ecotrin -) 81 mg PO DAILY [facility] Last Admin: 09/09/19 10:45 Dose: 81 mg Documented by: Enoxaparin Sodium (Lovenox -) 100 mg SQ BID [facility] Last Admin: 09/09/19 10:45 Dose: 100 mg Documented by: Ceftriaxone Sodium 1 gm/ (Dextrose) 50 mls @ 200 mls/hr IVPB DAILY [facility]; Protoc ol Last Admin: 09/09/19 10:44 Dose: 200 mls/hr Documented by: Insulin Aspart (Novolog Vial Sliding Scale -) 1 vial SQ ACHS [facility]; Protocol Last Admin: 09/09/19 11:39 Dose: 2 unit Documented by: Nebivolol (Bystolic -) 10 mg PO DAILY [facility] Last Admin: 09/09/19 10:44 Dose: 10 mg Documented by: Spironolactone (Aldactone -) 25 mg PO DAILY [facility] Valsartan (Diovan -) 160 mg PO DAILY [facility] Last Admin: 09/09/19 10:45 Dose: 160 mg Documented by: - Objective Vital Signs: Vital Signs Temperature 98.9 F 09/09/19 08:44 Pulse Rate 72 09/09/19 08:44 Respiratory Rate 18 09/09/19 08:44 Blood Pressure 165/84 09/09/19 08:44 O2 Sat by Pulse Oximetry (%) 97 09/08/19 21:00 Constitutional: Yes: Calm Eyes: Yes: Conjunctiva Clear HENT: Yes: Atraumatic Neck: Yes: Supple Cardiovascular: Yes: S1, S2 Respiratory: Yes: CTA Bilaterally Gastrointestinal: Yes: Soft Genitourinary: Yes: Incontinence Musculoskeletal: Yes: Muscle Weakness Edema: Yes Edema: LLE: 1+, RLE: 1+ Neurological: Yes: Oriented Psychiatric: Yes: Oriented Labs: CBC, BMP 09/09/19 06:40 09/09/19 06:00 INR, PTT INR 1.06 (0.83-1.09) 09/08/19 14:55 Problem List - Problems (1) CHF (congestive heart failure) Code(s): I50.9 - HEART FAILURE, UNSPECIFIED (2) Hyponatremia Code(s): E87.1 - HYPO-OSMOLALITY AND HYPONATREMIA (3) Chronic kidney disease (CKD) Code(s): N18.9 - CHRONIC KIDNEY DISEASE, UNSPECIFIED Qualifiers: Chronic kidney disease stage: stage 1 Qualified Code(s): N18.1 - Chronic kidney disease, stage 1 Assessment/Plan Current Medications Generic Name Dose Route Start Last Admin Trade Name Michael PRN Reason Stop Dose Admin Amlodipine Besylate 5 mg 09/08/19 10:00 09/09/19 10:44 Norvasc - PO 5 mg DAILY [facility] Administration Aspirin 81 mg 09/08/19 10:00 09/09/19 10:45 Ecotrin - PO 81 mg DAILY [facility] Administration Enoxaparin Sodium 100 mg 09/08/19 13:30 09/09/19 10:45 Lovenox - SQ 100 mg BID [facility] Administration Ceftriaxone Sodium 1 gm/ 50 mls @ 200 mls/hr 09/08/19 10:00 09/09/19 10:44 Dextrose IVPB 200 mls/hr DAILY [facility] Administration Protocol Insulin Aspart 1 vial 09/08/19 11:00 09/09/19 11:39 Novolog Vial Sliding Scale - SQ 2 unit ACHS [facility] Administration Protocol Nebivolol 10 mg 09/08/19 10:00 09/09/19 10:44 Bystolic - PO 10 mg DAILY [facility] Administration Spironolactone 25 mg 09/10/19 10:00 Aldactone - PO DAILY [facility] Valsartan 160 mg 09/08/19 10:00 09/09/19 10:45 Diovan - PO 160 mg DAILY [facility] Administration Impression 1. chest pain 2. CKD 3. HTN 4. hyponatremia 5. hx nsaid use 6. UTI 7. dementia 8. dvt Plan - lasix changed to aldactone - monitor lytes - cardio input apperciated - restrict free water - hyponatremia is chronic - follow cxr - discussed with family
--- NOTE | 2019-09-09 18:00 | CONSULT ---
Consult - text type - Consultation Consultation Note: NEUROLOGY CONSULTATION is greatly appreciated: Events reviewed and discussed with daughter, Svetlana, at the bedside. Lives with Svetlana. HH Aide 10 hrs x 6 days Now 88 yo this RH woman with h/o HTN, DM. 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 Maintained on: Acetaminophen; Aspirin 81; Atorvastatin; Fenofibrate,Micronized; Vascepa; Linzess; Insulins; Nitrofurantoin; Valsartan; and hydrALAZINE HCL. Last seen by me in 2011 for left hemicranial headaches c/m. Meningioma found coincidently. Walked with walker at that time. Since then, Svetlana describes gradual deterioration of gait and cognition. Non-ambulatory x 1 1/2 years . Requires assist x 1 for transfers. Poor short term memory and orientation. Incontinent of urine x few years (in diaper). Now admitted with "increasing weakness." Urinary XWG=389. Now on ceftriaxone. CT of head (reviewed): Large (3x3 cm) left sided clival meningioma displacing the kyleigh to the right with moderate obstructive hydrocephalus (enlarged 3rd V). Neither the meningioma, nor the degreee of hydrocephalus seem sig increased from the studies of 2012, 2019. Increased atrophy. BERTRAND: Neck supple. Neuro: Awake, alert. Ox "[place].' No month or year. +Glabella, grasps. Sparse, fluent speech CN: Full parker to threat. Full EOM's. No facial. Swallowing pureed dinner without difficulty Motor. No drift, tremor, or cogwheeling. Good ankle dorsiflexion. Depressed LE reflexes. B/L [place] No obvious dystaxia Withdraws all 4's to pinch IMP: Moderately severe, B/L cerebral dysfunction. This may represent a combination of chronic hydrocephalus with superimposed Alzheimer's Disease. The increased dysfunction precipitating admission is due to Toxic Metabolic encephalopathy (UTI). SUGGEST: Continue antibiotics and hydration Bedside PT vs. contractures and decubitae. 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 Continue nitrofurantoin and perform periodic out pt U/A to prevent recurrent UTI's. Thank you very much, Ethan Sanders MD
[2019-09-10] MEDS: INSULIN SLIDING SCALE (NOVOLOG) 1 VIAL SQ SCH ×4 (06:35→21:24)
[2019-09-10 08:06] LABS: BASO % 1.2 % (0-2.0); HEMATOCRIT 32.1 % (32.4-45.2); HEMOGLOBIN 10.3 GM/dL (10.7-15.3); LYMPH % 27.2 % (8-40); MCH 25.2 pg (25.7-33.7); MCHC 31.9 g/dl (32.0-36.0); MEAN PLT VOLUME 7.5 fl (7.5-11.1); MONO % 7.7 % (3.8-10.2); NEUT % 61.9 % (42.8-82.8); PLATELET COUNT 347 K/MM3 (134-434); RBC 4.07 M/mm3 (3.60-5.2); RDW 14.5 % (11.6-15.6); WHITE BLOOD COUNT 7.2 K/mm3 (4.0-10.0)
[2019-09-10 08:15] LABS: ALBUMIN 2.7 g/dl (3.4-5.0); BILIRUBIN,TOTAL 0.4 mg/dL (0.2-1); BLOOD UREA NITROGEN 34.6 mg/dL (7-18); CALCIUM 8.3 mg/dL (8.5-10.1); CREATININE 1.6 mg/dL (0.55-1.3); POTASSIUM 3.9 mmol/L (3.5-5.1); TOT PROT 6.4 g/dl (6.4-8.2)
--- NOTE | 2019-09-10 08:40 | PN ---
Progress Note, Physician - Current Medication List Current Medications: Active Medications Amlodipine Besylate (Norvasc -) 5 mg PO DAILY [facility] Last Admin: 09/09/19 10:44 Dose: 5 mg Documented by: Aspirin (Ecotrin -) 81 mg PO DAILY [facility] Last Admin: 09/09/19 10:45 Dose: 81 mg Documented by: Enoxaparin Sodium (Lovenox -) 100 mg SQ BID [facility] Last Admin: 09/09/19 21:52 Dose: 100 mg Documented by: Insulin Aspart (Novolog Vial Sliding Scale -) 1 vial SQ ACHS [facility]; Protocol Last Admin: 09/10/19 06:35 Dose: Not Given Documented by: Nebivolol (Bystolic -) 10 mg PO DAILY [facility] Last Admin: 09/09/19 10:44 Dose: 10 mg Documented by: Nitrofurantoin Macrocrystals (Macrodantin -) 50 mg PO Q6HPO [facility] Spironolactone (Aldactone -) 25 mg PO DAILY [facility] Valsartan (Diovan -) 160 mg PO DAILY [facility] Last Admin: 09/09/19 10:45 Dose: 160 mg Documented by: - Objective Vital Signs: Vital Signs Temperature 97.7 F 09/10/19 06:00 Pulse Rate 75 09/10/19 06:00 Respiratory Rate 18 09/10/19 06:00 Blood Pressure 142/69 09/10/19 06:00 O2 Sat by Pulse Oximetry (%) 99 09/09/19 21:00 Cardiovascular: Yes: Regular Rate and Rhythm Respiratory: Yes: Regular, CTA Bilaterally Gastrointestinal: Yes: Normal Bowel Sounds, Soft Labs: CBC, BMP 09/10/19 05:43 09/10/19 05:43 INR, PTT INR 1.06 (0.83-1.09) 09/08/19 14:55 Problem List - Problems (1) UTI (urinary tract infection) Assessment/Plan: UA- +2 protein, +2 leukocyte esterase, 179 WBC, >10,000 Bacteria Urine Culture-pending Microbiology 09/07/19 21:33 Urine - Urine - Catheterized Urine Culture - Preliminary Escherichia Coli Esbl Management Department Chair dc Ceftriaxone, macrobid if ok with id Monitor CBC Monitor vitals Code(s): N39.0 - URINARY TRACT INFECTION, SITE NOT SPECIFIED (2) CHF (congestive heart failure) Assessment/Plan: BNP 1420 Chest Xray image- pulm vascular congestion Cardiology consult Lasix 20 po Monitor CBC, CMP O2 Code(s): I50.9 - HEART FAILURE, UNSPECIFIED (3) Functional quadriplegia Assessment/Plan: PT Code(s): R53.2 - FUNCTIONAL QUADRIPLEGIA (4) Chest pain Assessment/Plan: atypical see above Resolved Code(s): R07.9 - CHEST PAIN, UNSPECIFIED Qualifiers: Chest pain type: precordial chest pain (5) Dementia Assessment/Plan: Stable No home med Fall Precautions Complete immobility due to frailty, end-stage Dementia Requires total care Turn Q2h Shanti Lift as needed Heel Protectors Fall Precautions Code(s): F03.90 - UNSPECIFIED DEMENTIA WITHOUT BEHAVIORAL DISTURBANCE (6) Diabetes Assessment/Plan: BGMs ISS Continue Levemir Monitor renal function Code(s): E11.9 - TYPE 2 DIABETES MELLITUS WITHOUT COMPLICATIONS Qualifiers: (7) Elevated troponin Assessment/Plan: Likely secondary to demand ischemia Serial Enzymes noted Cardiology consult appreciated Code(s): R79.89 - OTHER SPECIFIED ABNORMAL FINDINGS OF BLOOD CHEMISTRY (8) Hypertension Assessment/Plan: suboptimal Hydralazine given in ED confirm home meds with daughter Monitor BP Code(s): I10 - ESSENTIAL (PRIMARY) HYPERTENSION Qualifiers: (9) Anemia Assessment/Plan: monitor Code(s): D64.9 - ANEMIA, UNSPECIFIED (10) DVT (deep venous thrombosis) Assessment/Plan: eliquis Code(s): I82.409 - ACUTE EMBOLISM AND THOMBOS UNSP DEEP VN UNSP LOWER EXTREMITY Qualifiers: DVT location: lower extremity Chronicity: chronic Laterality: left
--- NOTE | 2019-09-10 09:33 | PN ---
Progress Note, Physician History of Present Illness: Chest pain syndrome, dyspnea, and bilateral lower extremity edema resolving with diuresis. - Current Medication List Current Medications: Active Medications Amlodipine Besylate (Norvasc -) 5 mg PO DAILY [facility] Last Admin: 09/09/19 10:44 Dose: 5 mg Documented by: Apixaban (Eliquis -) 2.5 mg PO BID [facility] Aspirin (Ecotrin -) 81 mg PO DAILY [facility] Last Admin: 09/09/19 10:45 Dose: 81 mg Documented by: Furosemide (Lasix -) 20 mg PO DAILY [facility] Insulin Aspart (Novolog Vial Sliding Scale -) 1 vial SQ ACHS [facility]; Protocol Last Admin: 09/10/19 06:35 Dose: Not Given Documented by: Nebivolol (Bystolic -) 10 mg PO DAILY [facility] Last Admin: 09/09/19 10:44 Dose: 10 mg Documented by: Nitrofurantoin Macrocrystals (Macrodantin -) 50 mg PO Q6HPO [facility] Spironolactone (Aldactone -) 25 mg PO DAILY [facility] Valsartan (Diovan -) 160 mg PO DAILY [facility] Last Admin: 09/09/19 10:45 Dose: 160 mg Documented by: - Objective Vital Signs: Vital Signs Temperature 97.9 F 09/10/19 08:48 Pulse Rate 70 09/10/19 08:48 Respiratory Rate 18 09/10/19 08:48 Blood Pressure 144/65 09/10/19 08:48 O2 Sat by Pulse Oximetry (%) 99 09/09/19 21:00 Constitutional: Yes: No Distress, Calm Neck: Yes: Supple Cardiovascular: Yes: Regular Rate and Rhythm Respiratory: Yes: Regular, Diminished Gastrointestinal: Yes: Normal Bowel Sounds, Soft Edema: No Labs: CBC, BMP 09/10/19 05:43 09/10/19 05:43 INR, PTT INR 1.06 (0.83-1.09) 09/08/19 14:55 - ....Imaging EKG: Report Reviewed (Tele: NSR) Problem List - Problems (1) Acute exacerbation of CHF (congestive heart failure) Code(s): I50.9 - HEART FAILURE, UNSPECIFIED Qualifiers: Heart failure type: diastolic Qualified Code(s): I50.33 - Acute on chronic diastolic (congestive) heart failure (2) Chest pain Code(s): R07.9 - CHEST PAIN, UNSPECIFIED Qualifiers: Chest pain type: precordial chest pain (3) Chronic kidney disease (CKD) Code(s): N18.9 - CHRONIC KIDNEY DISEASE, UNSPECIFIED Qualifiers: Chronic kidney disease stage: stage 1 Qualified Code(s): N18.1 - Chronic kidney disease, stage 1 (4) Hyperlipidemia Code(s): E78.5 - HYPERLIPIDEMIA, UNSPECIFIED Qualifiers: (5) Hypertension Code(s): I10 - ESSENTIAL (PRIMARY) HYPERTENSION Qualifiers: Assessment/Plan 09/08/2019 Echo: Mild cLVH with mild decreased LVEF 49%, abnl LV compliance, normal RV size and fxn, normal valve fxn 1. Chronic class I-II [place] Heart [employer] classification diastolic left ventricular failure, no evidence of acute decompensation 2. CAD with evidence of demand ischemic injury angina pectoris 3. Mitral valve regurgitation mild in severity 4. Heart murmur related to aortic valve sclerosis with no evidence of aortic valve stenosis 5. Tricuspid valve regurgitation mild in severity 6. Hypertensive cardiovascular disease, labile blood pressure not at goal 7. Insulin-dependent diabetes mellitus 8. Hypercholesterolemia 9. History of peripheral vascular disease 10. History of meningioma 11. History of basal cell carcinoma/forehead post resection 12. History of lung carcinoma post resection 13. Chronic kidney disease 14. History of deep vein thrombosis/lower extremity 15. Hyponatremia 16. Toxic Metabolic encephalopathy (UTI) chronic hydrocephalus with superimposed Alzheimer's Disease. PLAN: 1. Continue Bystolic 10 qd 2. Continue Diovan 160 qd with close monitoring of renal function 3. Continue Norvasc 5 qd 4. Lasix 20 qd added to Aldactone 25 po qd with close monitoring of diuretic response, renal function and electrolytes 4. D/c ASA 81 qd as eliquis 2.5 bid added 5. Echocardiography results reviewed 6. Empiric Rocephin course for recurrent UTI per C&S
[2019-09-10] MEDS: NEBIVOLOL 10 MG TABLET (FP) PO SCH (09:45)
[2019-09-10] MEDS: SPIRONOLACTONE 25 MG TABLET PO SCH (09:46)
[2019-09-10] MEDS: FUROSEMIDE 20 MG TABLET (FP) PO SCH (09:46)
[2019-09-10] MEDS: amLODIPine BESYLATE 5 MG TABLET (FP) PO SCH (09:46)
[2019-09-10] MEDS: APIXABAN 2.5 MG TABLET PO SCH ×2 (09:46→21:20)
[2019-09-10] MEDS: ASPIRIN COATED 81 MG TABLET.EC PO SCH (09:46)
[2019-09-10] MEDS: VALSARTAN 160 MG TABLET (UD) PO SCH (09:46)
[2019-09-10] MEDS ORDERED: NITROFURANTOIN MACROCRYSTAL 50 MG CAPSULE (FP) PO SCH ×2 (12:00)
--- NOTE | 2019-09-10 14:00 | PN ---
Progress Note, Physician History of Present Illness: Pt seen and examined at bedside. She is out of bed to chair. She feels that her breathing is improved. She denies chest pain. - Current Medication List Current Medications: Active Medications Amlodipine Besylate (Norvasc -) 5 mg PO DAILY [facility] Last Admin: 09/10/19 09:46 Dose: 5 mg Documented by: Apixaban (Eliquis -) 2.5 mg PO BID [facility] Last Admin: 09/10/19 09:46 Dose: 2.5 mg Documented by: Aspirin (Ecotrin -) 81 mg PO DAILY [facility] Last Admin: 09/10/19 09:46 Dose: 81 mg Documented by: Furosemide (Lasix -) 20 mg PO DAILY [facility] Last Admin: 09/10/19 09:46 Dose: 20 mg Documented by: Insulin Aspart (Novolog Vial Sliding Scale -) 1 vial SQ [facility]; Protocol Last Admin: 09/10/19 11:55 Dose: 2 unit Documented by: Nebivolol (Bystolic -) 10 mg PO DAILY [facility] Last Admin: 09/10/19 09:45 Dose: 10 mg Documented by: Nitrofurantoin Macrocrystals (Macrodantin -) 50 mg PO Q6HPO [facility] Spironolactone (Aldactone -) 25 mg PO DAILY [facility] Last Admin: 09/10/19 09:46 Dose: 25 mg Documented by: Valsartan (Diovan -) 160 mg PO DAILY [facility] Last Admin: 09/10/19 09:46 Dose: 160 mg Documented by: - Objective Vital Signs: Vital Signs Temperature 97.9 F 09/10/19 08:48 Pulse Rate 70 09/10/19 08:48 Respiratory Rate 18 09/10/19 09:00 Blood Pressure 144/65 09/10/19 08:48 O2 Sat by Pulse Oximetry (%) 97 09/10/19 09:00 Constitutional: Yes: Calm Eyes: Yes: Conjunctiva Clear HENT: Yes: Atraumatic Neck: Yes: Supple Cardiovascular: Yes: S1, S2 Respiratory: Yes: CTA Bilaterally Gastrointestinal: Yes: Soft Genitourinary: Yes: WNL Musculoskeletal: Yes: WNL Edema: No Integumentary: Yes: WNL Neurological: Yes: Oriented Labs: CBC, BMP 09/10/19 05:43 09/10/19 05:43 INR, PTT INR 1.06 (0.83-1.09) 09/08/19 14:55 Problem List - Problems (1) CHF (congestive heart failure) Code(s): I50.9 - HEART FAILURE, UNSPECIFIED (2) Hyponatremia Code(s): E87.1 - HYPO-OSMOLALITY AND HYPONATREMIA (3) Chronic kidney disease (CKD) Code(s): N18.9 - CHRONIC KIDNEY DISEASE, UNSPECIFIED Qualifiers: Chronic kidney disease stage: stage 1 Qualified Code(s): N18.1 - Chronic kidney disease, stage 1 Assessment/Plan Current Medications Generic Name Dose Route Start Last Admin Trade Name Freq PRN Reason Stop Dose Admin Amlodipine Besylate 5 mg 09/08/19 10:00 09/10/19 09:46 Norvasc - PO 5 mg DAILY [facility] Administration Apixaban 2.5 mg 09/10/19 10:00 09/10/19 09:46 Eliquis - PO 2.5 mg BID [facility] Administration Aspirin 81 mg 09/08/19 10:00 09/10/19 09:46 Ecotrin - PO 81 mg DAILY [facility] Administration Furosemide 20 mg 09/10/19 10:00 09/10/19 09:46 Lasix - PO 20 mg DAILY [facility] Administration Insulin Aspart 1 vial 09/08/19 11:00 09/10/19 11:55 Novolog Vial Sliding Scale - SQ 2 unit ACHS [facility] Administration Protocol Nebivolol 10 mg 09/08/19 10:00 09/10/19 09:45 Bystolic - PO 10 mg DAILY [facility] Administration Nitrofurantoin Macrocrystals 50 mg 09/10/19 12:00 Macrodantin - PO Q6HPO [facility] Spironolactone 25 mg 09/10/19 10:00 09/10/19 09:46 Aldactone - PO 25 mg DAILY [facility] Administration Valsartan 160 mg 09/08/19 10:00 09/10/19 09:46 Diovan - PO 160 mg DAILY [facility] Administration Impression 1. chest pain 2. CKD 3. HTN 4. hyponatremia 5. hx nsaid use 6. UTI 7. dementia 8. dvt Plan - cont diuretics - monitor sodium closely - sodium is stable - cont to monitor sodium - avoid nsaids - avoid nephrotoxins
--- NOTE | 2019-09-10 22:25 | PN ---
Progress Note, Physician History of Present Illness: AWAKE, ALERT NO COMPLAINTS VIA STILL CLEANER AFEBRILE WBC WNL URINE C/S ESBL - Current Medication List Current Medications: Active Medications Amlodipine Besylate (Norvasc -) 5 mg PO DAILY [facility] Last Admin: 09/10/19 09:46 Dose: 5 mg Documented by: Apixaban (Eliquis -) 2.5 mg PO BID [facility] Last Admin: 09/10/19 21:20 Dose: 2.5 mg Documented by: Aspirin (Ecotrin -) 81 mg PO DAILY [facility] Last Admin: 09/10/19 09:46 Dose: 81 mg Documented by: Furosemide (Lasix -) 20 mg PO DAILY [facility] Last Admin: 09/10/19 09:46 Dose: 20 mg Documented by: Insulin Aspart (Novolog Vial Sliding Scale -) 1 vial SQ [facility]; Protocol Last Admin: 09/10/19 21:24 Dose: Not Given Documented by: Nebivolol (Bystolic -) 10 mg PO DAILY [facility] Last Admin: 09/10/19 09:45 Dose: 10 mg Documented by: Nitrofurantoin Macrocrystals (Macrodantin -) 50 mg PO Q6HPO [facility] Spironolactone (Aldactone -) 25 mg PO DAILY [facility] Last Admin: 09/10/19 09:46 Dose: 25 mg Documented by: Valsartan (Diovan -) 160 mg PO DAILY [facility] Last Admin: 09/10/19 09:46 Dose: 160 mg Documented by: - Objective Vital Signs: Vital Signs Temperature 97.7 F 09/10/19 18:00 Pulse Rate 76 09/10/19 18:00 Respiratory Rate 18 09/10/19 18:00 Blood Pressure 152/78 09/10/19 18:00 O2 Sat by Pulse Oximetry (%) 97 09/10/19 09:00 Constitutional: Yes: No Distress Eyes: Yes: Conjunctiva Clear Cardiovascular: Yes: Regular Rate and Rhythm, S1, S2 Respiratory: Yes: CTA Bilaterally Gastrointestinal: Yes: Normal Bowel Sounds Edema: No Labs: CBC, BMP 09/10/19 05:43 09/10/19 05:43 INR, PTT INR 1.06 (0.83-1.09) 09/08/19 14:55 Assessment/Plan RECURRENT UTI ESBL/ CRE CHF [facility] NITROFURANTOIN COMPLETE 7D COURSE CONTACT PRECAUTIONS
[2019-09-11] MEDS: INSULIN SLIDING SCALE (NOVOLOG) 1 VIAL SQ SCH ×2 (06:18→12:12)
[2019-09-11 08:51] VITALS: PULSE 66
[2019-09-11] MEDS: NEBIVOLOL 10 MG TABLET (FP) PO SCH (09:55)
--- NOTE | 2019-09-11 09:55 | PN ---
Progress Note (short form) - Note Progress Note: No acute cardiac issues. Vital Signs Temperature 98.3 F 09/11/19 08:50 Pulse Rate 66 09/11/19 08:50 Respiratory Rate 18 09/11/19 08:50 Blood Pressure 144/68 09/11/19 08:50 O2 Sat by Pulse Oximetry (%) 96 09/10/19 21:00 Cardiovascular: Yes: Regular Rate and Rhythm Respiratory: Yes: Regular, Diminished Gastrointestinal: Yes: Normal Bowel Sounds, Soft Edema: No Labs: CBC, BMP 09/10/19 05:43 09/10/19 05:43 Active Medications Amlodipine Besylate (Norvasc -) 5 mg PO DAILY [facility] Last Admin: 09/10/19 09:46 Dose: 5 mg Documented by: Apixaban (Eliquis -) 2.5 mg PO BID [facility] Last Admin: 09/10/19 21:20 Dose: 2.5 mg Documented by: Aspirin (Ecotrin -) 81 mg PO DAILY [facility] Last Admin: 09/10/19 09:46 Dose: 81 mg Documented by: Furosemide (Lasix -) 20 mg PO DAILY [facility] Last Admin: 09/10/19 09:46 Dose: 20 mg Documented by: Insulin Aspart (Novolog Vial Sliding Scale -) 1 vial SQ [facility]; Protocol Last Admin: 09/11/19 06:18 Dose: 2 unit Documented by: Nebivolol (Bystolic -) 10 mg PO DAILY [facility] Last Admin: 09/10/19 09:45 Dose: 10 mg Documented by: Nitrofurantoin Macrocrystals (Macrodantin -) 50 mg PO Q6HPO [facility] Spironolactone (Aldactone -) 25 mg PO DAILY [facility] Last Admin: 09/10/19 09:46 Dose: 25 mg Documented by: Valsartan (Diovan -) 160 mg PO DAILY [facility] Last Admin: 09/10/19 09:46 Dose: 160 mg Documented by: - ....Imaging EKG: Report Reviewed (Tele: NSR) Problem List - Problems (1) Acute exacerbation of CHF (congestive heart failure) Code(s): I50.9 - HEART FAILURE, UNSPECIFIED Qualifiers: Heart failure type: diastolic Qualified Code(s): I50.33 - Acute on chronic diastolic (congestive) heart failure (2) Chest pain Code(s): R07.9 - CHEST PAIN, UNSPECIFIED Qualifiers: Chest pain type: precordial chest pain (3) Chronic kidney disease (CKD) Code(s): N18.9 - CHRONIC KIDNEY DISEASE, UNSPECIFIED Qualifiers: Chronic kidney disease stage: stage 1 Qualified Code(s): N18.1 - Chronic kidney disease, stage 1 (4) Hyperlipidemia Code(s): E78.5 - HYPERLIPIDEMIA, UNSPECIFIED Qualifiers: (5) Hypertension Code(s): I10 - ESSENTIAL (PRIMARY) HYPERTENSION Qualifiers: Assessment/Plan 09/08/2019 Echo: Mild cLVH with mild decreased LVEF 49%, abnl LV compliance, normal RV size and fxn, normal valve fxn 1. Chronic class I-II [place] [employer] classification diastolic left ventricular failure, no evidence of acute decompensation 2. CAD with evidence of demand ischemic injury angina pectoris 3. Mitral valve regurgitation mild in severity 4. Heart murmur related to aortic valve sclerosis with no evidence of aortic valve stenosis 5. Tricuspid valve regurgitation mild in severity 6. Hypertensive cardiovascular disease, labile blood pressure not at goal 7. Insulin-dependent diabetes mellitus 8. Hypercholesterolemia 9. History of peripheral vascular disease 10. History of meningioma 11. History of basal cell carcinoma/forehead post resection 12. History of lung carcinoma post resection 13. Chronic kidney disease 14. History of deep vein thrombosis/lower extremity 15. Hyponatremia 16. Toxic Metabolic encephalopathy (UTI) chronic hydrocephalus with superimposed Alzheimer's Disease. PLAN: Stable cardiacwise. 1. Continue Bystolic 10 qd 2. Continue Diovan 160 qd with close monitoring of renal function 3. Continue Norvasc 5 qd 4. Lasix 20 qd added to Aldactone 25 po qd with close monitoring of diuretic response, renal function and electrolytes 5.D/C ASA
[2019-09-11] MEDS: amLODIPine BESYLATE 5 MG TABLET (FP) PO SCH (09:56)
[2019-09-11] MEDS: SPIRONOLACTONE 25 MG TABLET PO SCH (09:56)
[2019-09-11] MEDS: APIXABAN 2.5 MG TABLET PO SCH (09:56)
[2019-09-11] MEDS: VALSARTAN 160 MG TABLET (UD) PO SCH (09:57)
[2019-09-11] MEDS: FUROSEMIDE 20 MG TABLET (FP) PO SCH (09:57)
--- NOTE | 2019-09-11 10:43 | DS ---
Physical Examination Vital Signs: Vital Signs Temperature 98.3 F 09/11/19 08:50 Pulse Rate 66 09/11/19 08:50 Respiratory Rate 18 09/11/19 08:50 Blood Pressure 144/68 09/11/19 08:50 O2 Sat by Pulse Oximetry (%) 96 09/10/19 21:00 Cardiovascular: Yes: Regular Rate and Rhythm Respiratory: Yes: Regular, CTA Bilaterally Gastrointestinal: Yes: Normal Bowel Sounds, Soft Labs: CBC, BMP 09/10/19 05:43 09/10/19 05:43 Discharge Summary Problems reviewed: Yes Reason For Visit: URINARY TRACT INFECTION, CONGESTIVE HEART FAILURE Current Active Problems Acute exacerbation of CHF (congestive heart failure) (Acute) CHF (congestive heart failure) (Acute) Elevated troponin (Acute) Functional quadriplegia (Acute) Hyponatremia (Acute) Lower extremity edema (Acute) UTI (urinary tract infection) (Acute) Hospital Course: - Problems (1) UTI (urinary tract infection) Assessment/Plan: UA- +2 protein, +2 leukocyte esterase, 179 WBC, >10,000 Bacteria Urine Culture-pending Microbiology 09/07/19 21:33 Urine - Urine - Catheterized Urine Culture - Preliminary Escherichia Coli Esbl System Development Manager dc Ceftriaxone, macrobid if ok with id Monitor CBC Monitor vitals Code(s): N39.0 - URINARY TRACT INFECTION, SITE NOT SPECIFIED (2) CHF (congestive heart failure) Assessment/Plan: BNP 1420 Chest Xray image- pulm vascular congestion Cardiology consult Lasix 20 po Monitor CBC, CMP O2 Code(s): I50.9 - HEART FAILURE, UNSPECIFIED (3) Functional quadriplegia Assessment/Plan: PT Code(s): R53.2 - FUNCTIONAL QUADRIPLEGIA (4) Chest pain Assessment/Plan: atypical see above Resolved Code(s): R07.9 - CHEST PAIN, UNSPECIFIED Qualifiers: Chest pain type: precordial chest pain (5) Dementia Assessment/Plan: Stable No home med Fall Precautions Complete immobility due to frailty, end-stage Dementia Requires total care Turn Q2h Shanti Lift as needed Heel Protectors Fall Precautions Code(s): F03.90 - UNSPECIFIED DEMENTIA WITHOUT BEHAVIORAL DISTURBANCE (6) Diabetes Assessment/Plan: BGMs ISS Continue Levemir Monitor renal function Code(s): E11.9 - TYPE 2 DIABETES MELLITUS WITHOUT COMPLICATIONS Qualifiers: (7) Elevated troponin Assessment/Plan: Likely secondary to demand ischemia Serial Enzymes noted Cardiology consult appreciated Code(s): R79.89 - OTHER SPECIFIED ABNORMAL FINDINGS OF BLOOD CHEMISTRY (8) Hypertension Assessment/Plan: suboptimal Hydralazine given in ED confirm home meds with daughter Monitor BP Code(s): I10 - ESSENTIAL (PRIMARY) HYPERTENSION Qualifiers: (9) Anemia Assessment/Plan: monitor Code(s): D64.9 - ANEMIA, UNSPECIFIED (10) DVT (deep venous thrombosis) Assessment/Plan: eliquis Code(s): I82.409 - ACUTE EMBOLISM AND THOMBOS UNSP DEEP VN UNSP LOWER EXTREMITY Qualifiers: DVT location: lower extremity Chronicity: chronic Laterality: left Condition: Stable - Instructions Referrals: Karson Powell MD [Primary Care Provider] - 2 Weeks - Home Medications Comprehensive Discharge Medication List: Ambulatory Orders Acetaminophen [Pain Relief] 500 mg PO QID PRN 12/23/18 Ammonium Lactate Cream [Lac-Hydrin 12% Cream -] 1 applic TP BID 12/23/18 Aspirin Coated [Ecotrin -] 81 mg PO DAILY 12/23/18 Atorvastatin Ca [Lipitor] 10 mg PO HS 12/23/18 Calcium Carbonate/Vitamin D3 [Calcium 500-Vit D3 400 Chew Tb] 1 tab.chew PO BID 12/23/18 Fenofibrate,Micronized [Antara] 90 mg PO DAILY 12/23/18 Folic Acid 1 mg PO DAILY 12/23/18 Icosapent Ethyl [Vascepa] 2 gm PO BID 12/23/18 Linaclotide [Linzess] 145 mcg PO DAILY 12/23/18 Thiamine HCl [B-1] 100 mg PO DAILY 12/23/18 Insulin (Levemir) [Levemir Vial] 7 units SQ AM #100 units 12/26/18 Iron Polysaccharides [Niferex-150 -] 150 mg PO DAILY #30 capsule 12/26/18 Valsartan [Diovan] 160 mg PO DAILY #30 tablet 12/26/18 Amlodipine Besylate [Norvasc -] 5 mg PO DAILY #30 tablet 09/11/19 Apixaban [Eliquis -] 2.5 mg PO BID #60 tablet 09/11/19 Furosemide [Lasix -] 20 mg PO DAILY #30 tablet 09/11/19 Nebivolol [Bystolic -] 10 mg PO DAILY #30 tab 09/11/19 Nitrofurantoin Macrocrystal [Macrodantin -] 50 mg PO Q6HPO #26 capsule 09/11/19 Spironolactone [Aldactone -] 25 mg PO DAILY #30 tablet 09/11/19
[2019-09-11] MEDS ORDERED: NITROFURANTOIN MACROCRYSTAL 50 MG CAPSULE (FP) PO SCH (12:00)
--- NOTE | 2019-09-11 12:05 | CONSULT ---
Consultation: REQUESTING PROVIDER: Dr. Powell CONSULT REQUEST: We have been asked to medically evaluate this patient for DVT. HISTORY OF PRESENT ILLNESS: Pt. is an 88 y.o. [place] speaking (translated by daughter at bedside) F w/ PMHx. of HTN, HLD, CKD (Stage3), Chronic Hyponatremia, Hx. of BCC(s/p surgery), Lung CA(s/p resection of very small nodule, no chemo or radiation) and Hx. of DVT(resolved on last Duplex in June) presents for newly diagnosed DVT. Pt. has become progressively weaker over the last year and is walking less and less. Pt. uses a wheelchair mostly and transitions from recliner to the wheelchair with the assistance of her daughter(lives with and is health care provider). Pt. endorses increased LLE swelling on hospital arrival that is improved. Pt. started on Eliquis today after 3 days of Lovenox. Daughter endorses that Pt. has not had weight loss, night sweat, GI bleeding or any recent abnormal findings on Colonoscopy(5 years ago) or last mammograms and Pap smears to the best of her knowledge. PT. denies any acute complaints. REVIEW OF SYSTEMS: As above PHYSICAL EXAMINATION Vital Signs - 24 hr 09/10/19 09/10/19 09/10/19 14:00 18:00 21:00 Temperature 97.8 F 97.7 F Pulse Rate 76 76 Respiratory 20 18 Rate Blood Pressure 157/78 152/78 O2 Sat by Pulse 96 Oximetry (%) 09/10/19 09/11/19 09/11/19 22:00 02:00 06:00 Temperature 97.8 F 97.9 F 97.4 F L Pulse Rate 68 66 65 Respiratory 18 19 18 Rate Blood Pressure 140/67 148/70 130/84 O2 Sat by Pulse Oximetry (%) 09/11/19 08:50 Temperature 98.3 F Pulse Rate 66 Respiratory 18 Rate Blood Pressure 144/68 O2 Sat by Pulse Oximetry (%) GENERAL: Awake, alert, and fully oriented, in no acute distress. HEAD: Normal with no signs of trauma. EYES: Pupils equal, round and reactive to light, extraocular movements intact, sclera anicteric, conjunctiva clear. No lid lag. EARS, NOSE, THROAT: Ears normal, nares patent, oropharynx clear without exudates. Moist mucous membranes. NECK: Normal range of motion, supple without lymphadenopathy, JVD, or masses. LUNGS: Breath sounds equal, clear to auscultation bilaterally. No wheezes, and no crackles. No accessory muscle use. HEART: Regular rate and rhythm, normal S1 and S2 without murmur, rub or gallop. ABDOMEN: Soft, nontender, not distended, normoactive bowel sounds, no guarding, no rebound, no masses. No hepatomegaly or splenomegaly. MUSCULOSKELETAL: Normal range of motion at all joints. No bony deformities or tenderness. No CVA tenderness. UPPER EXTREMITIES: 2+ pulses, warm, well-perfused. No cyanosis. No clubbing. Cap refill <2 seconds. No peripheral edema. LOWER EXTREMITIES: 2+ pulses, warm, well-perfused. No calf tenderness. No peripheral edema. NEUROLOGICAL: Cranial nerves II-XII intact. Normal speech. Normal gait. PSYCHIATRIC: Cooperative. Good eye contact. Appropriate mood and affect. SKIN: Warm, dry, normal turgor, no rashes or lesions noted. Laboratory Results - last 24 hr 09/10/19 09/10/19 16:58 21:17 POC Glucometer 152 148 Active Medications Generic Name Dose Route Start Last Admin Trade Name Freq PRN Reason Stop Dose Admin Amlodipine Besylate 5 mg 09/08/19 10:00 09/11/19 09:56 Norvasc - PO 5 mg DAILY [facility] Administration Apixaban 2.5 mg 09/10/19 10:00 09/11/19 09:56 Eliquis - PO 2.5 mg BID [facility] Administration Furosemide 20 mg 09/10/19 10:00 09/11/19 09:57 Lasix - PO 20 mg DAILY [facility] Administration Insulin Aspart 1 vial 09/08/19 11:00 09/11/19 06:18 Novolog Vial Sliding Scale - SQ 2 unit ACHS [facility] Administration Protocol Nebivolol 10 mg 09/08/19 10:09/11/19 09:55 Bystolic - PO 10 mg DAILY [facility] Administration Nitrofurantoin Macrocrystals 50 mg 09/11/19 12:00 Macrodantin - PO Q6HPO [facility] Spironolactone 25 mg 09/10/19 10:00 09/11/19 09:56 Aldactone - PO 25 mg DAILY [facility] Administration Valsartan 160 mg 09/08/19 10:00 09/11/19 09:57 Diovan - PO 160 mg DAILY [facility] Administration ASSESSMENT/PLAN: Pt. is an 88 y.o. Belgian speaking (translated by daughter at bedside) F w/ PMHx. of HTN, HLD, CKD (Stage3), Chronic Hyponatremia, Hx. of BCC(s/p surgery), Lung CA(s/p resection of very small nodule, no chemo or radiation) and Hx. of DVT(resolved on last Duplex in June) presents for newly diagnosed DVT. #DVT likely from decreased mobility and has Hx. of DVT in past will require life long AC on Eliquis will need routine assessment of renal function for dose reduction in the future if needed. Dispo: We will continue to follow the patient. Thank you for this consultative opportunity. Visit type - Emergency Visit Emergency Visit: Yes ED Registration Date: 09/08/19 Care time: The patient presented to the Emergency Department on the above date and was hospitalized for further evaluation of their emergent condition. - New Patient This patient is new to me today: Yes Date on this admission: 09/11/19 - Critical Care Critical Care patient: No ATTENDING PHYSICIAN STATEMENT I saw and evaluated the patient. I reviewed the resident's note and discussed the case with the resident. I agree with the resident's findings and plan as documented. SUBJECTIVE: OBJECTIVE: ASSESSMENT AND PLAN:
--- NOTE | 2019-09-11 12:35 | PN ---
Progress Note, Physician History of Present Illness: Pt seen and examined at bedside. She is awake and alert. SHe denies shortness of breath. - Current Medication List Current Medications: Active Medications Amlodipine Besylate (Norvasc -) 5 mg PO DAILY [facility] Last Admin: 09/11/19 09:56 Dose: 5 mg Documented by: Apixaban (Eliquis -) 2.5 mg PO BID [facility] Last Admin: 09/11/19 09:56 Dose: 2.5 mg Documented by: Furosemide (Lasix -) 20 mg PO DAILY [facility] Last Admin: 09/11/19 09:57 Dose: 20 mg Documented by: Insulin Aspart (Novolog Vial Sliding Scale -) 1 vial SQ ACHS [facility]; Protocol Last Admin: 09/11/19 12:12 Dose: 2 unit Documented by: Nebivolol (Bystolic -) 10 mg PO DAILY [facility] Last Admin: 09/11/19 09:55 Dose: 10 mg Documented by: Nitrofurantoin Macrocrystals (Macrodantin -) 50 mg PO Q6HPO [facility] Last Admin: 09/11/19 12:15 Dose: 50 mg Documented by: Spironolactone (Aldactone -) 25 mg PO DAILY [facility] Last Admin: 09/11/19 09:56 Dose: 25 mg Documented by: Valsartan (Diovan -) 160 mg PO DAILY [facility] Last Admin: 09/11/19 09:57 Dose: 160 mg Documented by: - Objective Vital Signs: Vital Signs Temperature 98.3 F 09/11/19 08:50 Pulse Rate 66 09/11/19 08:50 Respiratory Rate 18 09/11/19 08:50 Blood Pressure 144/68 09/11/19 08:50 O2 Sat by Pulse Oximetry (%) 96 09/10/19 21:00 Constitutional: Yes: Calm Eyes: Yes: Conjunctiva Clear HENT: Yes: Atraumatic Neck: Yes: Supple Cardiovascular: Yes: S1, S2 Respiratory: Yes: CTA Bilaterally Gastrointestinal: Yes: Soft Genitourinary: Yes: WNL Musculoskeletal: Yes: WNL Edema: No Neurological: Yes: Oriented Psychiatric: Yes: Oriented Labs: CBC, BMP 09/10/19 05:43 09/10/19 05:43 INR, PTT INR 1.06 (0.83-1.09) 09/08/19 14:55 Problem List - Problems (1) CHF (congestive heart failure) Code(s): I50.9 - HEART FAILURE, UNSPECIFIED (2) Hyponatremia Code(s): E87.1 - HYPO-OSMOLALITY AND HYPONATREMIA (3) Chronic kidney disease (CKD) Code(s): N18.9 - CHRONIC KIDNEY DISEASE, UNSPECIFIED Qualifiers: Chronic kidney disease stage: stage 1 Qualified Code(s): N18.1 - Chronic kidney disease, stage 1 Assessment/Plan Current Medications Generic Name Dose Route Start Last Admin Trade Name Michael PRN Reason Stop Dose Admin Amlodipine Besylate 5 mg 09/08/19 10:00 09/11/19 09:56 Norvasc - PO 5 mg DAILY [facility] Administration Apixaban 2.5 mg 09/10/19 10:00 09/11/19 09:56 Eliquis - PO 2.5 mg BID [facility] Administration Furosemide 20 mg 09/10/19 10:00 09/11/19 09:57 Lasix - PO 20 mg DAILY [facility] Administration Insulin Aspart 1 vial 09/08/19 11:00 09/11/19 12:12 Novolog Vial Sliding Scale - SQ 2 unit ACHS [facility] Administration Protocol Nebivolol 10 mg 09/08/19 10:00 09/11/19 09:55 Bystolic - PO 10 mg DAILY [facility] Administration Nitrofurantoin Macrocrystals 50 mg 09/11/19 12:00 09/11/19 12:15 Macrodantin - PO 50 mg Q6HPO [facility] Administration Spironolactone 25 mg 09/10/19 10:00 09/11/19 09:56 Aldactone - PO 25 mg DAILY [facility] Administration Valsartan 160 mg 09/08/19 10:00 09/11/19 09:57 Diovan - PO 160 mg DAILY [facility] Administration Impression 1. chest pain 2. CKD 3. HTN 4. hyponatremia 5. hx nsaid use 6. UTI 7. dementia 8. dvt Plan - cont diuretics - monitor sodium - pt has appointment with Dr Alvarez on Saturday - no new labs from today - avoid nsaids - avoid nephrotoxins
[2019-09-11 14:08] VITALS: BP 130/61; TEMP 98.4
== END 2019-09-11 18:30 | disposition home or self-care (01) | DRG 291 ==
LOC: JER 20:38 → JERBED 09-08 01:26 → J4S 09-08 04:49
PROVIDERS: ADMIT Internal Medicine; ATTEND Family Medicine
DX: I13.0 Hypertensive heart and chronic kidney disease with heart failure and stage 1 through stage 4 chronic kidney disease, or unspecified chronic kidney disease (principal); G93.41 Metabolic encephalopathy; R53.2 Functional quadriplegia; I50.33 Acute on chronic diastolic (congestive) heart failure; E87.1 Hypo-osmolality and hyponatremia; I24.8 Other forms of acute ischemic heart disease; N39.0 Urinary tract infection, site not specified; I82.409 Acute embolism and thrombosis of unspecified deep veins of unspecified lower extremity; G91.9 Hydrocephalus, unspecified; E78.5 Hyperlipidemia, unspecified; F03.90 Unspecified dementia, unspecified severity, without behavioral disturbance, psychotic disturbance, mood disturbance, and anxiety; E11.22 Type 2 diabetes mellitus with diabetic chronic kidney disease; N18.3 Chronic kidney disease, stage 3 (moderate); B96.20 Unspecified Escherichia coli [E. coli] as the cause of diseases classified elsewhere; R79.89 Other specified abnormal findings of blood chemistry; R60.0 Localized edema; I73.9 Peripheral vascular disease, unspecified; I25.10 Atherosclerotic heart disease of native coronary artery without angina pectoris; E11.51 Type 2 diabetes mellitus with diabetic peripheral angiopathy without gangrene; D32.9 Benign neoplasm of meninges, unspecified; I08.3 Combined rheumatic disorders of mitral, aortic and tricuspid valves; Z85.828 Personal history of other malignant neoplasm of skin; Z86.718 Personal history of other venous thrombosis and embolism; Z85.118 Personal history of other malignant neoplasm of bronchus and lung; Z99.3 Dependence on wheelchair
CPT/HCPCS: 36415; 70450-TC; 71045-TC-FY; 80053; 80061; 81003; 82550; 82728; 82962; 83036; 83540; 83550; 83721; 83735; 83880; 84100; 84443; 84484; 85025; 85027; 85610; 85730; 87086; 87186; 93005; 93010; 93306-TC; 93970-TC; 97116-GP; 97161-GP; 99285-25; J1644; U0003